=== PATIENT | female | born 1960 | race Caucasian/White ===

== ENCOUNTER 2018-10-17 00:47 | Emergency (ER) | payer BC ==
--- OUTSIDE RECORDS SUMMARY | 2018-10-17 00:50 | XMS REPORT | Clinical Summary ---
:1960 Author Organization [facility] Address [address] [place] [address] Care Team Providers Name Role Phone Stanley Santoro MD Primary Care Provider Allergies No Known Allergies Medications Medication Sig Dispensed Refills Start End Status Date Date nortriptyline Take 1 capsule 60 capsule 2 01/19/20 Active (PAMELOR) 10 MG (10 mg total) 18 019 capsule by mouth 2 (two) times a day. nitrofurantoin, To take after 30 capsule 1 08/31/19 Active macrocrystal-monohyd intercourse 19 020 rate, (MACROBID) 100 MG capsule gabapentin Take 1 capsule 90 capsule 11 08/31/19 Active (NEURONTIN) 300 mg (300 mg total) 19 020 capsule by mouth 3 (three) times a day. amb custom compound Valium 10mg compounded vaginal suppository 90 suppository 0 08/31/19 Active Insert into the vagina 2 times per day for 6 weeks 19 Dispense : 90 Refill: No DIVIGEL 0.5 mg/0.5 APPLY 1 PACKET 28 each 09/07/19 Active gram (0.1 %) gel in TO THIGH DAILY 19 packet estradiol (ESTRACE) Take 1 mg by 0 Discontinued 1 MG tablet mouth daily. 019 gabapentin Take 1 capsule 90 capsule 3 10/05/19 Discontinued (NEURONTIN) 100 mg (100 mg total) 18 018 capsule by mouth 3 (three) times a day. meloxicam (MOBIC) Take 1 tablet 30 tablet 3 10/05/19 Discontinued 7.5 mg tablet (7.5 mg total) 18 019 by mouth daily. nitrofurantoin, Take 1 capsule 30 capsule 0 10/05/19 macrocrystal-monohyd (100 mg total) 18 018 rate, (MACROBID) 100 by mouth as MG capsule needed (intercourse) for up to 30 days. fluconazole Take 1 tablet 3 tablet 0 10/27/19 (DIFLUCAN) 150 MG (150 mg total) 18 018 tablet by mouth daily for 3 doses. nitrofurantoin, Take 1 capsule 30 capsule 1 12/05/19 macrocrystal-monohyd (100 mg total) 18 018 rate, (MACROBID) 100 by mouth daily MG capsule for 30 days. busPIRone (BUSPAR) Take 1 tablet 60 tablet 11 12/05/19 Discontinued 7.5 MG tablet (7.5 mg total) 18 018 by mouth 2 (two) times a day. ciprofloxacin HCl Take 1 tablet 6 tablet 0 12/11/19 (CIPRO) 250 MG (250 mg total) 18 018 tablet by mouth 2 (two) times a day for 3 days. fluconazole Take 1 tablet 1 tablet 0 12/11/19 (DIFLUCAN) 200 MG (200 mg total) 18 018 tablet by mouth once for 1 dose. triamcinolone Inject 1 mL (40 1 mL 0 12/15/19 acetonide (KENALOG) mg total) into 18 018 40 mg/mL injection the shoulder, thigh, or buttocks once for 1 dose. HYDROcodone-acetamin Take 1 tablet 30 tablet 0 12/15/19 ophen (NORCO) 5-325 by mouth every 18 018 mg per tablet 6 (six) hours as needed for moderate pain for up to 30 days. Max Daily Amount: 4 tablets sulfamethoxazole-tri Take 1 tablet 14 tablet 0 12/19/19 methoprim (BACTRIM by mouth 2 18 018 DS) 800-160 mg per (two) times a tablet day for 7 days. fluconazole Take 1 tablet 1 tablet 0 12/19/19 (DIFLUCAN) 200 MG (200 mg total) 18 018 tablet by mouth once for 1 dose. amb custom compound Capsaicin 0.05% in a non-menthol base 30 g 0 12/22/19 Discontinued Apply 1 gram to vulva daily 018 Dispense: 30 grams Refill: none lidocaine Apply topically 35.44 g 0 12/22/19 Discontinued (XYLOCAINE) 5 % as needed for 019 ointment mild pain. polyethylene glycol Take 4,000 mL 4000 mL 0 12/27/19 (GOLYTELY) by mouth once 18 018 236-22.74-6.74 -5.86 for 1 dose. gram solution lactulose Take 30 mL (20 2700 mL 0 12/27/19 (CHRONULAC) 10 g total) by 18 018 gram/15 mL solution mouth 3 (three) times a day for 30 days. methylnaltrexone Take 450 mg by 3 tablet 0 12/27/19 (RELISTOR) 150 mg mouth daily for 18 018 tablet 3 days. zolpidem (AMBIEN) 10 Take 1 tablet 10 tablet 0 12/27/19 mg tablet (10 mg total) 18 018 by mouth nightly as needed for sleep for up to 10 days. diazePAM (VALIUM) 10 Take 1 tablet 1 tablet 0 01/01/20 MG tablet (10 mg total) 18 018 by mouth once for 1 dose. Take 1 tab about 15-20 minutes prior to procedure triamcinolone Inject 1 mL (40 1 mL 0 01/02/20 acetonide (KENALOG) mg total) into 18 018 40 mg/mL injection the shoulder, thigh, or buttocks once for 1 dose. amb custom compound Capsaicin 0.05% in a non-menthol base 30 g 0 01/10/20 Discontinued Apply 1 gram to vulva daily Dispense: 30 grams Refill: none gabapentin Take 1 capsule 90 capsule 11 01/11/20 Discontinued (NEURONTIN) 300 mg (300 mg total) 18 019 capsule by mouth 3 (three) times a day. ciprofloxacin HCl Take 1 tablet 6 tablet 0 01/18/20 (CIPRO) 250 MG (250 mg total) 18 018 tablet by mouth 2 (two) times a day for 3 days. fluconazole Take 1 tablet 1 tablet 0 01/18/20 (DIFLUCAN) 200 MG (200 mg total) 18 018 tablet by mouth once for 1 dose. DIVIGEL 0.5 mg/0.5 APPLY 1 PACKET 11 08/14/19 Discontinued gram (0.1 %) gel in TO THIGH DAILY 19 019 packet Active Problems Not on file Encounters Date Type Specialty Care Team Description 09/11/2018 Telephone Obstetrics and Jaz Bean MD Gynecology 09/06/2018 Orders Only Obstetrics and Liya Alvarez Gynecology RN 08/30/2018 Office Visit Obstetrics and Jaz Bean MD Pudendal neuralgia ( Primary Dx); Gynecology Pelvic pain; Vaginismus; Pelvic floor dysfunction; Frequent UTI; Vulvodynia; Menopause 08/12/2018 Telephone Obstetrics and Jaz Bean MD Gynecology 06/11/2018 Orders Only Obstetrics and Liya Alvarez Pudenlesia neuralgia Gynecology RN (Primary Dx) 06/11/2018 Telephone Obstetrics and Jaz Bean MD Gynecology 01/31/2018 Telephone Obstetrics and Jaz Bean MD Gynecology 01/18/2018 Office Visit Pain Medicine Jaz Bean MD Other chronic pain (Primary Dx); Nikolai Jackson Pudendal neuralgia; MD Surya Vulvodynia 01/17/2018 Telephone Obstetrics and Jaz Bean MD Gynecology 01/17/2018 Orders Only Obstetrics and Jaz Bean MD Gynecology 01/08/2018 Telephone Obstetrics Jaz Farfan MD Gynecology 01/01/2018 Procedure visit Obstetrics and Jaz Bean MD Pudendal neuralgia (Primary Dx); Gynecology Vulvodynia; Atrophic vaginitis; History of recurrent UTIs; Anxiety 12/31/2017 Orders Only Obstetrics and Jaz Bean MD Gynecology 12/31/2017 Telephone Obstetrics and Jaz Bean MD Gynecology 12/26/2017 Emergency Emergency Medicine Lan [place], Constipation, unspecified constipation type (Primary Dx); DO Dehydration; Other chronic pain 12/26/2017 Telephone Obstetrics and Jaz Bean MD Gynecology 12/21/2017 Orders Only Obstetrics and Jaz Bean MD Gynecology 12/19/2017 Telephone Obstetrics and Jaz Bean MD Gynecology 12/17/2017 Telephone Obstetrics and Jaz Bean MD Gynecology 12/14/2017 Orders Only Obstetrics and Jaz Bean MD Gynecology 12/14/2017 Telephone Obstetrics and Jaz Bean MD Gynecology 12/10/2017 Orders Only Obstetrics and Jaz Bean MD Gynecology 12/10/2017 Telephone Obstetrics and Jaz Bean MD Gynecology 12/04/2017 Office Visit Obstetrics and Jaz Bean MD Vulvodynia (Primary Dx); Gynecology Urinary tract infection without hematuria, site unspecified; Atrophic vaginitis; Pudendal neuralgia; Menopause; Anxiety 11/29/2017 Telephone Obstetrics and Jaz Bean MD Gynecology 10/26/2017 Orders Only Obstetrics and Sejal Guillermo Gynecology MD Todd after 10/16/2017 Family History Medical History Relation Name Comments Prostate cancer Brother Lung cancer Father Alzheimer's disease Mother Relation Name Status Comments Brother Father Mother Social History Tobacco Use Types Packs/Day Years Used Date Never Smoker Smokeless Tobacco: Never Used Tobacco Cessation: Counseling Given: No Alcohol Use Drinks/Week oz/Week Comments Yes 2 Glasses of wine 1.2 socially Sex Assigned at Date Recorded Not on file Job Start Date Occupation Industry Not on file Not on file Not on file Travel History Travel Start Travel End No recent travel history available. Last Filed Vital Signs Vital Sign Reading Time Taken Blood Pressure 130/84 08/30/2018 8:55 AM CDT Pulse 84 08/30/2018 8:55 AM CDT Temperature 36.5 C (97.7 F) 12/26/2017 12:54 PM CDT Respiratory Rate 18 12/26/2017 12:54 PM CDT Oxygen Saturation 97% 12/26/2017 12:54 PM CDT Inhaled Oxygen Concentration - - Weight 100 kg (220 lb 9.6 oz) 08/30/2018 8:55 AM CDT Height 165.1 cm (5' 5") 08/30/2018 8:55 AM CDT Body Mass Index 36.71 08/30/2018 8:55 AM CDT Plan of Treatment Date Type Specialty Care Team Description 10/31/2018 Office Visit Physical Therapy Jaz Bean MD [address] [place] [address] [phone] Nyla Preston, PT 11/12/2018 Office Visit Obstetrics and Gynecology Jaz Bean MD [address] [place] [address] [phone] Health Maintenance Due Date Last Done Comments BREAST CANCER SCREENING 2010 COLONOSCOPY SCREENING 2010 SHINGLES VACCINES (#1) 2010 INFLUENZA VACCINE 12/05/2018 Procedures Procedure Name Priority Date/Time Associated Diagnosis Comments THINPREP TIS PAP Routine 08/30/2018 10:40 Pelvic pain Results for this AM CDT procedure are in the results section. URINE CULTURE Routine 02/12/2018 1:46 UTI symptoms Results for this PM CDT procedure are in the results section. URINE CULTURE Routine 01/14/2018 11:54 UTI symptoms Results for this AM CDT procedure are in the results section. XR KUB KIDNEY URETER STAT 12/26/2017 12:12 Results for this BLADDER PM CDT procedure are in the results section. URINALYSIS STAT 12/26/2017 11:50 Results for this AM CDT procedure are in the results section. URINE CULTURE Routine 12/04/2017 6:00 Urinary tract Results for this PM CDT infection without procedure are in hematuria, site the results unspecified section. after 10/16/2017 Results THINPREP TIS PAP (08/30/2018 10:40 AM CDT) Clinical information None given [employer] [place] Date of last menstrual NONE [facility]IVEN [facility] [place] Prev. pap: NONE GIVEN [facility] [place] Prev. bx: NONE [facility]IV[facility] [place] Source Vagina [facility] [place] Statement of adequacy [facility] Comment: DIAGNOSTICS Satisfactory for evaluation. [place] Endocervical/transformation zone component absent. Interpretation/result: Comment: Negative for [facility] intraepithelial [facility]ST[facility] lesion or malignancy. [place] Comment [facility] Comment: DIAGNOSTICS This Pap test has been evaluated with computer [employer] technology. [employer] [facility] Comment: DIAGNOSTICS LLL,CT(ASCP) [place] CT screening location: [address] [address] Comment [facility] Comment: DIAGNOSTICS EXPLANATORY NOTE: [place] The Pap is a screening test for cervical cancer. It is not a diagnostic test and is subject to false negative and false positive results. It is most reliable when a satisfactory sample, regularly obtained, is submitted with relevant clinical findings and history, and when the Pap result is evaluated along with historic and current clinical information. Specimen Swab Resulting Agency Comment Performing Organization Information: Site ID: [id number] Name: [facility] Address: [address] [place] [phone] Director: Lisa Raines Performing Organization Address [facility] [place] [address] Urine culture (02/12/2018 1:46 PM CDT)Only the most recent of3 resultswithin the time period is included. Urine culture SEE NOTE [facility] Comment: [place] CULTURE, URINE, ROUTINE MICRO NUMBER:[id number] TEST STATUS: FINAL SPECIMEN SOURCE: URINE SPECIMEN QUALITY:ADEQUATE RESULT:No Growth Specimen Urine - Urine, clean catch Narrative Performed At FASTING:NO [facility] FASTING: NO Resulting Agency Comment Performing Organization Information: Site ID: [id number] Name: [facility] Address: [address] [place] [phone] Director: Lisa Raines Performing Organization Address [facility] [place] [address] XR Kub Kidney Ureter Bladder (12/26/2017 12:12 PM CDT) Specimen Narrative Performed At EXAMINATION:XR KUB KIDNEY URETER BLADDER [facility] CLINICAL HISTORY:Abd painunspecified COMPARISON:None. IMPRESSION: 1.Stool is present throughout the colon. Surgical clips are seen in the pelvis. Lung bases are free of infiltrates. Surgical clips are seen in the pelvis. Suspicious osseous lesion is not seen. [id number] Procedure Note Hm Interface, Radiology Results Incoming - 12/26/2017 1:23 PM CDT EXAMINATION: XR KUB KIDNEY URETER BLADDER CLINICAL HISTORY: Abd pain unspecified COMPARISON: None. IMPRESSION: 1. Stool is present throughout the colon. Surgical clips are seen in the pelvis. Lung bases are free of infiltrates. Surgical clips are seen in the pelvis. Suspicious osseous lesion is not seen. [id number] Performing Organization Address City/[facility]/Zipcode Phone Number [facility] [address] [place] [address] Urinalysis (12/26/2017 11:50 AM CDT) Glucose, UA Negative Negative [facility] Bilirubin, UA Negative Negative [facility] Ketones, UA 1+ (A) Negative [facility] Specific gravity, =>1.030 1.001 - 1.035 [facility] Blood, UA Negative Negative [facility] pH, UA 5.0 5.0 - 8.5 [facility] Protein, UA Negative Negative [facility] Urobilinogen, UA <2.0 <2.0 [facility] Nitrite, UA Negative Negative [facility] Leukocyte Negative Negative DEPARTMENT OF esterase, UA [facility] Color, UA Yellow [facility] Appearance, UA Slightly Hazy [facility] Specimen Urine Performing Organization Address City/[facility]/Zipcode Phone Number DEPARTMENT OF PATHOLOGY AND [address] [place] [phone] [facility] after 10/16/2017 Advance Directives Patient has advance care planning documents on file. For more information, please contact:Garry Segundo[address] [place] [address]
[2018-10-17 01:22] LABS: Absolute Lymphocytes (CBC) 3.4 K/uL (0.7-4.9); Absolute Monocytes 0.7 K/uL (0.1-1.3); Absolute Neutrophil 7.6 K/uL (1.8-8.0); Basophils % 0.7 % (0-1.3); Eosinophils % 1.3 % (0-4.4); Hematocrit 43.3 % (36.0-45.0); Lymphocytes % 28.3 % (15.3-44.8); Monocytes % 5.7 % (3.3-12.3); RBC Red Blood Cell Count 4.76 M/uL (3.86-4.86)
[2018-10-17] MEDS ORDERED: MEPERIDINE HCL 25 MG/0.5 ML ONE ×3 (01:27→03:08)
[2018-10-17] MEDS ORDERED: FLEET ENEMA ADULT PR ONE (01:28)
[2018-10-17] MEDS ORDERED: NA CHLORIDE 0.9% 1,000 ML ONE (01:28)
[2018-10-17] MEDS ORDERED: GLYCERIN PEDI RECTAL SUPP PR ONE (01:31)
[2018-10-17 01:39] LABS: ALT/SGPT 25 U/L (12-78); AST/SGOT 14 U/L (15-37); Albumin 3.8 g/dL (3.4-5.0); Alkaline Phosphatase 102 U/L (45-117); BUN Blood Urea Nitrogen 17 mg/dL (7-18); Bicarbonate 26 mmol/L (21-32); Bilirubin Direct < 0.1 mg/dL (0-0.2); Bilirubin Total 0.3 mg/dL (0.2-1.0); Glucose Level 123 mg/dL (74-106); Lipase 228 U/L (73-393); Potassium 3.4 mmol/L (3.5-5.1); Protein, Total 7.6 g/dL (6.4-8.2); Sodium Level 141 mmol/L (136-145)
--- NOTE | 2018-10-17 04:02 | ER ---
Nurse's Notes [facility] Name: Paulina Ryan Age: 57 yrs Sex: Female : 1960 Arrival Date: 10/17/2018 Time: 00:50 Bed 13 Private MD: Stanley Santoro Diagnosis: Constipation, unspecified;Possible acalculous cholecystitis Presentation: 10/17 00:57 Presenting complaint: Patient states: "I think I'm severely impacted"; Patient lp1 restless, crying, pain to entire abdomen, lower back; States last BM on Sunday, has been unable to pass gas; States [employer] she was rolling around on floor and she was able to pass some gas. Transition of care: patient was not received from another setting of care. Onset of symptoms. Risk Assessment: Do you want to hurt yourself or someone else? Patient reports no desire to harm self or others. Initial Sepsis Screen: Does the patient meet any 2 criteria? No. Patient's initial sepsis screen is negative. Does the patient have a suspected source of infection? No. Patient's initial sepsis screen is negative. Care prior to arrival: None. 00:57 Method Of Arrival: Wheelchair lp1 00:57 Acuity: CHENTE 3 lp1 Historical: - Allergies: 01:00 No Known Allergies; lp1 - Home Meds: 01:00 gabapentin oral oral [Active]; lp1 - PMHx: 01:00 nerve pain; lp1 - PSHx: 01:00 Appendectomy; ; lp1 - Immunization history:: Adult Immunizations up to date. - Social history:: Smoking status: Patient/guardian denies using tobacco. - Ebola Screening: : No symptoms or risks identified at this time. - Family history:: not pertinent. - Hospitalizations: : No recent hospitalization is reported. Screenin:01 Abuse screen: Denies threats or abuse. Denies injuries from another. Nutritional lp1 screening: No deficits noted. Tuberculosis screening: No symptoms or risk factors identified. Fall Risk None identified. Assessment: 01:00 General: Appears uncomfortable, Behavior is anxious, crying, restless. Pain: Complains lp1 of pain in lumbar area and abdomen Pain currently is 10 out of 10 on a pain scale. Noted to be crying, restless. Neuro: Level of Consciousness is awake, alert, obeys commands, Oriented to person, place, time, situation. Cardiovascular: Patient's skin is warm and dry. Respiratory: Respiratory effort is even, unlabored. GI: Abdomen is distended, Bowel sounds present X 4 quads. Abdomen is tender to palpation X 4 quads. Reports constipation. : No signs and/or symptoms were reported regarding the genitourinary system. EENT: No signs and/or symptoms were reported regarding the EENT system. Derm: Skin is pink, warm \\T\\ dry. Musculoskeletal: No deficits noted. 01:30 Reassessment: Patient continuing to be restless, no pain relief; Provider notified. lp1 02:20 Reassessment: Patient returned from bathroom; States able to have BM but continued lp1 abdominal pain; Provider notified of continued pain. 02:45 Reassessment: Patient returned from CT; Verbal order per Provider for Demerol 25mg IV. lp1 03:45 Reassessment: Patient appears in no apparent distress at this time. Patient and/or jb4 family updated on plan of care and expected duration. Pain level reassessed. Patient is alert, oriented x 3, equal unlabored respirations, skin warm/dry/pink. Provider at the bedside. 04:00 Reassessment: Dr. Shin at bedside to discuss results with patient and family ; plan of lp1 care discussed; Patient prefers to be discharged and go to another facility for further evaluation; Patient states some improvement of abdominal pain at this time; rated at 7/10. Vital Signs: 00:59 BP 171 / 98; Pulse 68; Resp 18; Temp 97.5(O); Pulse Ox 100% on R/A; Weight 86.18 kg; lp1 Height 5 ft. 5 in. (165.10 cm); Pain 10/10; 02:20 BP 146 / 79; Pulse 63; Resp 18; Pulse Ox 100% on R/A; Pain 8/10; lp1 04:00 BP 131 / 88; Pulse 77; Resp 16; Pulse Ox 100% on R/A; jb4 04:15 Pain 7/10; lp1 00:59 Body Mass Index 31.62 (86.18 kg, 165.10 cm) lp1 ED Course: 00:50 Patient arrived in ED. am2 00:51 Stanley Santoro MD is Private Physician. am2 00:57 Endy Shin MD is Attending Physician. rn 00:59 Triage completed. lp1 00:59 Arm band placed on left wrist. lp1 01:01 Patient has correct armband on for positive identification. Placed in gown. Bed in low lp1 position. Pulse ox on. NIBP on. 01:06 Abiodun Chavez, RN is Primary Nurse. jb4 01:08 Initial lab(s) drawn, by ms, sent to lab. Inserted saline lock: 20 gauge in right lt1 antecubital area, using aseptic technique. 01:46 Minoo Pinedo, RN is Primary Nurse. lp1 02:[address] via stretcher. lp1 02:54 CT completed. Patient tolerated procedure well. Patient moved back from CT. eh 02:55 CT Abd/Pelvis - IV Contrast Only In Process Unspecified. EDMS 04:01 Roscoe Reveles MD is Referral Physician. rn 04:25 No provider procedures requiring assistance completed. IV discontinued, No lp1 redness/swelling at site. Pressure dressing applied. Administered Medications: 01:20 Drug: NS 0.9% 1000 ml Route: IV; Rate: 1000 ml; Site: right antecubital; lp1 03:14 Follow up: IV Status: Completed infusion; IV Intake: 1000ml lp1 01:20 Drug: Demerol 25 mg Route: IVP; Site: right antecubital; lp1 01:30 Follow up: Response: Pain is unchanged, physician notified lp1 01:20 Drug: Glycerin (Adult) Suppository 1 supp Route: IL; lp1 02:30 Follow up: Response: No adverse reaction lp1 01:32 Drug: Demerol 25 mg Route: IVP; Site: right antecubital; lp1 02:15 Follow up: Response: Pain is unchanged, physician notified lp1 01:42 Drug: Fleet Enema 133 ml Route: IL; lp1 02:30 Follow up: Response: No adverse reaction; Other; Patient states moderate BM lp1 02:57 Drug: Demerol 25 mg Route: IVP; Site: right antecubital; lp1 03:11 Follow up: Response: Pain is decreased lp1 Intake: 03:14 IV: 1000ml; Total: 1000ml. lp1 Outcome: 04:02 Discharge ordered by . rn 04:10 Discharged to home ambulatory, with significant other. lp1 04:10 Condition: good 04:10 Discharge instructions given to patient, Instructed on discharge instructions, follow up and referral plans. Demonstrated understanding of instructions, follow-up care. 04:15 Patient left the ED. lp1 Signatures: Dispatcher [employer] EDSridhar Conner Roman, MD MD rn Pena, Laura RN RN lp1 Abiodun Chavez RN RN jb4 Dayna Mueller am2 Nelida La 1 Corrections: (The following items were deleted from the chart) 04:03 03:45 BP 131 / 88; Pulse 77bpm; Resp 16bpm; Pulse Ox 100% RA; jb4 jb4 04:27 04:00 Reassessment: Dr. Shin at bedside to discuss results with patient and family ; lp1 plan of care discussed; Patient prefers to be discharged and go to another facility for further evaluation lp1 04:28 04:27 Patient left the ED. lp1 lp1
--- NOTE | 2018-10-17 04:03 | EDPHYS ---
Physician Documentation [facility] Name: Paulina Ryan Age: 57 yrs Sex: Female : 1960 Arrival Date: 10/17/2018 Time: 00:50 Bed 13 Private MD: Stanley Santoro ED Physician Endy Shin HPI: 10/17 01:04 This 57 yrs old Female presents to ER via Wheelchair with complaints of rn Abdominal Pain, Back Pain, Constipation. 01:05 The patient presents with abdominal pain abdominal distention. Onset: The rn symptoms/episode began/occurred just prior to arrival. The symptoms do not radiate. Associated signs and symptoms: Pertinent positives: constipation, Pertinent negatives: nausea and vomiting, blood in stools, fever. The symptoms are described as intermittent, sharp. Modifying factors: The symptoms are alleviated by nothing, the symptoms are aggravated by touching the area. Severity of pain: At its worst the pain was moderate in the emergency department the pain is unchanged. The patient has experienced a previous episode. The patient has not recently seen a physician. Reports abd pain, feels bloated, went to bed fine, has irregular bowel movements, reports woke up with abd pain, sharp, stabbing, able to pas gas. Has been impacted before and manually assisted herself in past. Reports last BM 2 days ago which isn't that abnormal for her. No vomiting.. Historical: - Allergies: 01:00 No Known Allergies; lp1 - Home Meds: 01:00 gabapentin oral oral [Active]; lp1 - PMHx: 01:00 nerve pain; lp1 - PSHx: 01:00 Appendectomy; ; lp1 - Immunization history:: Adult Immunizations up to date. - Social history:: Smoking status: Patient/guardian denies using tobacco. - Ebola Screening: : No symptoms or risks identified at this time. - Family history:: not pertinent. - Hospitalizations: : No recent hospitalization is reported. ROS: 01:05 Constitutional: Negative for fever, chills, and weight loss, Eyes: Negative for injury, rn pain, redness, and discharge, Neck: Negative for injury, pain, and swelling, Cardiovascular: Negative for chest pain, palpitations, and edema, Respiratory: Negative for shortness of breath, cough, wheezing, and pleuritic chest pain, Abdomen/GI: + abd pain and constipation Back: Negative for injury : Negative for injury, bleeding, discharge, and swelling, MS/Extremity: Negative for injury and deformity, Skin: Negative for injury, rash, and discoloration, Neuro: Negative for headache, weakness, numbness, tingling, and seizure. Exam: 01:05 Constitutional: This is a well developed, well nourished patient who is awake, alert, rn appears uncomfortable, crying Head/Face: Normocephalic, atraumatic. Eyes: Pupils equal round and reactive to light, extra-ocular motions intact. Lids and lashes normal. Conjunctiva and sclera are non-icteric and not injected. Cornea within normal limits. Periorbital areas with no swelling, redness, or edema. ENT: MMM Abdomen/GI: soft, mild mid abd tenderness, no rebound, no peritoneal signs, no masses Skin: Warm, dry MS/ Extremity: Pulses equal, no cyanosis. Neurovascular intact. Full, normal range of motion. Equal circumference. Neuro: Awake and alert, GCS 15. Vital Signs: 00:59 BP 171 / 98; Pulse 68; Resp 18; Temp 97.5(O); Pulse Ox 100% on R/A; Weight 86.18 kg; lp1 Height 5 ft. 5 in. (165.10 cm); Pain 10/10; 02:20 BP 146 / 79; Pulse 63; Resp 18; Pulse Ox 100% on R/A; Pain 8/10; lp1 04:00 BP 131 / 88; Pulse 77; Resp 16; Pulse Ox 100% on R/A; jb4 04:15 Pain 7/10; lp1 00:59 Body Mass Index 31.62 (86.18 kg, 165.10 cm) lp1 Procedures: 03:57 Performed Bedside ultrasound performed by Dr. Shin to further evaluate gallbladder rn given ultrasound not available until 7AM or maybe later. Gallbladder appears distended, no stones, gallbladder wall borderline at 3.2 mm, no obvious pericholecystic fluid noted. . MDM: 00:57 Patient medically screened. rn 03:57 Differential diagnosis: cholecystitis, Cholelithiasis, diverticulitis, gastritis, rn gastroesophageal reflux disease, non-specific abd pain, constipation. Data reviewed: vital signs, nurses notes, lab test result(s), radiologic studies, CT scan, and as a result, I will admit patient. Counseling: I had a detailed discussion with the patient and/or guardian regarding: the historical points, exam findings, and any diagnostic results supporting the discharge/admit diagnosis, lab results, radiology results, the need for further work-up and treatment in the hospital. Response to treatment: the patient's symptoms have mildly improved after treatment, and as a result, I will admit patient. ED course: Recommended we hold her here for ultrasound when they arrive at 0700, and then admission if needed for early cholecystitis, declines, states he was decided to take her to another hospital, states plans on taking her straight to [facility] in [place]. Doesn't give reason for doing so, spoke with him about risks of driving her there and also mentioned she is still in pain, he states he has made up his mind. I printed out the results for him so that maybe they don't have to repeat the w/u and get her the ultrasound she needs. No signs of impaction or even significant stool burden, possibly ileus due to abdominal inflammation elsewhere. . 04:02 ED course: Requests to be discharged. . 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 10/17 01:03 Order name: Basic Metabolic Panel rn 10/17 01:03 Order name: CBC with Diff; Complete Time: 01:32 rn 10/17 01:03 Order name: Hepatic Function; Complete Time: 02:00 rn 10/17 01:03 Order name: Lipase; Complete Time: 02:00 rn 10/17 01:04 Order name: Creatinine (Radiology Only); Complete Time: 02:00 EDNJ 10/17 01:03 Order name: CT Abd/Pelvis - IV Contrast Only rn 10/17 01:04 Order name: Basic Metabolic Panel; Complete Time: 02:00 EDNJ 10/17 01:03 Order name: IV Saline Lock; Complete Time: 01:08 rn 10/17 01:03 Order name: Labs collected and sent; Complete Time: 01:08 rn Administered Medications: 01:20 Drug: NS 0.9% 1000 ml Route: IV; Rate: 1000 ml; Site: right antecubital; lp1 03:14 Follow up: IV Status: Completed infusion; IV Intake: 1000ml lp1 01:20 Drug: Demerol 25 mg Route: IVP; Site: right antecubital; lp1 01:30 Follow up: Response: Pain is unchanged, physician notified lp1 01:20 Drug: Glycerin (Adult) Suppository 1 supp Route: KS; lp1 02:30 Follow up: Response: No adverse reaction lp1 01:32 Drug: Demerol 25 mg Route: IVP; Site: right antecubital; lp1 02:15 Follow up: Response: Pain is unchanged, physician notified lp1 01:42 Drug: Fleet Enema 133 ml Route: KS; lp1 02:30 Follow up: Response: No adverse reaction; Other; Patient states moderate BM lp1 02:57 Drug: Demerol 25 mg Route: IVP; Site: right antecubital; lp1 03:11 Follow up: Response: Pain is decreased lp1 Disposition: 10/17/18 04:02 Discharged to Home. Impression: Constipation, unspecified, Possible acalculous cholecystitis. - Condition is Stable. - Discharge Instructions: Abdominal Pain, Adult, Constipation, Adult. - Medication Reconciliation Form, Thank You Letter, Antibiotic Education, Prescription Opioid Use form. - Follow up: Roscoe Reveles MD; When: Upon discharge from the Emergency Department; Reason: Recheck today's complaints, Re-evaluation by your physician. - Problem is new. - Symptoms have improved. Signatures: Dispatcher [employer] EDMS Endy Shin MD MD rn Pena, Laura, RN RN lp1 Corrections: (The following items were deleted from the chart) 04:27 04:02 10/17/2018 04:02 Discharged to Home. Impression: Constipation, unspecified; lp1 Possible acalculous cholecystitis. Condition is Stable. Forms are Medication Reconciliation Form, Thank You Letter, Antibiotic Education, Prescription Opioid Use. Follow up: Roscoe Reveles; When: Upon discharge from the Emergency Department; Reason: Recheck today's complaints, Re-evaluation by your physician. Problem is new. Symptoms have improved. rn
[2018-10-17 04:37] VITALS: O2SAT 100
[2018-10-17 04:39] VITALS: TEMP 97.5
[2018-10-17 04:40] VITALS: BP 131/88
--- NOTE | 2018-10-17 10:27 | RAD REPORT ---
EXAM DESCRIPTION: CT - Abdomen Pelvis W Contrast - 10/17/2018 6:53 am CLINICAL HISTORY: 57-year-old female with left-sided abdominal pain, history of appendectomy and end ometriosis surgery as well as two prior sections TECHNIQUE: Axial CT imaging of the abdomen and pelvis was performed following the administration of intravenous contrast.. Sagittal and coronal reconstructed images were then performed. The CT stud y is performed according to ALARA (as low as reasonably achievable) or ALARA/IMAGE GENTLY, with autom atic adjustment of mA and/or kV according to patient size. Performed on: 10/17/2018 at 2:44 AM. COMPARISON: Prior CT abdomen and pelvis performed on 03/11/2012 FINDINGS: Lung bases: The lung bases are grossly clear. Liver: The liver is top normal in size and is normal in configuration. No focal hepatic abnormalities are identified. Liver attenuation is within normal limits. Spleen: The spleen is normal is size, configuration and attenuation. Gallbladder and bile duct: The gallbladder is moderately distended. There is questionable perichole cystic inflammation. There is no biliary ductal dilatation. Pancreas: The pancreas is grossly normal in size and configuration. Adrenal Glands: The adrenal glands are normal in size and configuration. Kidneys: The kidneys are normal in size and configuration. There is no evidence of hydronephrosis. Th ere is no evidence of nephrolithiasis. No definite solid or cystic renal mass lesions are identified. Stomach: The stomach is grossly normal. There is no definite hiatal hernia. Bowel: The bowel gas pattern is non specific and non obstructive. There is questionable bowel wall th ickening involving the rectosigmoid colon. Appendix: The appendix is surgically absent. Free air: There is no evidence of free air. Free fluid: There is no evidence of free fluid. Vasculature: The aorta is normal in caliber and contour. The inferior vena cava is grossly unremarkab le. There are mild atherosclerotic calcifications along the aorta and iliac arteries. Lymphadenopathy: No pathologic lymphadenopathy is identified. Bladder: The bladder is well distended and smooth in contour. Reproductive: The uterus is surgically absent. Bones: No acute osseous abnormalities are identified. Soft tissues: No focal soft tissue abnormalities are identified. IMPRESSION: 1. Nonspecific and nonobstructive bowel gas pattern. There is questionable bowel wall th ickening involving the rectosigmoid colon. 2. Moderate distention of the gallbladder with questionable pericholecystic inflammation. 3. Remote appendectomy and hysterectomy. 4. No focal abnormalities are identified to explain the patient's left-sided symptoms. Electronically signed by: Tonia Lake DO 10/17/2018 3:12 AM CDT Due to temporary technical issues with the PACS/Fluency reporting system, reports are being signed by the in house radiologist as a courtesy to ensure prompt reporting. The interpreting radiologist is f ully responsible for the content of the report.
== END 2018-10-17 04:27 | disposition home or self-care (01) ==
LOC: ER 00:47
DX: K59.00 Constipation, unspecified (principal)
CPT/HCPCS: 36415; 74177; 80048; 80076; 83690; 85025; 96361; 96374; 99284; J2175; J7030; Q9967

== ENCOUNTER 2020-06-23 13:29 | Inpatient (IN) | payer BC ==
[2020-06-23] MEDS ORDERED: ACETAMINOPHEN 500 MG TAB ONE (14:34)
[2020-06-23] MEDS ORDERED: NA CHLORIDE 0.9% 1,000 ML ONE (14:34)
[2020-06-23 15:14] LABS: Absolute Lymphocytes (CBC) 1.4 K/uL (0.7-4.9); Basophils % 0.3 % (0-1.3); Hematocrit 36.6 % (36.0-45.0); Lymphocytes % 13.4 % (15.3-44.8); MPV 7.8 fL (7.6-11.3); RBC Red Blood Cell Count 4.15 M/uL (3.86-4.86)
[2020-06-23 15:15] LABS: Protime INR 1.13
[2020-06-23 15:34] LABS: Albumin 2.6 g/dL (3.4-5.0); Bilirubin Direct 0.2 mg/dL (0-0.2); Bilirubin Total 0.6 mg/dL (0.2-1.0); Magnesium 2.3 mg/dL (1.8-2.4); Potassium 3.7 mmol/L (3.5-5.1); Protein, Total 6.5 g/dL (6.4-8.2); Troponin (Emerg Dept Use Only) 0.04 ng/mL (0.0-0.045)
[2020-06-23 15:50] LABS: SARS-COV-2 RT PCR POSITIVE (NEGATIVE)
--- NOTE | 2020-06-23 16:28 | RAD REPORT ---
EXAM DESCRIPTION: RAD - Chest Single View - 06/23/2020 3:16 pm CLINICAL HISTORY: shortness of breath, lethargy, fever COMPARISON: Two view chest April 09, 2020 TECHNIQUE: AP portable chest image was obtained 06/23/2020 3:16 pm . FINDINGS: Lung volumes are low. Large body habitus and under penetrated film technique further accen tuate the chest findings. Bilateral mid and lower lung field airspace opacification is present worse on the left. Trachea is mi dline. Acute failure or volume overload are not suspected. Heart and vasculature are normal. No measurable pleural effusion and no pneumothorax. No acute bony abnormality seen. No acute aortic findings suspected. IMPRESSION: Limited study showing bilateral lung parenchymal opacification. Bilateral nonspecific pneumonia pattern is present. In the current clinical environment, mild to mode rate COVID-19 pneumonia would be a primary consideration.
--- NOTE | 2020-06-23 16:30 | RAD REPORT ---
EXAM DESCRIPTION: CT - Chest For Pe Angio - 06/23/2020 4:03 pm CLINICAL HISTORY: SOB, COVID COMPARISON: CTANGIO CHEST FOR PE dated 11/18/2012; Chest Single View dated 06/23/2020 TECHNIQUE: Dynamically enhanced 3 mm thick images of the chest were obtained during administration o f approximately 150mL Isovue 370 IV contrast. Coronal and oblique MIP reconstruction images were gene rated and reviewed. Exam utilizes a protocol to evaluate the pulmonary arterial tree. All CT scans are performed using dose optimization technique as appropriate and may include automated exposure control or mA/KV adjustment according to patient size. FINDINGS: No pulmonary emboli are identified. The aorta as imaged shows no acute or suspicious finding. No pericardial thickening or effusion. Bilateral airspace consolidation and ground-glass opacification are present primarily in a peripheral distribution. There is some lung base atelectasis present along with trace bilateral pleural effusio ns. No pneumothorax. No pleural based mass. No mediastinal or hilar suspicious masses. No chest wall masses or abnormal axillary lymphadenopathy. IMPRESSION: No pulmonary emboli identified. Bilateral lung parenchymal opacification consistent with a moderate severity COVID-19 pneumonia.
--- NOTE | 2020-06-23 17:01 | ER ---
Nurse's Notes [facility] Name: Paulina Ryan Age: 59 yrs Sex: Female : 1960 Arrival Date: 06/23/2020 Time: 13:34 Bed 19 Private MD: Diagnosis: Coronavirus infection, unspecified;Hypoxia Presentation: 06/23 13:44 Chief complaint: Patient states: Lethargic, very weak, no appetite for weeks. Covid ll1 positive 06/09/20. Fever 102.8 oral in triage. Coronavirus screen: Client denies travel out of the [place] in the last 14 days. congestion, cough unrelated to allergies, difficulty breathing, fatigue, fever, headache, nausea, loss of taste or smell, vomiting. Client presents with at least one sign or symptom that may indicate coronavirus-19. Standard/surgical mask placed on the client. Ebola Screen: Patient denies travel to an Ebola-affected area in the 21 days before illness onset. Initial Sepsis Screen: Does the patient meet any 2 criteria? HR > 90 bpm. No. Patient's initial sepsis screen is negative. Does the patient have a suspected source of infection? Yes: Productive cough/pneumonia. Risk Assessment: Do you want to hurt yourself or someone else? Patient reports no desire to harm self or others. Onset of symptoms was June 08, 2020. 13:44 Method Of Arrival: Wheelchair ll1 13:44 Acuity: CHENTE 2 ll1 Historical: - Allergies: 13:47 No Known Allergies; ll1 - PMHx: 13:47 nerve pain; PRE DIABETES; ll1 - PSHx: 13:47 Appendectomy; ; ll1 - Immunization history:: Flu vaccine is up to date. - Social history:: Smoking status: Patient denies any tobacco usage or history of. Screenin:58 Abuse screen: Denies threats or abuse. Denies injuries from another. Nutritional ph screening: No deficits noted. Tuberculosis screening: No symptoms or risk factors identified. Fall Risk None identified. Assessment: 14:03 General: Appears in no apparent distress. uncomfortable, Behavior is calm, cooperative, ph appropriate for age, Reports chills for fever for > 3 days, feeling ill for > 3 days, fatigue for >3 days. Pain: Denies pain. Neuro: Level of Consciousness is awake, alert, obeys commands, Oriented to person, place, time, situation, Reports weakness. Cardiovascular: Patient's skin is warm and dry. Respiratory: Reports shortness of breath at rest cough that is Airway is patent Respiratory effort is even, unlabored, Respiratory pattern is regular, symmetrical. GI: Reports nausea. Derm: Skin is intact, Skin is pink, warm \T\ dry. Musculoskeletal: Circulation, motion, and sensation intact. Range of motion: intact in all extremities. 15:00 Reassessment: Patient appears in no apparent distress at this time. Patient and/or ph family updated on plan of care and expected duration. Pain level reassessed. Patient is alert, oriented x 3, equal unlabored respirations, skin warm/dry/pink. 16:00 Reassessment: Patient appears in no apparent distress at this time. Patient and/or ph family updated on plan of care and expected duration. Pain level reassessed. Patient is alert, oriented x 3, equal unlabored respirations, skin warm/dry/pink. 17:00 Reassessment: Patient appears in no apparent distress at this time. Patient and/or ph family updated on plan of care and expected duration. Pain level reassessed. Patient is alert, oriented x 3, equal unlabored respirations, skin warm/dry/pink. 18:00 Reassessment: Patient appears in no apparent distress at this time. Patient and/or ph family updated on plan of care and expected duration. Pain level reassessed. Patient is alert, oriented x 3, equal unlabored respirations, skin warm/dry/pink. Pt resting comfortably w/ lights off in room, remains on oxygen. 18:30 Reassessment: Hospitalist at bedside to speak w/ pt. ph 19:00 Reassessment: Patient appears in no apparent distress at this time. Patient and/or ph family updated on plan of care and expected duration. Pain level reassessed. Patient is alert, oriented x 3, equal unlabored respirations, skin warm/dry/pink. Vital Signs: 13:44 BP 99 / 64; Pulse 106; Resp 18; Temp 102.8; Pulse Ox 70% ; Weight 94.35 kg; Height 5 ll1 ft. 4 in. (162.56 cm); Pain 5/10; 13:57 Pulse Ox 91% on 4 lpm NC; ph 14:45 BP 92 / 57; Pulse 81; Resp 15; Pulse Ox 91% on 4 lpm NC; ph 15:46 BP 100 / 54; Pulse 78; Resp 17; Pulse Ox 92% on 4 lpm NC; dh3 16:59 BP 101 / 54; Pulse 64; Resp 18; Pulse Ox 94% on 4 lpm NC; ph 13:44 Body Mass Index 35.70 (94.35 kg, 162.56 cm) ll1 ED Course: 13:34 Patient arrived in ED. rg4 13:46 Triage completed. ll1 13:47 Arm band placed on Patient placed in an exam room, on a stretcher. ll1 13:53 Armando Chairez PA is PHCP. [facility] 13:53 Merle Lucero MD is Attending Physician. jm 13:56 Rosangela Lagunas, ROHIT is Primary Nurse. 13:59 Sejal Soto, ROHIT is Primary Nurse. ph 14:05 Patient has correct armband on for positive identification. Bed in low position. Call ph light in reach. Side rails up X2. monitoring specialist on. Pulse ox on. NIBP on. Door closed. Noise minimized. 14:55 Missed attempt(s): 20 gauge in right forearm. Bleeding controlled, band aid applied, ph catheter tip intact. 15:03 Initial lab(s) drawn, by il, sent to lab. Inserted saline lock: 20 gauge in left 3 antecubital area, using aseptic technique. Blood collected. 15:16 EKG done, by ED staff, reviewed by Armando FERGUSON. [facility] 15:17 XRAY Chest (1 view) In Process Unspecified. EDMS 16:04 CT Chest For PE Angio In Process Unspecified. EDMS 16:59 Chilango Nguyễn DO is Hospitalizing Provider. [facility] 20:09 Primary Nurse role handed off by Sejal Soto, RN mw2 20:46 Rajan Camarena, ROHIT is Primary Nurse. em Administered Medications: 14:59 Drug: Tylenol 1000 mg Route: PO; ph 18:09 Follow up: Response: No adverse reaction; Temperature is decreased ph 15:00 Drug: NS 0.9% 1000 ml Route: IV; Rate: 125 ml/hr; Site: right forearm; ph 18:09 Follow up: Response: No adverse reaction; IV Status: Infusion continued upon admission; ph IV Intake: 375ml 18:08 Drug: Decadron - Dexamethasone 10 mg Route: IVP; Site: right forearm; ph 18:09 Follow up: Response: No adverse reaction ph Intake: 18:09 IV: 375ml; Total: 375ml. ph Outcome: 16:59 Decision to Hospitalize by Provider. vaibhav 21:52 Patient left the ED. mw2 Signatures: Dispatcher [employer] EDMS Armando Chairez PA PA [facility] Rajan Camarena, RN RN Rosangela Ortiz RN RN Sejal Soto RN RN Soraya Holland 4 Mckenzie Mancia [facility] Judah Mccain 2 Celina Sommers RN RN ll1
--- NOTE | 2020-06-23 17:02 | EDPHYS ---
Physician Documentation [facility] Name: Paulina Ryan Age: 59 yrs Sex: Female : 1960 Arrival Date: 06/23/2020 Time: 13:34 Bed 19 Private MD: ED Physician Merle Lucero HPI: 06/23 14:24 This 59 yrs old Female presents to ER via Wheelchair with complaints of jmm Lethargic. 14:24 The patient has shortness of breath at rest. Onset: The symptoms/episode began/occurred jmm gradually, 2/. Duration: The symptoms are intermittent. The patient's shortness of breath is aggravated by nothing, is alleviated by nothing. This is a 59 year old female with a history of HLP, that presents to ED with complaints of shortness of breath beginning when diagnosed with covid on 06/09. Patient states she has been admitted before due to hypoxia. . Historical: - Allergies: 13:47 No Known Allergies; ll1 - PMHx: 13:47 nerve pain; PRE DIABETES; ll1 - PSHx: 13:47 Appendectomy; ; ll1 - Immunization history:: Flu vaccine is up to date. - Social history:: Smoking status: Patient denies any tobacco usage or history of. ROS: 14:24 Constitutional: Positive for fever. jmm 14:24 Respiratory: Positive for cough, shortness of breath. 14:24 All other systems are negative. Exam: 14:24 Constitutional: This is a well developed, well nourished patient who is awake, alert, jmm and in no acute distress. Head/Face: atraumatic. Eyes: EOMI, no conjunctival erythema appreciated ENT: Moist Mucus Membranes Neck: Trachea midline, Supple Chest/axilla: Normal chest wall appearance and motion. Cardiovascular: Regular rate and rhythm. No edema appreciated Respiratory: Normal respirations, no respiratory distress appreciated Abdomen/GI: Non distended, soft Back: Normal ROM Skin: General appearance color normal MS/ Extremity: Moves all extremities, no obvious deformities appreciated, no edema noted to the lower extremities Neuro: Awake and alert, normal gait Psych: Behavior is normal, Mood is normal, Patient is cooperative and pleasant Vital Signs: 13:44 BP 99 / 64; Pulse 106; Resp 18; Temp 102.8; Pulse Ox 70% ; Weight 94.35 kg; Height 5 ll1 ft. 4 in. (162.56 cm); Pain 5/10; 13:57 Pulse Ox 91% on 4 lpm NC; ph 14:45 BP 92 / 57; Pulse 81; Resp 15; Pulse Ox 91% on 4 lpm NC; ph 15:46 BP 100 / 54; Pulse 78; Resp 17; Pulse Ox 92% on 4 lpm NC; dh3 16:59 BP 101 / 54; Pulse 64; Resp 18; Pulse Ox 94% on 4 lpm NC; ph 13:44 Body Mass Index 35.70 (94.35 kg, 162.56 cm) ll1 MDM: 14:04 Patient medically screened. [facility] 16:56 Data reviewed: vital signs, nurses notes. Counseling: I had a detailed discussion with vaibhav the patient and/or guardian regarding: the historical points, exam findings, and any diagnostic results supporting the discharge/admit diagnosis, lab results, the need for further work-up and treatment in the hospital. ED course: I discussed the patient with Dr. Johnson whom accepted the patient for admission. . 06/23 14:10 Order name: Basic Metabolic Panel; Complete Time: 15:36 [facility] 06/23 14:10 Order name: CBC with Diff; Complete Time: 15:19 [facility] 06/23 14:10 Order name: LFT's; Complete Time: 15:36 [facility] 06/23 14:10 Order name: Magnesium; Complete Time: 15:36 [facility] 06/23 14:10 Order name: NT PRO-BNP; Complete Time: 15:36 [facility] 06/23 14:10 Order name: PT-INR; Complete Time: 15:19 [facility] 06/23 14:10 Order name: Troponin (emerg Dept Use Only); Complete Time: 15:36 [facility] 06/23 14:10 Order name: XRAY Chest (1 view); Complete Time: 16:40 [facility] 06/23 14:10 Order name: EKG; Complete Time: 14:11 [facility] 06/23 14:10 Order name: Cardiac monitoring; Complete Time: 15:21 [facility] 06/23 14:10 Order name: EKG - Nurse/Tech; Complete Time: 15: [facility] 06/23 14:10 Order name: IV Saline Lock; Complete Time: 15:10 [facility] 06/23 14:10 Order name: Labs collected and sent; Complete Time: 15:10 [facility] 06/23 14:10 Order name: O2 Per Protocol; Complete Time: 15:10 [facility] 06/23 14:10 Order name: O2 Sat Monitoring; Complete Time: 15:10 [facility] 06/23 15:37 Order name: CT Chest For PE Angio; Complete Time: 16:40 [facility] 06/23 15:51 Order name: COVID-19/FLU A+B; Complete Time: 15:52 EDUT 06/23 17:29 Order name: CRP; Complete Time: 18:23 la1 06/23 17:29 Order name: Ferritin; Complete Time: 18:23 la1 06/23 18:49 Order name: Basic Metabolic Panel EDMS 06/23 18:49 Order name: Basic Metabolic Panel EDMS 06/23 18:49 Order name: CONS Physician Consult EDMS 06/23 18:49 Order name: Regular EDMS 06/23 18:49 Order name: Urinalysis EDMS 06/23 18:49 Order name: C-Reactive Protein EDMS 06/23 18:49 Order name: C-Reactive Protein EDMS 06/23 18:49 Order name: C-Reactive Protein EDMS 06/23 18:49 Order name: C-Reactive Protein EDMS 06/23 18:49 Order name: CBC with Automated Diff EDMS 06/23 18:49 Order name: CBC with Automated Diff EDMS 06/23 18:49 Order name: Ferritin EDMS 06/23 18:49 Order name: Ferritin EDMS 06/23 18:49 Order name: Ferritin EDMS 06/23 18:49 Order name: Ferritin EDMS 06/23 18:49 Order name: Magnesium EDMS 06/23 18:49 Order name: Magnesium EDMS Administered Medications: 14:59 Drug: Tylenol 1000 mg Route: PO; ph 18:09 Follow up: Response: No adverse reaction; Temperature is decreased ph 15:00 Drug: NS 0.9% 1000 ml Route: IV; Rate: 125 ml/hr; Site: right forearm; ph 18:09 Follow up: Response: No adverse reaction; IV Status: Infusion continued upon admission; ph IV Intake: 375ml 18:08 Drug: Decadron - Dexamethasone 10 mg Route: IVP; Site: right forearm; ph 18:09 Follow up: Response: No adverse reaction ph Disposition: 06/23/20 16:59 Hospitalization ordered by Chilango Nguyễn for Observation. Preliminary diagnosis are Coronavirus infection, unspecified, Hypoxia. - Bed requested for Telemetry/MedSurg (observation). - Status is Observation. mw2 - Condition is Stable. - Problem is new. - Symptoms are unchanged. Addendum: 07/16/2020 02:11 Co-signature as Attending Physician, Merle Lucero MD. m a2 Signatures: Dispatcher [employer] EDMS Armando Chairez PA PA jmm Hall, Patricia RN RN Merle Lucero MD MD ma2 Judah Mccain 2 Celina Sommers RN RN ll1 Corrections: (The following items were deleted from the chart) 06/23 15:03 14:18 CORONAVIRUS+MR.LAB.BRZ ordered. EDUT EDMS 15:04 14:18 Influenza Screen (A \T\ B)+BA.LAB.BRZ ordered. EDUT EDMS 20:44 16:59 Hospitalization Ordered by Chilango Nguyễn DO for Observation. Preliminary mw2 diagnosis is Coronavirus infection, unspecified; Hypoxia. Bed requested for Telemetry/MedSurg (observation). Status is Observation. Condition is Stable. Problem is new. Symptoms are unchanged. [facility] 21:52 20:44 06/23/2020 16:59 Hospitalization Ordered by Chilango Nguyễn DO for Observation. mw2 Preliminary diagnosis is Coronavirus infection, unspecified; Hypoxia. Bed requested for Telemetry/MedSurg (observation). Status is Observation. Condition is Stable. Problem is new. Symptoms are unchanged. mw2
[2020-06-23] MEDS ORDERED: dexAMETHasone 10 MG/ML VIAL ONE (17:43)
[2020-06-23 18:08] LABS: C-Reactive Protein 38.3 mg/L (<3.00); Ferritin 392.8 ng/mL (8-388)
[2020-06-23] MEDS ORDERED: ONDANSETRON 4 MG/2 ML VIAL IV PRN ×2 (18:46→22:47)
[2020-06-23] MEDS ORDERED: BENZONATATE 100 MG CAP PO PRN (18:46)
[2020-06-23] MEDS ORDERED: ACETAMINOPHEN 500 MG TAB PO PRN ×2 (18:46→22:46)
[2020-06-23] MEDS ORDERED: MELATONIN 5 MG TABLET PO PRN (18:46)
--- NOTE | 2020-06-23 19:00 | P.HP ---
Certification for Inpatient Patient admitted to: Observation With expected LOS: <2 Midnights Patient will require the following post-hospital care: None Practitioner: I am a practitioner with admitting privileges, knowledge of patient current condition, hospital course, and medical plan of care. Services: Services provided to patient in accordance with Admission requirements found in Title 42 Section 412.3 of the Code of Federal Regulations Patient History Date of Service: 06/23/20 Reason for admission: COVID pneumonia History of Present Illness: 59 year old female with no significant past medical history presents to the emergency department for shortness of breath. Patient previously tested positive for Harding virus 06/09/2020. Patient has had multiple rounds of outpatient treatment with oral steroids, antibiotics, breathing treatments but continues to have shortness of breath, patient was satting in the 70s to 88% on room air but is tolerating nasal cannula at 3-4 L well. CRP level 38.3, ferritin 392.8 otherwise labs unremarkable. Will admit under observation possible discharge with home oxygen tomorrow this can be arranged and she does well. Allergies No Known Allergies Allergy (Verified 03/12/12 01:19) Home Medications: Cephalexin [Keflex] 500 mg PO QID #28 capsule 03/12/12 Thyroid,Pork [Morgan Thyroid] 60 mg PO DAILY 03/12/12 - Past Medical/Surgical History Diabetic: No -: none -: Appendectomy -: Hysterectomy Psychosocial/ Personal History: Patient employed full-time, lives with her family - Family History Father -: Heart disease Mother -: Heart disease Brother -: Heart disease - Social History Smoking Status: Never smoker Alcohol use: Yes CD- Drugs: No Caffeine use: Yes Place of Residence: Home Review of Systems 10-point ROS is otherwise unremarkable General: Fever, Chills, Weakness, Malaise Respiratory: Cough, Shortness of Breath Physical Examination - Physical Exam General: Alert, In no apparent distress HEENT: Atraumatic, PERRLA, Mucous membr. moist/pink, EOMI, Sclerae nonicteric Neck: Supple, 2+ carotid pulse no bruit, No LAD, Without JVD or thyroid abnormality Respiratory: Normal air movement, Diminished (ALEX) Cardiovascular: Regular rate/rhythm, Normal S1 S2 Capillary refill: <2 Seconds Gastrointestinal: Normal bowel sounds, No tenderness Musculoskeletal: No tenderness Integumentary: No rashes Neurological: Normal speech, Normal strength at 5/5 x4 extr, Normal tone - Studies Laboratory Data (last 24 hrs) 06/23/20 15:03: PT 13.0 H, INR 1.13 06/23/20 15:03: WBC 10.60, Hgb 12.4, Hct 36.6, Plt Count 290 06/23/20 15:03: Sodium 137, Potassium 3.7, BUN 18, Creatinine 0.88, Glucose 106, Magnesium 2.3, Total Bilirubin 0.6, AST 23, ALT 46, Alkaline Phosphatase 86 Assessment and Plan - Plan Assessment COVID Pneumonia with Hypoxia Plan COVID Pneumonia with Hypoxia: Supplemental 02 as needed, IV steroids, supplements. Daily room air sats, sats for home 02. Trend crp/ferritin. Pulm consult in place, poss D/C tomorrow if she does well. Discharge Plan: Home Plan to discharge in: 24 Hours - Advance Directives Does patient have a Living Will: Yes Does patient have a Durable POA for Healthcare: Yes - Code Status/Comfort Care Code Status Assessed: Yes (FC) Critical Care: No Time Spent Managing Pts Care (In Minutes): 55
[2020-06-23] MEDS ORDERED: ASCORBIC ACID 500 MG TABLET PO SCH (21:00)
[2020-06-23] MEDS ORDERED: METHYLPREDNISOLONE 40 MG INJ IV SCH (21:00)
[2020-06-23] MEDS ORDERED: METHYLPRED NA SUC 1,000 MG in NA CHLORIDE 0.9% 100 ML IV ONE (22:47)
[2020-06-23 23:00] VITALS: BMI 37.3
[2020-06-23] MEDS ORDERED: GLUCAGON 1 MG/VIAL IM PRN (23:16)
[2020-06-23] MEDS ORDERED: D50W 25 GM/50 ML SYRINGE IV PRN (23:16)
[2020-06-23] MEDS: MELATONIN 5 MG TABLET PO PRN (23:28)
[2020-06-23] MEDS: ASCORBIC ACID 500 MG TABLET PO SCH (23:28)
[2020-06-23] MEDS: INSULIN -REGULAR HUMAN 50 UNIT/0.5 ML ML SQ SCH (23:28)
[2020-06-23] MEDS: BENZONATATE 100 MG CAP PO PRN (23:28)
[2020-06-24 01:01] LABS: Urine Appearance CLEAR; Urine Bilirubin NEGATIVE (NEG); Urine Blood NEGATIVE (NEG); Urine Color YELLOW; Urine Glucose NEGATIVE (NEG); Urine Protein TRACE (NEG); Urine Specific Gravity >=1.030 (1.005-1.030); Urine Urobilinogen 0.2 mg/dL (0.2-1.0)
[2020-06-24 02:22] LABS: Urine Bacteria <20 /HPF (<20); Urine RBC NONE SEEN /HPF (NONE SEEN); Urine Urothelial Cells <5 /HPF (NONE SEEN)
[2020-06-24 04:12] LABS: Absolute Lymphocytes (CBC) 0.9 K/uL (0.7-4.9); Basophils % 0.3 % (0-1.3); Hematocrit 38.6 % (36.0-45.0); Lymphocytes % 14.8 % (15.3-44.8); MPV 8.2 fL (7.6-11.3); RBC Red Blood Cell Count 4.32 M/uL (3.86-4.86)
[2020-06-24 04:47] LABS: C-Reactive Protein 30.7 mg/L (<3.00); Ferritin 406.6 ng/mL (8-388); Magnesium 2.8 mg/dL (1.8-2.4)
[2020-06-24 05:33] LABS: Blood Morphology Comment NOT SEEN (NOT SEEN); Platelet Estimate ADEQ
[2020-06-24] MEDS: INSULIN -REGULAR HUMAN 50 UNIT/0.5 ML ML SQ SCH ×4 (07:30→20:42)
[2020-06-24] MEDS: VITAMIN D 1000 UNIT TAB PO SCH (08:23)
[2020-06-24] MEDS: ZINC SULFATE 220 MG CAP PO SCH (08:23)
[2020-06-24] MEDS: ASPIRIN EC 81 MG TAB PO SCH (08:23)
[2020-06-24] MEDS: ASCORBIC ACID 500 MG TABLET PO SCH ×4 (08:23→20:13)
[2020-06-24] MEDS: METHYLPREDNISOLONE 125 MG INJ IV SCH ×2 (08:23→20:13)
[2020-06-24] MEDS: THIAMINE HCL 100 MG TABLET PO SCH (08:23)
[2020-06-24] MEDS: ENOXAPARIN 40 MG/0.4 ML SQ SCH (08:24)
[2020-06-24] MEDS ORDERED: ZINC SULFATE 220 MG CAP PO SCH (09:00)
[2020-06-24] MEDS ORDERED: ASPIRIN EC 81 MG TAB PO SCH (09:00)
[2020-06-24] MEDS ORDERED: ENOXAPARIN 40 MG/0.4 ML SQ SCH (09:00)
[2020-06-24] MEDS ORDERED: THIAMINE HCL 100 MG TABLET PO SCH (09:00)
[2020-06-24] MEDS ORDERED: VITAMIN D 1000 UNIT TAB PO SCH (09:00)
[2020-06-24] MEDS ORDERED: INFLUENZA VACCINE (for 3y+) 0.5 ML DOSE IMVAC ONE (11:00)
--- NOTE | 2020-06-24 14:53 | P.DS ---
Admission Date: 06/24/20 Discharge Date: 06/24/20 Primary Care Provider: Dr. Jones Disposition: ROUTINE DISCHARGE Discharge Condition: GOOD Reason for Admission: COVID pneumonia Consultations: Pulmonary-Dr. Shelton Procedures: COVID: Positive Influenza: Negative CT scan: FINDINGS: No pulmonary emboli are identified. The aorta as imaged shows no acute or suspicious finding. No pericardial thickening or effusion. Bilateral airspace consolidation and ground-glass opacification are present primarily in a peripheral distribution. There is some lung base atelectasis present along with trace bilateral pleural effusions. No pneumothorax. No pleural based mass. No mediastinal or hilar suspicious masses. No chest wall masses or abnormal axillary lymphadenopathy. IMPRESSION: No pulmonary emboli identified. Bilateral lung parenchymal opacification consistent with a moderate severity C OVID-19 pneumonia. Medical Problem List: Dyspnea secondary to bilateral COVID 19 pneumonia with hypoxia DM type 2 with hyperglycemia Obesity, BMI 37 Brief History of Present Illness: 59 year old female with no significant past medical history presents to the emergency department for shortness of breath. Patient previously tested positive for Harding virus 06/09/2020. Patient has had multiple rounds of outpatient treatment with oral steroids, antibiotics, breathing treatments but continues to have shortness of breath, patient was satting in the 70s to 88% on room air but is tolerating nasal cannula at 3-4 L well. CRP level 38.3, ferritin 392.8 otherwise labs unremarkable. Patient admitted for further evaluation and treatment. Hospital Course: Patient presented with shortness of breath secondary to bilateral COVID 19 pneumonia with hypoxia. Patient was found to be positive early June. Patient presented with hypoxia and worsening shortness of breath. Patient admitted for further evaluation and treatment. initial ferritin 390 and C reactive protein around 38. Symptoms appeared mild to moderate. CT scan did not reveal any pulmonary embolism. CT confirmed COVID 19 pneumonia. Patient received IV steroids and supplementation. Patient has improved. Patient still requires oxygen at discharge. At discharge patient without significant shortness of breath. At discharge home oxygen will be arranged. Patient currently on 3 L per nasal cannula. At discharge patient will continue prednisone 20 mg 1 pill twice daily for 7 days then 1 pill once daily for 7 days. The patient will continue with supplementation including vitamin-C 500 mg 3 times a day, vitamin- D 2000 units daily, thiamine 200 mg daily, melatonin 5 mg daily, and zinc 220 mg daily. The patient will also be provided aspirin 81 mg daily, Tessalon Perles 100 mg 3 times a day as needed for cough and Pro air 2 puffs 3 times a day as needed for shortness of breath. Recommend follow up with pulmonology in 1 week to follow up her care. Pulmonology will adjust steroid and oxygen. At discharge patient will continue with CDC guidelines on COVID 19 education including isolation. Patient will need to isolate for at least 10 days. Patient to continue with CDC guidelines on the social distancing, face mask use and hand washing. Recommend follow up with PCP in 1 week to follow up her care. Patient had hyperglycemia. Patient has diabetes mellitus type 2 but has not been taking any medication. Patient previously on metformin. At discharge will recommend to start metformin 1000 mg 1 pill twice daily for better diabetic control. Hemoglobin A1c obtained. This can be followed up as an outpatient. Recommend to monitor blood sugars at least twice daily. Recommend to maintain blood sugar less than 140 fasting and less than 200 after meals. Education on DM will be provided. Recommend to follow up with PCP to further monitor and control her diabetes. Recommend hemoglobin A1c repeat in 3 months to monitor her progress. Patient with obesity, BMI 37. Lifestyle modification education provided including diabetic education. Recommend to discontinue Adipex. Vital Signs/Physical Exam: Temp Pulse Resp BP Pulse Ox 97.9 F 70 22 H 110/61 95 06/24/20 12:00 06/24/20 12:00 06/24/20 12:00 06/24/20 12:00 06/24/20 12:00 General: Alert, In no apparent distress, Oriented x3, Cooperative HEENT: Atraumatic Neck: Supple Respiratory: Other (Good air movement bilateral. No significant distress noted. Patient on 3 L per nasal cannula.) Cardiovascular: Regular rate/rhythm Gastrointestinal: Normal bowel sounds, No tenderness, No masses, No rebound, No guarding Neurological: Normal speech, Normal strength at 5/5 x4 extr, Normal tone, Normal affect Laboratory Data at Discharge: WBC 6.20 K/uL (4.3-10.9) D 06/24/20 03:22 Hgb 12.9 g/dL (12.0-15.0) 06/24/20 03:22 Hct 38.6 % (36.0-45.0) 06/24/20 03:22 Plt Count 295 K/uL (152-406) 06/24/20 03:22 PT 13.0 SECONDS (9.5-12.5) H 06/23/20 15:03 INR 1.13 06/23/20 15:03 Sodium 141 mmol/L (136-145) 06/24/20 03:22 Potassium 4.0 mmol/L (3.5-5.1) 06/24/20 03:22 BUN 16 mg/dL (7-18) 06/24/20 03:22 Creatinine 0.73 mg/dL (0.55-1.3) 06/24/20 03:22 Glucose 184 mg/dL (74-106) H 06/24/20 03:22 Magnesium 2.8 mg/dL (1.8-2.4) H D 06/24/20 03:22 Total Bilirubin 0.6 mg/dL (0.2-1.0) 06/23/20 15:03 AST 23 U/L (15-37) 06/23/20 15:03 ALT 46 U/L (12-78) 06/23/20 15:03 Alkaline Phosphatase 86 U/L (45-117) 06/23/20 15:03 Home Medications: estradioL [Divigel] 0.25 mg TD BEDTIME 06/23/20 Albuterol Sulfate [Albuterol Sulfate Hfa] 2 puff IH TID PRN #1 06/24/20 Ascorbic Acid [Vitamin C*] 500 mg PO TID #90 tablet 06/24/20 Aspirin [Aspirin EC 81 MG] 81 mg PO DAILY #90 tablet. 06/24/20 Benzonatate [Tessalon Perle*] 100 mg PO TIDP PRN #15 cap 06/24/20 Cholecalciferol (Vitamin D3) [Vitamin D 1000 Iu Tab*] 2,000 unit PO DAILY #60 tab 06/24/20 Melatonin 5 mg PO BEDTIME #30 tablet 06/24/20 Metformin HCl [Glucophage] 1,000 mg PO BID #120 06/24/20 Thiamine HCl [Vitamin B-1*] 200 mg PO DAILY #60 tablet 06/24/20 Zinc Sulfate [Zinc Sulfate*] 220 mg PO DAILY #30 cap 06/24/20 predniSONE [Prednisone*] 20 mg PO SEECOM #21 tab 06/24/20 New Medications: Albuterol Sulfate [Albuterol Sulfate Hfa] 2 puff IH TID PRN #1 PRN Reason: Shortness Of Breath Aspirin [Aspirin EC 81 MG] 81 mg PO DAILY #90 tablet. Metformin HCl [Glucophage] 1,000 mg PO BID #120 Melatonin 5 mg PO BEDTIME #30 tablet predniSONE [Prednisone*] 20 mg PO SEECOM #21 tab Benzonatate [Tessalon Perle*] 100 mg PO TIDP PRN #15 cap PRN Reason: Cough Thiamine HCl [Vitamin B-1*] 200 mg PO DAILY #60 tablet Ascorbic Acid [Vitamin C*] 500 mg PO TID #90 tablet Cholecalciferol (Vitamin D3) [Vitamin D 1000 Iu Tab*] 2,000 unit PO DAILY #60 tab Zinc Sulfate [Zinc Sulfate*] 220 mg PO DAILY #30 cap Physician Discharge Instructions: Follow up with PCP in 1 week to follow up this hospitalization. Patient presented with shortness of breath secondary to bilateral COVID 19 pneumonia with hypoxia. Patient was found to be positive early June. Patient presented with hypoxia and worsening shortness of breath. Patient admitted for further evaluation and treatment. initial ferritin 390 and C reactive protein around 38. Symptoms appeared mild to moderate. CT scan did not reveal any pulmonary embolism. CT confirmed COVID 19 pneumonia. Patient received IV steroids and supplementation. Patient has improved. Patient still requires oxygen at discharge. At discharge patient without significant shortness of breath. At discharge home oxygen will be arranged. Patient currently on 3 L per nasal cannula. At discharge patient will continue prednisone 20 mg 1 pill twice daily for 7 days then 1 pill once daily for 7 days. The patient will continue with supplementation including vitamin-C 500 mg 3 times a day, vitamin- D 2000 units daily, thiamine 200 mg daily, melatonin 5 mg daily, and zinc 220 mg daily. The patient will also be provided aspirin 81 mg daily, Tessalon Perles 100 mg 3 times a day as needed for cough and Pro air 2 puffs 3 times a day as needed for shortness of breath. Recommend follow up with pulmonology in 1 week to follow up her care. Pulmonology will adjust steroid and oxygen. At discharge patient will continue with CDC guidelines on COVID 19 education including isolation. Patient will need to isolate for at least 10 days. Patient to continue with CDC guidelines on the social distancing, face mask use and hand washing. Recommend follow up with PCP in 1 week to follow up her care. Patient had hyperglycemia. Patient has diabetes mellitus type 2 but has not been taking any medication. Patient previously on metformin. At discharge will recommend to start metformin 1000 mg 1 pill twice daily for better diabetic control. Hemoglobin A1c obtained. This can be followed up as an outpatient. R ecommend to monitor blood sugars at least twice daily. Recommend to maintain blood sugar less than 140 fasting and less than 200 after meals. Education on DM will be provided. Recommend to follow up with PCP to further monitor and control her diabetes. Recommend hemoglobin A1c repeat in 3 months to monitor her progress. Patient with obesity, BMI 37. Lifestyle modification education provided in cluding diabetic education. Recommend to discontinue Adipex. Diet: ADA Activity: Ad thelma Followup: NONE,NONE [Primary Care Provider] - Time spent managing pt's care (in minutes): 55
[2020-06-24] MEDS: BENZONATATE 100 MG CAP PO PRN (16:52)
[2020-06-24] MEDS: METFORMIN HCL 500 MG TAB PO SCH (16:52)
[2020-06-24] MEDS: MELATONIN 5 MG TABLET PO PRN (20:13)
[2020-06-25] MEDS: BENZONATATE 100 MG CAP PO PRN (00:27)
[2020-06-25 04:44] LABS: Basophils % 0.1 % (0-1.3); Hematocrit 38.1 % (36.0-45.0); Lymphocytes % 7.1 % (15.3-44.8); MPV 8.9 fL (7.6-11.3); RBC Red Blood Cell Count 4.27 M/uL (3.86-4.86)
[2020-06-25 04:58] LABS: BUN Blood Urea Nitrogen 19 mg/dL (7-18); Bicarbonate 31 mmol/L (21-32); Ferritin 353.8 ng/mL (8-388); Glucose Level 169 mg/dL (74-106); Magnesium 2.4 mg/dL (1.8-2.4); Potassium 4.1 mmol/L (3.5-5.1); Sodium Level 142 mmol/L (136-145)
[2020-06-25 05:04] VITALS: BP 111/60; TEMP 96.7
[2020-06-25] MEDS: METFORMIN HCL 500 MG TAB PO SCH ×2 (08:00→08:43)
[2020-06-25] MEDS: ASPIRIN EC 81 MG TAB PO SCH (08:42)
[2020-06-25] MEDS: ZINC SULFATE 220 MG CAP PO SCH (08:42)
[2020-06-25] MEDS: METHYLPREDNISOLONE 125 MG INJ IV SCH (08:43)
[2020-06-25] MEDS: ASCORBIC ACID 500 MG TABLET PO SCH (08:43)
[2020-06-25] MEDS: THIAMINE HCL 100 MG TABLET PO SCH (08:43)
[2020-06-25] MEDS: VITAMIN D 1000 UNIT TAB PO SCH (08:43)
[2020-06-25] MEDS: ENOXAPARIN 40 MG/0.4 ML SQ SCH (08:44)
[2020-06-25] MEDS: INSULIN -REGULAR HUMAN 50 UNIT/0.5 ML ML SQ SCH (08:47)
--- NOTE | 2020-06-25 09:00 | P.DS ---
Admission Date: 06/24/20 Discharge Date: 06/25/20 Primary Care Provider: Dr. Jones Disposition: ROUTINE DISCHARGE Discharge Condition: GOOD Reason for Admission: COVID pneumonia Consultations: Pulmonary-Dr. Shelton Procedures: COVID: Positive Influenza: Negative CT scan: FINDINGS: No pulmonary emboli are identified. The aorta as imaged shows no acute or suspicious finding. No pericardial thickening or effusion. Bilateral airspace consolidation and ground-glass opacification are present primarily in a peripheral distribution. There is some lung base atelectasis present along with trace bilateral pleural effusions. No pneumothorax. No pleural based mass. No mediastinal or hilar suspicious masses. No chest wall masses or abnormal axillary lymphadenopathy. IMPRESSION: No pulmonary emboli identified. Bilateral lung parenchymal opacification consistent with a moderate severity C OVID-19 pneumonia. Medical Problem List: Dyspnea secondary to bilateral COVID 19 pneumonia with hypoxia DM type 2 with hyperglycemia Obesity, BMI 37 Brief History of Present Illness: 59 year old female with no significant past medical history presents to the emergency department for shortness of breath. Patient previously tested positive for [place] virus 06/09/2020. Patient has had multiple rounds of outpatient treatment with oral steroids, antibiotics, breathing treatments but continues to have shortness of breath, patient was satting in the 70s to 88% on room air but is tolerating nasal cannula at 3-4 L well. CRP level 38.3, ferritin 392.8 otherwise labs unremarkable. Patient admitted for further evaluation and treatment. Hospital Course: Patient presented with shortness of breath secondary to bilateral COVID 19 pneumonia with hypoxia. Patient was found to be positive early June. Patient presented with hypoxia and worsening shortness of breath. Patient admitted for further evaluation and treatment. initial ferritin 390 and C reactive protein around 38. Symptoms appeared mild to moderate. CT scan did not reveal any pulmonary embolism. CT confirmed COVID 19 pneumonia. Patient received IV steroids and supplementation. Patient has improved. Patient still requires oxygen at discharge. At discharge patient without significant shortness of breath. Patient currently on 3 L per nasal cannula. Discharge was delayed due to lack of oxygen set up. Oxygen now arranged. At discharge patient will continue prednisone 20 mg 1 pill twice daily for 7 days then 1 pill once daily for 7 days. The patient will continue with supplementation including vitamin-C 500 mg 3 times a day, vitamin-D 2000 units daily, thiamine 200 mg daily, melatonin 10 mg daily, and zinc 220 mg daily. The patient will also be provided aspirin 81 mg daily, Tessalon Perles 100 mg 3 times a day as needed for cough and Pro air 2 puffs 3 times a day as needed for shortness of breath. Recommend follow up with pulmonology in 1 week to follow up her care. Pulmonology will adjust steroid and oxygen. At discharge patient will continue with CDC guidelines on COVID 19 education including isolation. Patient will need to isolate for at least 10 days. Patient to continue with CDC guidelines on the social distancing, face mask use and hand washing. Recommend follow up with PCP in 1 week to follow up her care. Patient had hyperglycemia. Patient has diabetes mellitus type 2 but has not been taking any medication. Patient previously on metformin. At discharge will recommend to start metformin 1000 mg 1 pill twice daily for better diabetic control. Hemoglobin A1c obtained. This can be followed up as an outpatient. Recommend to monitor blood sugars at least twice daily. Recommend to maintain blood sugar less than 140 fasting and less than 200 after meals. Education on DM will be provided. Recommend to follow up with PCP to further monitor and control her diabetes. Recommend hemoglobin A1c repeat in 3 months to monitor her progress. Patient with obesity, BMI 37. Lifestyle modification education provided including diabetic education. Recommend to discontinue Adipex. Vital Signs/Physical Exam: Temp Pulse Resp BP Pulse Ox 96.7 F L 53 20 111/60 95 06/25/20 04:00 06/25/20 04:00 06/25/20 04:00 06/25/20 04:00 06/25/20 04:00 General: Alert, In no apparent distress, Oriented x3, Cooperative HEENT: Normocephalic Neck: Supple Respiratory: Other (No significant distress noted. Currently on 3 L per nasal cannula) Cardiovascular: Regular rate/rhythm Gastrointestinal: No guarding Neurological: Normal speech, Normal strength at 5/5 x4 extr, Normal tone, Normal affect Laboratory Data at Discharge: WBC 14.10 K/uL (4.3-10.9) H D 06/25/20 03:54 Hgb 12.3 g/dL (12.0-15.0) 06/25/20 03:54 Hct 38.1 % (36.0-45.0) 06/25/20 03:54 Plt Count 338 K/uL (152-406) 06/25/20 03:54 PT 13.0 SECONDS (9.5-12.5) H 06/23/20 15:03 INR 1.13 06/23/20 15:03 Sodium 142 mmol/L (136-145) 06/25/20 03:54 Potassium 4.1 mmol/L (3.5-5.1) 06/25/20 03:54 BUN 19 mg/dL (7-18) H 06/25/20 03:54 Creatinine 0.60 mg/dL (0.55-1.3) 06/25/20 03:54 Glucose 169 mg/dL (74-106) H 06/25/20 03:54 Magnesium 2.4 mg/dL (1.8-2.4) 06/25/20 03:54 Total Bilirubin 0.6 mg/dL (0.2-1.0) 06/23/20 15:03 AST 23 U/L (15-37) 06/23/20 15:03 ALT 46 U/L (12-78) 06/23/20 15:03 Alkaline Phosphatase 86 U/L (45-117) 06/23/20 15:03 Home Medications: estradioL [Divigel] 0.25 mg TD BEDTIME 06/23/20 Albuterol Sulfate [Albuterol Sulfate Hfa] 2 puff IH TID PRN #1 06/24/20 Ascorbic Acid [Vitamin C*] 500 mg PO TID #90 tablet 06/24/20 Aspirin [Aspirin EC 81 MG] 81 mg PO DAILY #90 tablet. 06/24/20 Benzonatate [Tessalon Perle*] 100 mg PO TIDP PRN #15 cap 06/24/20 Cholecalciferol (Vitamin D3) [Vitamin D 1000 Iu Tab*] 2,000 unit PO DAILY #60 tab 06/24/20 Metformin HCl [Glucophage] 1,000 mg PO BID #120 06/24/20 Thiamine HCl [Vitamin B-1*] 200 mg PO DAILY #60 tablet 06/24/20 Zinc Sulfate [Zinc Sulfate*] 220 mg PO DAILY #30 cap 06/24/20 predniSONE [Prednisone*] 20 mg PO SEECOM #21 tab 06/24/20 Melatonin 10 mg PO BEDTIME #30 capsule 06/25/20 New Medications: Albuterol Sulfate [Albuterol Sulfate Hfa] 2 puff IH TID PRN #1 PRN Reason: Shortness Of Breath Aspirin [Aspirin EC 81 MG] 81 mg PO DAILY #90 tablet. Metformin HCl [Glucophage] 1,000 mg PO BID #120 Melatonin 10 mg PO BEDTIME #30 capsule predniSONE [Prednisone*] 20 mg PO SEECOM #21 tab Benzonatate [Tessalon Perle*] 100 mg PO TIDP PRN #15 cap PRN Reason: Cough Thiamine HCl [Vitamin B-1*] 200 mg PO DAILY #60 tablet Ascorbic Acid [Vitamin C*] 500 mg PO TID #90 tablet Cholecalciferol (Vitamin D3) [Vitamin D 1000 Iu Tab*] 2,000 unit PO DAILY #60 tab Zinc Sulfate [Zinc Sulfate*] 220 mg PO DAILY #30 cap Physician Discharge Instructions: Follow up with PCP in 1 week to follow up this hospitalization. Patient presented with shortness of breath secondary to bilateral COVID 19 pneumonia with hypoxia. Patient was found to be positive early June. Patient presented with hypoxia and worsening shortness of breath. Patient admitted for further evaluation and treatment. initial ferritin 390 and C reactive protein around 38. Symptoms appeared mild to moderate. CT scan did not reveal any pulmonary embolism. CT confirmed COVID 19 pneumonia. Patient received IV steroids and supplementation. Patient has improved. Patient still requires oxygen at discharge. At discharge patient without significant shortness of breath. Patient currently on 3 L per nasal cannula. Discharge was delayed due to lack of oxygen set up. Oxygen now arranged. At discharge patient will continue prednisone 20 mg 1 pill twice daily for 7 days then 1 pill once daily for 7 days. The patient will continue with supplementation including vitamin-C 500 mg 3 times a day, vitamin-D 2000 units daily, thiamine 200 mg daily, melatonin 10 mg daily, and zinc 220 mg daily. The patient will also be provided aspirin 81 mg daily, Tessalon Perles 100 mg 3 times a day as needed for cough and Pro air 2 puffs 3 times a day as needed for shortness of breath. Recommend follow up with pulmonology in 1 week to follow up her care. Pulmonology will adjust steroid and oxygen. At discharge patient will continue with CDC guidelines on COVID 19 education including isolation. Patient will need to isolate for at least 10 days. Patient to continue with CDC guidelines on the social distancing, face mask use and hand washing. Recommend follow up with PCP in 1 week to follow up her care. Patient had hyperglycemia. Patient has diabetes mellitus type 2 but has not been taking any medication. Patient previously on metformin. At discharge will recommend to start metformin 1000 mg 1 pill twice daily for better diabetic control. Hemoglobin A1c obtained. This can be followed up as an outpatient. Recommend to monitor blood sugars at least twice daily. Recommend to maintain blood sugar less than 140 fasting and less than 200 after meals. Education on DM will be provided. Recommend to follow up with PCP to further monitor and control her diabetes. Recommend hemoglobin A1c repeat in 3 months to monitor her progress. Patient with obesity, BMI 37. Lifestyle modification education provided including diabetic education. Recommend to discontinue Adipex. Diet: ADA Activity: Ad thelma Followup: NONE,NONE [Primary Care Provider] - Time spent managing pt's care (in minutes): 55
[2020-06-25 11:09] VITALS: O2SAT 99
== END 2020-06-25 10:11 | disposition home or self-care (01) | DRG 177 ==
LOC: ER 13:29 → ERHOLD 19:54 → 4TH 21:02 → OBSVTOIN 06-24 09:01
PROVIDERS: ADMIT Family Medicine; ATTEND Family Medicine
DX: U07.1 COVID-19 (principal); J12.82 Pneumonia due to coronavirus disease 2019; E11.65 Type 2 diabetes mellitus with hyperglycemia; E66.9 Obesity, unspecified; Z68.37 Body mass index [BMI] 37.0-37.9, adult; R09.02 Hypoxemia; Z90.49 Acquired absence of other specified parts of digestive tract; Z79.899 Other long term (current) drug therapy; Z90.710 Acquired absence of both cervix and uterus; Z79.84 Long term (current) use of oral hypoglycemic drugs; Z79.82 Long term (current) use of aspirin; Z79.52 Long term (current) use of systemic steroids
CPT/HCPCS: 0240U; 36415; 71045; 71275; 80048; 80076; 81001; 82728; 82947; 83036; 83735; 83880; 84484; 85025; 85610; 86140; 96361; 96374; 99284; G0378; J1100; J1650; J2930; J7030; Q9967

== ENCOUNTER → 2020-08-02 | Day surgery (SDC) | payer BC ==
--- NOTE | 2020-07-28 09:29 | RAD REPORT ---
EXAM DESCRIPTION: Gerber Cristobal (2 Views)07/28/2020 9:21 am CLINICAL HISTORY: Preop for catheter insertion COMPARISON: June 2020 FINDINGS: The lungs appear clear of acute infiltrate. The heart is normal size IMPRESSION: No acute abnormalities displayed
[2020-07-28 10:53] LABS: Absolute Lymphocytes (CBC) 2.3 K/uL (0.7-4.9); Basophils % 0.9 % (0-1.3); Hematocrit 39.9 % (36.0-45.0); Lymphocytes % 27.4 % (15.3-44.8); MPV 8.7 fL (7.6-11.3); RBC Red Blood Cell Count 4.36 M/uL (3.86-4.86)
[2020-07-28 10:56] LABS: Protime INR 0.94
--- NOTE | 2020-07-29 07:21 | EKG ---
Test Date: 2020-07-28 Test Time: 08:00:40 Porter Head: ALISA MEASUREMENT RESULTS: Intervals: Rate: 60 SC: 166 QRSD: 76 QT: 400 QTc: 400 [place]: P: 36 SC: 166 QRS: 7 T: 41 INTERPRETIVE STATEMENTS: Normal sinus rhythm Normal ECG Compared to ECG 06/23/2020 15:16:51 T-wave abnormality no longer present Possible ischemia no longer present Electronically Signed On 07-29-20 07:18:21 CDT by Bonifacio Espinal
== END ==
LOC: CCL 09:11
DX: I20.0 Unstable angina (principal); Z53.8 Procedure and treatment not carried out for other reasons; Q22.5 Ebstein's anomaly
CPT/HCPCS: 36415; 71046; 80048; 85025; 85610; 85730; 93005

== ENCOUNTER 2020-10-07 22:35 | Emergency (ER) | payer BC ==
--- OUTSIDE RECORDS SUMMARY | 2020-10-07 22:39 | XMS REPORT | Continuity of Care Document ---
:1960 Author Organization [facility] t Address [address] [place] [address] Care Team Providers Name Role Phone Tyler Blake MD, Gilliane Primary Care Physician [phone] Agustín MONK, R. Attending Clinician KATIE Attending Clinician Unavailable Doctor Unassigned, Name Attending Clinician Unavailable Buffy MONK, L Attending Clinician Rob KATZ Attending Clinician Unavailable Agustín MONK, B. Attending Clinician Antonio BEE Attending Clinician Unavailable Payers Payer Name Policy Type Policy Effective Date Expiration Date [facility] Number [id number] CHOICE [id number] 2017 [place] PPO/FEDERAL 00:00:00 [facility] EMPL [id number] 2017-Madan tPPO Problems Condition Condition Condition Status Onset Resolution Last Treating Co mments Source Name Details Category Date Date Treatment Clinician Date CAD in CAD in Disease Active [place] 4-20 Methodi artery artery 00:00: st 00 Family Family Disease Active [place] history of history of 4-20 Me [facility] cardiovasc cardiovasc 00:00: st ular ular 00 disease disease SOB SOB Disease Active [place] (shortness (shortness 2-24 Me thodi of breath) of breath) 00:00: st 00 Allergies, Adverse Reactions, Alerts Allergy Allergy Status Severity Reaction(s) Onset Inactive Treating Comm ents Source Name Type Date Date Clinician No Known DA Active U 2016-05 [facility] [place] Family History Family Member Diagnosis Comments Start Date Stop Date Source Natural brother Prostate cancer [place] [facility] Natural father Lung cancer [facility] ethodist Natural mother Alzheimer's disease [place] [facility] Family member Colon cancer [facility] ethodi Family member Colon polyps [facility] ethodi Social History Social Habit Start Date Stop Date Quantity Comments Source Exposure to Not sure [place] Metho dist SARS-CoV-2 (event) Tobacco use and 2020-08-30 2020-08-30 Never used [facility] ethodist exposure 00:00:00 00:00:00 Alcohol intake 2020-08-30 2020-08-30 Current drinker Sahil on [facility] 00:00:00 00:00:00 of alcohol (finding) Alcohol Comment 2017-12-26 2017-12-26 socially [facility] ethodist 00:00:00 00:00:00 Sex Ass[birth year] [facility] emmettodist 00:00:00 00:00:00 Smoking Status Start Date Stop Date Source Former smoker 2020-08-30 00:00:00 2020-08-30 00:00:00 [place] [facility] Medications Ordered Filled Start Stop Current Ordering Indication Dosage Frequency Signature Comments Components Source Medication Medication Date Date Medication? Clinician (SIG) Name Name clotrimazol 2021- Yes Q.5D Apply Jayce barakat e-betametha 09-06 05-03 topically [place] sone 00:00: 23:59 2 (two) st (LOTRISONE) 00 :00 times a 1-0.05 % day. Thin cream film estradioL 2021- Yes 1{spray QD Place 1 [place] (Evamist) 09-06 05-03 } spray on Metho di 1.53 00:00: 23:[address] mg/spray 00 :00 daily. (1.7%) transdermal spray estradioL 2020- No 1{spray QD Place 1 [place] (Evamist) 503 05-03 } spray on Metho di 1.53 00:00: 00:[address] mg/spray 00 :00 daily. (1.7%) transdermal spray DivigeL Yes 1{appli QD PLACE 1 [place] 0.25 5-02 cation} APPLICATIO Method i mg/0.25 00:00: N ON THE st gram (0.1 00 SKIN %) gel in DAILY. packet amb custom Yes Testostero [place] compound 4-29 ne 2mg/ml Method i 00:00: in st 00 Lipoderm base Apply 1ml to back of calf or inner forearm once/dayWa sh hands thoroughly after applicatio n estradioL 2021- Yes 1{spray QD Place 1 [place] (Evamist) 09-02 } spray on Metho di 1.53 00:00: 23:[address] mg/spray 00 :00 daily. (1.7%) transdermal spray clotrimazol 2021- Yes Q.5D Apply [place] e-betametha 09-02 topically Me [place] sone 00:00: 23:59 2 (two) st (LOTRISONE) 00 :00 times a 1-0.05 % day. Thin cream film amb [employer] Yes Testostero [place] compound 4-26 ne 2mg/ml Method i 00:00: in st 00 Lipoderm base Apply 1ml to back of calf per day cholecalcif Yes 21405G QD Take [place] naina, 4-20 50,000 Methodi vitamin D3, 13:21: Units by st 1,250 mcg 30 mouth (50,000 daily. unit) capsule levocetiriz 2020- No 5mg QD Take 1 Paxton ston ine (Xyzal) 07-1914 tablet (5 Me th[place] 5 MG tablet 00:00: 23:59 mg total) st 00 :00 by mouth every evening for 30 days. azelastine 2020- No 1{spray Q.5D 1 spray Castañeda (ASTELIN) 07-16 } into each Meth jakub 137 mcg 00:00: 23:[address] (0.1 %) 00 :00 (two) nasal spray times a day for 30 days. Use in each nostril as directed levocetiriz No 5mg QD Take 1 Paxton farfan ine (Xyzal) 07-16-15 tablet (5 Me th[place] 5 MG tablet 00:00: 00:00 mg total) st 00 :00 by mouth every evening for 30 days. fluconazole No 200mg Q3D Take 1 Marciano goncalves (Diflucan) 07-0812 tablet Method i 200 MG 00:00: 00:00 ([address] tablet 00 :00 total) by mouth every 3 (three) days for 3 doses. fluconazole 2019-05 No 200mg Take 1 Marciano goncalves (Diflucan) 06-13 tablet Method i 200 MG 00:00: 23:59 ([address] tablet 00 :00 total) by mouth once for 1 dose. estradioL No 1{appli QD Place [facility] 08-06 cation} applicatio Methodi 0.25 00:00: 00:[address] mg/0.25 00 :00 skin gram (0.1 daily. %) gel in packet betamethaso Apply a Marciano goncalves ne, 08-06 small pea Methodi augmented, 00:00: 00:[address] (Diprolene) 00 :00 amount 2 0.05 % times ointment daily for the next 4-6 weeks nitrofurant No 100mg Take 1 Marciano goncalves oin, 08-06 capsule Methodi macrocrysta 00:00: 23:59 ([address] l-monohydra 00 :00 total) by te, mouth as (Macrobid) needed 100 MG (intercour capsule se) for up to 90 days. ergocalcife [place] 37266U Q7D Take Paxton melendezskyler rol 06-13 50,000 Methodi (VITAMIN 00:00: 00:[address] D2) 50,000 00 :00 mouth once unit a week. capsule Vital Signs Vital Name Observation Time Observation Value Comments Source Diastolic blood 2020-09-13 11:07:00 83 mm[Hg] [place] on [facility] pressure Heart rate 2020-09-13 11:07:00 65 /min Garry Segundo Systolic blood 2020-09-13 11:07:00 139 mm[Hg] Jayceto n [facility] pressure Respiratory rate 2020-09-13 10:48:00 20 /min [place]ce [place] [facility] Oxygen saturation in 2020-09-13 10:48:00 98 /min Grary Segundo Arterial blood by Pulse oximetry Body height 2020-08-30 14:00:00 165.1 cm Garry Segundo Body weight 2020-08-24 13:16:00 97.523 kg Garry Segundo BMI 2020-08-24 13:16:00 35.78 kg/m2 Garry Segundo Body temperature 2020-07-16 11:23:00 37.06 Ale Jayce Segundo Procedures Procedure Date / Time Performed Performing Clinician [facility] e CT CARDIAC OVERREAD 2020-09-13 11:18:52 Shyam Randolph CV CTA CORONARY ARTERIES 2020-09-13 11:14:54 Shyam Randolph W CONTRAST POC CREATININE 2020-09-13 10:34:00 Shyam Randolph ESTIMATED GFR 2020-09-13 10:34:00 Shyam Randolph TTE COMPLETE, W CONTRAST, 2020-09-13 10:14:12 Shyam Randolph W DOPPLER ([id number]) BONE DENSITY 2020-09-10 14:58:08 Jaz Bean odist TESTOSTERONE FREE 2020-08-30 14:51:00 Jaz Bean Me thodist TESTOSTERONE 2020-08-30 14:51:00 Jaz Bean THINPREP TIS PAP AND HPV 2020-08-30 14:49:00 Jaz Bean [facility] MRNA E6/E7 REFLEX HPV 16,18/45 ECG 12-LEAD 2020-08-24 13:25:08 Shyam Randolph XR CHEST 2 VW 2020-06-30 09:52:06 Mansoor Randolph Me thodist Plan of Care Planned Activity Planned Date Details Comments Source Future Scheduled 2023-08-31 Screening for [place] Me [facility]odist Test 00:00:00 malignant neoplasm of cervix (procedure) [code = 790569319] Future Scheduled 2023-08-22 COLONOSCOPY SCREENING [place] [facility] Test 00:00:00 [code = COLONOSCOPY SCREENING] Future Scheduled 2022-08-30 BREAST CANCER [place] Me thodist Test 00:00:00 SCREENING [code = BREAST CANCER SCREENING] Future Scheduled 2020-12-05 INFLUENZA VACCINE [place] [facility] Test 00:00:00 [code = INFLUENZA VACCINE] Future Scheduled 2010 SHINGLES VACCINES [place] [facility] Test 00:00:00 (#1) [code = SHINGLES VACCINES (#1)] Future Scheduled 1978 Hepatitis C screening [place] [facility] Test 00:00:00 (procedure) [code = 286016817] Future Scheduled 1972 COVID-19 VACCINE (1) Paxton ston [facility] Test 00:00:00 [code = COVID-19 VACCINE (1)] Encounters Start End Encounter Admission Attending Care Care Encounter Source Date/Time Date/Time Type Type Clinicians Facility Department ID 2020-09-13 2020-09-13 [facility] [id number] [place] 00:00:00 00:00:00 SHYAM 949 Method i 2020-09-13 2020-09-13 [facility] [id number] [place] 00:00:00 00:00:00 SHYAM [address] 2020-09-13 2020-09-13 Outpatient [facility] [id number] [place] 00:00:00 00:00:00 SHYAM [address] 2020-09-10 2020-09-10 Outpatient [facility]AZ [facility] [id number] [place] 00:00:00 00:00:[address] 2020-08-30 2020-08-30 Outpatient JAZ [facility] [id number] [place] 00:00:00 00:00:[address] 2020-08-242020-08-24 Outpatient [facility] [id number] [place] 00:00:00 00:00:00 SHYAM 054 Method i 2020-08-02 2020-08-02 Orders Doctor LEONARD [id number] 00:00:00 00:00:00 Only Unassigned, ESTELITA [id number] Leroy [facility] 4.2.7.2.686 [id number] 2020-07-30 2020-07-30 [facility] [id number] 00:00:00 00:00:00 Claude Martell [id number] Surgical 4.2.7.2.686 Specialti [id number] es [address] [place] 2020-07-30 2020-07-30 Orders Doctor LEONARD [id number] 00:00:00 00:00:00 Only Unassigned, ESTELITA 350.1.13.10 Leroy [facility] 4.2.7.2.686 [id number] 2020-07-28 2020-07-28 [facility] [id number] 12:33:50 23:59:00 Encounter Claude Larsen [id number] [place] 4.2.7.2.686 [place] [id number] 2020-07-28 2020-07-28 [facility] [id number] 12:57:02 13:24:01 Visit Claude Feliciano Jayshree 350.1.13.10 Surgical 4.2.7.2.686 Specialti [id number] es 198 [place] 2020-07-16 2020-07-16 Outpatient [facility] [id number] [place] 00:00:00 00:00:00 MANSOOR [address] 2020-06-30 2020-06-30 Outpatient [facility] [id number] [place] 00:00:00 00:00:00 MANSOOR 777 Metho di 2020-06-30 2020-06-30 Outpatient [facility] [id number] [place] 00:00:00 00:00:00 MANSOOR [address] 2019-08-07 2019-08-07 Outpatient JAZ [facility] [id number] [place] 00:00:00 00:00:[address] 2019-04-16 2019-04-16 Emergency E MHBL MHBL [id number] [facility]BL 12:52:00 12:52:00 2018-10-17 2018-10-17 Outpatient E MHBL NHUNG [id number] [facility]BL 11:57:00 11:57:00 Results Test Description Test Time Test Results Result Source Comments Comments CT Cardiac Overread 2020-09-04 Interface, [place] [address]i [address] 11:54:43 Incoming - 09/13/2020 11:57 AM CDT EXAMINATION : CT CARDIAC OVERREADCLINICAL HISTORY: Radiology overread of imaging performed in the cardiology department. Only extracardiac structures are assessed. Z82.49 Family history of ischemic heart disease and other diseases of the circulatory system, I25.10 Atherosclerotic heart disease of [place] coronary artery without angina pectoris, cad TECHNIQUE: Please refer to cardiology note for details on the acquisition technique.COMPARISON : None.FINDINGS:Few bubbles of gas within the superior vena cava, right atrium, right ventricle and main pulmonary artery, likely sequela of injection technique.Extracardi ac findings:Lungs and airways: No acute airspace disease or suspicious pulmonary nodules in the partially visualized lungs. Pleura: No pleural effusion or pneumothorax.Mediast inum and lymph nodes: No lymphadenopathy. Upper abdomen: No suspicious abnormalities.Muscul oskeletal: No suspicious osseous lesions.IMPRESSION:1 .No evidence of acute extracardiac/extrava scular pathology in the partially visualized chest.Please refer to separately dictated cardiology report for cardiac and vascular findings. Transthoracic 2020-09-04 Interface, Radiology [place] Echocardiogram 0 Results In - Methodis t Complete, (w 11:38:00 09/13/2020 11:39 AM Contrast, Strain CDTFormatting of and 3D if needed) this note might be different from the original. Echocardiography Report [address] [address], [place] [address] Pat.Name: JOSSELIN GRIDER Pat.ID: [id number] .Date: 09/13/2020 Refer.MD: SHYAM RANDOLPH MD Exam Time: 9:10:00 AM Study Type:Routine Echo Height: 64in Weight: 215lb BSA: 2.02 m2 Age: 8 1960,59Y Sex: FEMALE BP: 130/66 HR: 62 bpm Sonogrphr: Nelida Witt RDCS, RVSPat. Stat.:Outpatient Study Status:Final Echo Event ID:[id number] Order ID: [id number] Reason for Study:CAD Procedures: 2D Echo, Colorflow Doppler, Intravenous Definity ContrastRace: C SUM CHIQUIS: -LV size is normal. LV EF is normal. Apical regional wall motionabnormalities present.RV systolic function is normal.No hemodynamically significant valvular abnormalities. Estimated PA systolic pressure is 27 mmHg, assuming a mean RAP of 5mmHg. --FINDINGS:--------- -------LV: LV size is normal. LV EF is normal. Estimated EF is 60-64%. Regional wall motion abnormalities present.RV: RV size is normal. RV systolic function is normal.LA: LA size is normal.RA: RA size is normal.AO: Aortic root diameter is normal.LISBETH: No pericardial effusion.AV: No structural AV abnormalities noted.MV: No structural MV abnormalities noted.PV: No structural PV abnormalities noted.TV: No structural TV abnormalities noted. A trace of tricuspid regurgitation Hernandez: LV filling pressure is normal.Other: Estimated PA systolic pressure is 27 mmHg, assuming a mean RAP of 5 mmHg. -MEASUREMENTS:------ 2DParasternal Long [place] Ao An 2.1 cm LVPWd 0.62 cm Ao Rtd 2.7 cm Index 1.3 cm/m2 LA Ds 3.6 cm IVSd 0.93 cm RWT 0.28 LVIDd 4.4 cm Index 2.2 cm/m2 LV Mass 105 g (87-129) LVIDs 2.7 cm LVM Index 52 g/m2 LV%fs 38 % LVOT 2.2 cm LA Sng Plane LA Area 16 cm2 (8.8-23.4) LA Vol 44 ml Index 22 ml/m2 LA LngAx 4.9 cm Ascending aorta Asce Dim 3.3 cm LVOT LVOT Area 3.8 cm2 DOPPLERLVOT Stroke Vol & Cardiac Out LVOT TVI 20 cm HR 58 bpm LVOT LVOT SV 76 ml LVOT CO 4.4 l/min SVi 38 ml/m2 LVOT CI 2.2 l/m/m2TV Pressure Gradient TV PkVel 234 cm/s TV PG 22 mmHg WALL MOTION: ---RESTING WALL MOTION:Apical Septal, Apical gould are hypokinetic. Normal wall motion inall other gould.Wall Index = 1.1Signed 09/13/2020 11:38 Shantell Byrd MD Testosterone 2020-09-04 19:56:00 Test Item Value Reference Range Interpretation Comme nts Testosterone, <1 2-45 L Verified by re peat analysis. For additional information, please total, refer to lc/ms/ms (test http://education.L8 SmartLight/faq/TotalTestosteroneLCMSMS code = 2986-8) (This link is being provided for informational/educational purposes only.) This test was developed and its analytical performance katina racteristics have been determined by [employer]. It has not been cleared or approved by theFDA. This assay has been validated pursuant to the CLIA regulations and is used for clinic al purposes. RAC (test code Per = RAC) for min g Org ani zat ion Inf orm ati on: Sit e ID: ANTONIA Allen e: Que st Deena gno sti cs- [facility]man hol s [place] [facility] [facility] Add res s: [address] [place], [place] [address] [phone] 6 Di rec tor : Lucian Coppola Lab Abn Interpretation orm (test code = al 558[address]-2) Garry MethodistTestosterone [id number] 19:56:00 Test Item Value Reference Range Interpretation Comments Testosterone Please see comment 0.2-5.0 Result no t calculated , free (test because one or code = morerequired va lues 2991-8) exceed analytic al limits. This te st was developed and i ts analytical perf ormance characteristics have been determined by [employer]. It has not been cl eared or approved by theA. This assay has been validated pursu ant to the CLIA regula tions and is used for clinical purpos es. RAC (test Performing code = RAC) Organization Information: Site ID: [facility] Name: [facility] Address: [address] [place] [address] Director: Phoenix RashidistTHINPREP TIS PAP AND HPV mRNA E6/E7 REFLEX HPV 16,18/45 2020-09-01 17:15:00 Test Item Value Reference Interpretation Comments Range Clinical information None gi ailyn (test code = 48718-1) Date of last NONE GIVEN menstrual period (test code = 8665-2) Prev. pap: (test code NONE G IVEN = 72511-1) Prev. bx: (test code NONE GI AILYN = 66837-7) Source (test code = None giv en ) Statement of adequacy Satisf actory for (test code = ) evalua tion.Endocervi marvin/transformat ion zone componentpresen t. Interpretation/result Negati ve for : (test code = intraepitheli al 19526-7) lesion or malignancy. Comment (test code = This Pa p test has ) been evaluated with computerassiste d technology. [employer] [place]EDAW, CT(ASC P)CT (test code = 93343-7) screen ing location: [address] ing, [id number] Comment (test code = MALIA KINSEY NOTE: 9646669) The Pap is a screening test for cervical cancer . It is not a diagno stic test and is sub ject to false negati ve and false posit susana results. It is most reliable when a satisfactory sa mple, regularly obtai selvin, is submitted wi relevant clinic al findings and history, and wh en the Pap result is evaluated along with historic and cu rrent clinical information. HPV mRNA e6/e7 (test Not Detected Not Detected Methodo logy: code = 61641-6) Transcriptio n-Mediat ed Amplificatio n This assay dete cts E6/E7 viral messenger RNA ( mRNA) from 14high-ris k HPV types (16,18,31,33,35 ,39,4 5,51,52,56,58,5 9,66, 68). The oma tical performance characteristics of thisassay have been determined by [employer].The modifications h ave not been cleare d or approvedby the FDA. This assay has been validated pursu antto the CLIA regula tions and is used forclinical purposes. For additional information, pl ease refer tohttp://educat ion.Fab .[employer]/ faq/OEW605f9(Th is link if provide d for information/edu catio nal purposes on ly.) RAC (test code = RAC) Performing Organization Information: Site ID: [id number] Name: [facility] Address: [address] [place] [address] Director: Dr. Arash Lopez [place] [facility] 12 [id number] 23:48:03 Test Item Value Reference Range Interpretation Comments Ventricular rate (test 62 code = 253) Atrial rate (test code = 62 255) TN interval (test code = 156 266) QRSD interval (test code 88 = 260) QT interval (test code = 436 264) QTC interval (test code 442 = 265) P axis 1 (test code = 31 267) QRS axis 1 (test code = 25 268) T wave axis (test code = 33 270) EKG impression (test Normal sinus code = 273) rhythm-Normal ECG-No previous ECGs available-Electronica lly Signed By Anibal Harris MD ([id number]) on 08/24/2020 11:48:02 PM Garry SegundoXR Chest 2 [id number] 10:15:33Hm Interface, Radiology Results Incoming - 06/30/2020 10:18 AM CST EXAMINATION: XR CHEST 2 VWCLINICAL HISTORY: R06.00 Dyspnea unspecified,DyspneaCOMPARISON: None.IMPRESSION:Heart and mediastinum: Cardiomediastinal silhouette is normal incontour.Lungs and pleura: There is no focal consolidation, pleural effusion or pneumothorax. Faint basilar densities may reflect mild atelectasis though pneumonitis is difficult to exclude.Bones: Thoracic spondylosis. No acute osseous abnormalities.[facility]-[id number] and approved by residential life director/fellow: Austen Chaves M.D.I, Alejandro Link MD, personally reviewed the images and resident's/fellow's findings and agree with the final report.Garry NavaCR MAMM BILATERAL ION CAD [id number] 14:54:06 - SCR MAMM BILATERAL ION CAD DIGITALBILATERAL DIGITAL SCREENING MAMMOGRAM 3D/2D WITH CAD: 10/30/2018CLINICAL: Asymptomatic. Digital breast tomosynthesis was performed in addition to routine CC and MLO views. Current mammographic images were evaluated by either a [employer] [place] M-Vu or a [employer] ImageChecker CAD (computer aided detection system). Comparison is made to exams dated 10/08/2017 mammogram, 08/10/2015 mammogram, and 09/06/2016 mammogram - [facility]. There are scattered fibroglandular tissues in both breasts. No suspicious mass, architectural distortion, malignant type calcifi cation, or lymph node abnormality detected. Breast architecture is stable compared to prior exams.IMPRESSION: NEGATIVEThere is no mammographic evidence of malignancy. Resume annual screening mammography in one year. Anna Dickerson M.D. cc/penrad:11/06/2018 14:54:06 Entry: cp - 11/08/2018 09:41:01Attending Technologist: Sandra Rainey MM, [facility] MammographyImaging Technologist: Patricia Christine MM, [facility] Mammographyletter sent: BIRADS 1-2 Normal Mammogram BI-RADS: 1 Negative
--- NOTE | 2020-10-08 00:10 | ER ---
Nurse's Notes [facility] Name: Paulina Ryan Age: 59 yrs Sex: Female : 1960 Arrival Date: 10/07/2020 Time: 22:37 Bed 15 Private MD: Diagnosis: Zoster [herpes zoster] Presentation: 10/07 22:42 Chief complaint: Patient states: Pt reports possible insect bite above R eye, mild ad5 redness and edema noted. Pt also states pain and itching to area with reported edema to R neck. No obvious edema noted by triage nurse to neck. Resp even/unlabored, airway patent. Coronavirus screen: At this time, the client does not indicate any symptoms associated with coronavirus-19. Ebola Screen: No symptoms or risks identified at this time. Initial Sepsis Screen: Does the patient meet any 2 criteria? No. Patient's initial sepsis screen is negative. Does the patient have a suspected source of infection? No. Patient's initial sepsis screen is negative. Risk Assessment: Do you want to hurt yourself or someone else? Patient reports no desire to harm self or others. Onset of symptoms was October 05, 2020. 22:42 Method Of Arrival: Ambulatory ad5 22:42 Acuity: CHENTE 5 ad5 Triage Assessment: 22:45 Bite description: bite sustained to forehead above R eye by an unknown animal, animal ad5 information: vaccination(s) is not applicable. General: Appears in no apparent distress. Behavior is calm, cooperative, appropriate for age. Pain: Complains of pain in forehead above R eye. Neuro: No deficits noted. Cardiovascular: No deficits noted. Respiratory: No deficits noted. Historical: - Allergies: 22:44 No Known Allergies; ad5 - Immunization history:: Adult Immunizations unknown. - Social history:: Smoking status: unknown. Screenin:34 Abuse screen: Denies threats or abuse. Nutritional screening: No deficits noted. ap3 Tuberculosis screening: No symptoms or risk factors identified. Fall Risk None identified. Assessment: 23:32 General: Appears in no apparent distress. comfortable, Behavior is calm, cooperative, ap3 appropriate for age. Pain: Complains of pain in middle aspect of right eyebrow Pain does not radiate. Pain began 2-3 days ago. Aggravated by touch. Neuro: Level of Consciousness is awake, alert, obeys commands, Oriented to person, place, time, situation. Cardiovascular: Capillary refill < 3 seconds. Respiratory: Airway is patent Respiratory effort is even, unlabored, Respiratory pattern is regular, symmetrical. GI: No signs and/or symptoms were reported involving the gastrointestinal system. : No signs and/or symptoms were reported regarding the genitourinary system. EENT: No signs and/or symptoms were reported regarding the EENT system. Derm: Skin is healthy with good turgor, insect bite above right eye brow Skin is dry, Skin is pink, warm \T\ dry. Skin temperature is warm. Vital Signs: 22:42 BP 154 / 83; Pulse 71; Resp 18 S; Temp 98.0; Pulse Ox 98% on R/A; Weight 97.52 kg; ad5 Height 5 ft. 4 in. (162.56 cm); 22:42 Body Mass Index 36.90 (97.52 kg, 162.56 cm) ad5 ED Course: 22:37 Patient arrived in ED. es 22:43 Triage completed. ad5 22:46 Arm band placed on. ad5 23:26 Dayna Carrillo, RN is Primary Nurse. ap3 23:35 Patient has correct armband on for positive identification. Bed in low position. Call ap3 light in reach. Side rails up X 1. Pulse ox on. NIBP on. Door closed. Noise minimized. Warm blanket given. 23:36 Corky Gill PA is PHCP. cp 23:37 Juliocesar Crump MD is Attending Physician. cp 06 00:20 No provider procedures requiring assistance completed. Patient did not have IV access ap3 during this emergency room visit. Administered Medications: 00:20 Drug: Tylenol #3 (300 mg-30 mg) 2 tabs {Note: RASS1.} Route: PO; ap3 00:20 Follow up: Response: No adverse reaction ap3 00:20 Drug: Acyclovir 800 mg Route: PO; ap3 00:20 Follow up: Response: No adverse reaction ap3 Outcome: 00:10 Discharge ordered by . cp 00:20 Discharged to home ambulatory. ap3 00:20 Condition: good 00:20 Discharge instructions given to patient, Instructed on discharge instructions, follow up and referral plans. medication usage, wound care, Demonstrated understanding of instructions, follow-up care, medications, wound care, Prescriptions given X 3. 00:21 Patient left the ED. ap3 Signatures: Andreea Loyd Corey, PA PA cp Prokisch, Amanda, RN RN ap3 [facility]ardo ad5
--- NOTE | 2020-10-08 00:10 | EDPHYS ---
Physician Documentation [facility] Name: Paulina Ryan Age: 59 yrs Sex: Female : 1960 Arrival Date: 10/07/2020 Time: 22:37 Bed 15 Private MD: ED Physician Juliocesar Crump HPI: 10/08 00:00 This 59 yrs old Female presents to ER via Ambulatory with complaints of cp Insect Bite. 00:00 The patient's rash thought to be caused by possible insect bite. The rash is located on cp the right lower forehead. The rash can be described as erythematous, vesicular, swelling. Onset: The symptoms/episode began/occurred 3 day(s) ago. Associated signs and symptoms: Pertinent positives: Pain Pertinent negatives: fever, itching, swelling of lips, swelling of throat, swelling of tongue. Patient reports recently returning from [facility] to [place] in which she spent time outdoors hiking. Dos not recall incident of being bitten by any insect. Denies any other areas of rash. Historical: - Allergies: 10/07 22:44 No Known Allergies; ad5 - Immunization history:: Adult Immunizations unknown. - Social history:: Smoking status: unknown. ROS: 10/08 00:05 Constitutional: Negative for body aches, chills, fever. cp 00:05 Eyes: Negative for discharge, pain, vision loss, visual disturbance. cp 00:05 ENT: Negative for ear pain, sore throat, difficulty swallowing, difficulty handling secretions. 00:05 Cardiovascular: Negative for chest pain, palpitations. 00:05 Respiratory: Negative for cough, shortness of breath, wheezing. 00:05 Abdomen/GI: Negative for abdominal pain, nausea, vomiting, and diarrhea. 00:05 Skin: Positive for rash, of the right lower forehead. 00:05 Neuro: Negative for headache, weakness. 00:05 All other systems are negative. Exam: 00:08 Constitutional: The patient appears in no acute distress, alert, awake, non-toxic, well cp developed, well nourished. 00:08 Head/Face: Normocephalic, atraumatic. cp 00:08 Eyes: Periorbital structures: appear normal, Pupils: equal, round, and reactive to light and accomodation, Extraocular movements: intact throughout, Conjunctiva: normal, no exudate, no injection, Sclera: no appreciated abnormality, Lids and lashes: appear normal, bilaterally. 00:08 ENT: External ear(s): are unremarkable, Ear canal(s): are normal, clear, TM's: are normal, Nose: is normal, Mouth: Lips: moist, Oral mucosa: moist, Posterior pharynx: Airway: no evidence of obstruction, patent. 00:08 Chest/axilla: Inspection: normal. 00:08 Cardiovascular: Rate: normal. 00:08 Respiratory: the patient does not display signs of respiratory distress, Respirations: normal, no use of accessory muscles. 00:08 Skin: rash can be described as quarter size area of mild erythema, swelling, 2-3 vesicular lesions noted. right side scalp examined negative for rash, no rash extending across midline of forehead and no rash noted in ear canal and/or TM and/or on nose, on the lower right forehead. Vital Signs: 10/07 22:42 BP 154 / 83; Pulse 71; Resp 18 S; Temp 98.0; Pulse Ox 98% on R/A; Weight 97.52 kg; ad5 Height 5 ft. 4 in. (162.56 cm); 22:42 Body Mass Index 36.90 (97.52 kg, 162.56 cm) ad5 MDM: 23:53 Patient medically screened. cp 10/08 00:00 Differential diagnosis: impetigo, allergic reaction, insect bite, herpes zoster. cp 00:10 Data reviewed: vital signs, nurses notes, I have discussed the patient's cp presentation/case with the attending Emergency Department Physician; and as a result, I will discharge patient. 00:10 Counseling: I had a detailed discussion with the patient and/or guardian regarding: the cp historical points, exam findings, and any diagnostic results supporting the discharge/admit diagnosis, the need for outpatient follow up, an under presser, to return to the emergency department if symptoms worsen or persist or if there are any questions or concerns that arise at home. 00:10 ED course: VSS. Discussed concern that rash concerning for herpes zoster. Recommend cp initiating treatment with antivirals and f/u with pcp. Administered Medications: 00:20 Drug: Tylenol #3 (300 mg-30 mg) 2 tabs {Note: RASS1.} Route: PO; ap3 00:20 Follow up: Response: No adverse reaction ap3 00:20 Drug: Acyclovir 800 mg Route: PO; ap3 00:20 Follow up: Response: No adverse reaction ap3 Disposition: 00:20 Chart complete. cp 00:22 Co-signature as Attending Physician, Juliocesar Crump MD. pkl Disposition: 10/08/20 00:10 Discharged to Home. Impression: Zoster [herpes zoster]. - Condition is Stable. - Discharge Instructions: Shingles. - Prescriptions for mupirocin 2 % Topical ointment - apply 1 application by TOPICAL route 3 times per day for 7 days; 1 tube. Valtrex 1 g Oral Tablet - take 1 tablet by ORAL route every 8 hours for 7 days; 21 tablet. Tramadol 50 mg Oral Tablet - take 1 tablet by ORAL route every 8 hours as needed; 12 tablet. - Medication Reconciliation Form, Thank You Letter, Antibiotic Education, Prescription Opioid Use form. - Follow up: Private Physician; When: 1 - 2 days; Reason: Recheck today's complaints. - Problem is new. - Symptoms have improved. Signatures: Juliocesar Crump MD MD pkl Corky Gill PA PA cp Dayna Carrillo RN RN ap3 [facility] Corrections: (The following items were deleted from the chart) 00:21 00:10 10/08/2020 00:10 Discharged to Home. Impression: Zoster [herpes zoster]. ap3 Condition is Stable. Prescriptions for mupirocin 2 % Topical ointment - apply 1 application by TOPICAL route 3 times per day for 7 days; 1 tube, Valtrex 1 g Oral Tablet - take 1 tablet by ORAL route every 8 hours for 7 days; 21 tablet, Tramadol 50 mg Oral Tablet - take 1 tablet by ORAL route every 8 hours as needed; 12 tablet. and Forms are Medication Reconciliation Form, Thank You Letter, Antibiotic Education, Prescription Opioid Use. Follow up: Private Physician; When: 1 - 2 days; Reason: Recheck today's complaints. Problem is new. Symptoms have improved. cp
[2020-10-08 00:28] VITALS: BP 154/83; TEMP 98; O2SAT 98
[2020-10-08] MEDS ORDERED: ACYCLOVIR 400 MG TABLET ONE (00:31)
[2020-10-08] MEDS ORDERED: CODEINE 30MG/APAP 300MG TAB ONE (00:32)
== END 2020-10-08 00:21 | disposition home or self-care (01) ==
LOC: ER 22:35
DX: B02.9 Zoster without complications (principal)
CPT/HCPCS: 99283

== ENCOUNTER 2022-07-28 13:30 | Emergency (ER) | payer BC ==
--- OUTSIDE RECORDS SUMMARY | 2022-07-28 13:45 | XMS REPORT | Continuity of Care Document ---
:1960 Author Organization [facility] t Address [address] [place] [address] Care Team Providers Name Role Phone SONY PICKERING Primary Care Physician Unavailable REAGAN TUCKER Attending Clinician Unavailable Jaz Bean MD Attending Clinician Doctor Unassigned, Jamul Attending Clinician Unavailable DARNELL ALEXANDRA Attending Clinician Unavailable Ivette Fajardo MA Attending Clinician Unavailable Valentina Sam MA Attending Clinician Unavailable CHRISTAL MARQUEZ Attending Clinician Unavailable Tangela Fan MD Attending Clinician Margarita Moreau MA Attending Clinician Unavailable Chester MONK, Julianne Salcedo Attending Clinician Laura Chaves MD Attending Clinician Antonino Aponte DO Attending Clinician Cheryl MONK, [place] Attending Clinician Gayathri CALDERÓN, Ibrahima Noel Attending Clinician Demond MONK, Katie Israel Attending Clinician [phone] Shasha Hoyt MA Attending Clinician Unavailable Patsy MONK, Alexi Krause Attending Clinician [phone] Green RUBY ON RAILS CONSULTANT, Mauricio Attending Clinician GREEN, MAURICIO Attending Clinician Unavailable Yael RUBY ON RAILS CONSULTANT, Jany Attending Clinician YAEL, JANY Attending Clinician Unavailable Romeo RN, Ivette Attending Clinician Unavailable Omlouisa RUBY ON RAILS CONSULTANT, Mariana Attending Clinician Lab, [facility] Attending Clinician Unavailable TODD, MARIANA Attending Clinician Unavailable Beena MONK, Herbert Herman Attending Clinician Edgar Henderson MD Attending Clinician EDGAR HENDERSON Attending Clinician Unavailable Gosia Rivas MA Attending Clinician Unavailable Mansoor Randolph MD Attending Clinician Liya Alvarez RN Attending Clinician Unavailable Cheryl Doss Attending Clinician Unavailable Therapy, [facility] Covid Infusion Attending Clinician Unavailable Alan Osuna MD Attending Clinician ALAN OSUNA Attending Clinician Unavailable ENID LUNA Admitting Clinician Unavailable Patrice Chou Admitting Clinician Unavailable Payers Payer Name Policy Type Policy Number Effective Date Expiration Date S isabela [employer] [place] - [id number] 2020 00:00:00 OUT OF STATE OUT OF STATE [id number] BCBS - PPO - BCBS Problems Condition Condition Condition Status Onset Resolution Last Treating Co mments Source Name Details Category Date Date Treatment Clinician Date 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 2-08 ity of 00:00: [place] 00 [facility] CAD in CAD in Disease Active [facility] [place] [facility] artery artery 00:00: Hospita 00 l Family Family Disease Active [facility] history of history of 4-[address] cardiovasc cardiovasc 00:00: Ho spita ular ular 00 l disease disease SOB SOB Disease Active [facility] (shortness (shortness 2-24 st of breath) of breath) 00:00: Ho spita 00 l Lumbar Lumbar Disease Active Univers radiculopa radiculopa 4-09 it y of thy thy 00:00: [address] Branch No known No known Disease [facility] active active College problems problems of Medicin e Allergies, Adverse Reactions, Alerts Allergy Allergy Status Severity Reaction(s) Onset Inactive Treating Comm ents Source Name Type Date Date Clinician Levonorchristelle Propensi Active Other (See Sneeze Me thodi estrel-E ty to Comments) 09-16 st thinyl adverse 00:00: Hospita [place] reaction 00 l s to drug No Known DA Active U 2016-05 [facility]09 [facility] 00[facility] Hosp[facility] 00 l [facility] No Known DA Active U 2016-05 [facility] Allergie 05-09 [facility] 00:[facility]: Hospita 00 l [facility] NO KNOWN Drug Active [facility] ALLERGIE Class ity of S [facility] Family History Family Member Diagnosis Comments Start Date Stop Date Source Family member Colon cancer [facility] Family member Colon polyps [facility] Natural brother Heart attack [facility] Natural brother Prostate cancer [facility] Natural father Heart attack [facility] Natural father Lung cancer [facility] Natural mother Alzheimer's disease [facility] Natural mother Heart attack [facility] Social History Social Habit Start Date Stop Date Quantity Comments Source History of Cigarette Smoker [facility] Trice win of tobacco use Medicine History SDOH Nondenominational Alcohol Frequency Hospita l History SDOH [facility]ondenominational Alcohol Std Hospital Drinks History SDOH Nondenominational Alcohol Binge Hospital History SDOH Food 2022-07-26 2022-07-[address] Worry 00:00:00 00:00:00 Hospital History SDOH Food 2022-07-26 2022-07-[address] Scarcity 00:00:00 00:00:00 Hospital History SDOH 2022-07-26 2022-07-26 2 Nondenominational Transport Med 00:00:00 00:00:00 Hospital History SDOH 2022-07-26 2022-07-26 2 Nondenominational Transport Non-Med 00:00:00 00:00:00 Hospita l Exposure to 2022-06-20 2022-06-30 Not sure [facility]-CoV-2 00:00:00 13:03:00 [facility] (event) [place] Tobacco use and 2022-05-30 2022-05-30 Smokeless tobacco [facility] exposure 00:00:00 00:00:00 non-user Medicine Alcohol intake 2022-03-21 2022-03-21 Ex-drinker Nondenominational 00:00:00 00:00:00 (finding) Hospital Alcohol Comment 2017-12-26 2017-12-26 socially Nondenominational 00:00:00 00:00:00 [facility] Sex Ass[birth year] At [birth year] [facility] llege of 00:00:00 00:00:00 Medicine Smoking Status Start Date Stop Date Source Ex-smoker 2022-05-30 00:00:00 2022-05-30 00:00:00 [facility] Never smoked tobacco [facility] Medications Ordered Filled Start Stop Current Ordering Indication Dosage Frequency Signature Comments Components Source Medication Medication Date Date Medication? Clinician (SIG) Name Name estradioL 2022- No 1{spray QD Place 1 M ethodi (EVAMIST) 07-27 } spray on st 1.53 10:10: 00:00 the skin Hospita mg/spray 49 :00 nightly. l (1.7%) transdermal spray montelukast 2022- No 10mg QD Take 10 mg [facility]i (SINGULAIR) 07-[address] 10 mg 10:10: 00:00 nightly as Hospi ta tablet 49 :00 needed l (allergies ). linaCLOtide 2022- No 72ug QD Take 1 Met hodi (Linzess) 07-[address] 72 mcg 10:10: 00:00 (72 mcg Hospita capsule 49 :00 total) by l mouth daily before breakfast. Lactobacill 2022- No Take by Md thjakub 07-[address] acidophilus 10:10: 00:00 [facility] (PROBIOTIC 49 :00 l ORAL) ciprofloxac 2022- No 500mg Q.5D Take 1 Me thodi in (CIPRO) 07-[address] 500 MG 10:10: 00:00 (500 mg Hospita tablet 49 :00 total) by l mouth 2 (two) times a day. cefpodoxime 2022- No 100mg Q.5D Take 1 Me thodi (VANTIN) 07-[address] 100 MG 10:10: 00:00 (100 mg Hospita tablet 49 :00 total) by l mouth 2 (two) times a day. fluconazole Yes 200mg Take 1 Met hodi (Diflucan) 07-[address] 200 MG 00:00: (200 mg Hospita tablet 00 total) by l mouth take as directed (as directed) for up to 3 doses. Every 3 days estradioL 2023- Yes 1g Q.5W Insert 1 g M ethodi (Estrace) 07-[address] 0.01 % (0.1 00:00: 04:59 vagina 2 H ospita mg/gram) 00 :00 (two) l vaginal times a cream week. tacrolimus Yes Apply to [facility] (PROTOPIC) 2- aa BID College 0.1 % 00:00: (groin) of ointment 00 Medicin e sod 2022- No 1{kit} Q.5D Take 1 kit Meth jakub picosulf-ma 05-31 by mouth 2 s t g ox-citric 00:00: 00:00 (two) Hosp adama ac 00 :00 times a l (Clenpiq) day. 10 mg-3.5 Please gram -12 follow the gram/160 mL prep solution instructio ns provided by the office only. Probiotic Yes Take by [employer] Product 1-24 mouth. College (PROBIOTIC 10:14: of DAILY OR) 30 Medicin e Probiotic 0 Yes Take by [employer] (PVT)lo r Product 1-24 mouth. [facility] (PROBIOTIC 10:14: of DAILY OR) 30 Medicin e Pentosan Yes Take by [facility] Polysulfate 1-24 mouth. Colleg e Sodium 100 10:10: of MG CAPS 07 Medicin e ESTRADIOL Yes Take by [employer] OR 1-24 mouth. College 10:10: of 07 Medicin e Cholecalcif 3-0 Yes Take by [place] millie jun 1-24 mouth. [facility] (VITAMIN D 10:10: of OR) 07 Medicin e Vitamins C 3-0 Yes Take by [facility] E (VITAMIN 1-24 mouth. [facility] C & E 10:10: of COMPLEX OR) 07 Medicin e THYROID OR 3-0 Yes Take by [facility] 1-24 mouth. [facility] 10:10: of 07 Medicin e Pentosan 2022-0 Yes Take by [facility] Polysulfate 1-24 mouth. Colleg e Sodium 100 10:10: of MG CAPS 07 Medicin e ESTRADIOL 2022-0 Yes Take by [facility] OR 1-24 mouth. [facility] 10:10: of 07 Medicin e Cholecalcif 2022-0 Yes Take by [place] millie jun 1-24 mouth. [facility] (VITAMIN D 10:10: of OR) 07 Medicin e Vitamins C 2022-0 Yes Take by [facility] E (VITAMIN 1-24 mouth. [place] C & E 10:10: of COMPLEX OR) 07 Medicin e THYROID OR 3-0 Yes Take by [facility] 1-24 mouth. [facility] 10:10: of 07 Medicin e Methen-Hyos 2022-0 Yes [id number] 81.6mg Take 81.6 Héctor c-Meth 1-24 mg by [facility] 00:00: mouth 3 of Phos 00 times Medicin (UROGESIC-B daily as e LUE) 81.6 needed. MG TABS estradiol 2023-[id number] 1 g [facility] (ESTRACE 1-24 vaginally Colleg e VAGINAL) 00:00: 3 times of 0.1 MG/GM 00 weekly. Medicin vaginal e cream Methen-Hyos 3-0 Yes [id number] 81.6mg Take 81.6 [facility] c-Meth 1-24 mg by [facility] 00:00: mouth 3 of Phos 00 times Medicin (UROGESIC-B daily as e LUE) 81.6 needed. MG TABS estradiol 2023-[id number] 1 g [facility] (ESTRACE 1-24 vaginally Colleg e VAGINAL) 00:00: 3 times of 0.1 MG/GM 00 weekly. Medicin vaginal e cream prasterone, 2021-05 Yes 6.5mg QD Insert 6.5 Methodi dhea, 2-[address] (Intrarosa) 00:00: the vagina Hospita 6.5 mg 00 nightly. l insert fluconazole 2021-05- No 200mg Q7D Take 1 Me thodi (Diflucan) 2 01-[address] 200 MG 00:00: 05:59 (200 mg Hospita tablet 00 :00 total) by l mouth once a week for 6 doses. ondansetron 2021-05- No 4mg Q8H Take 1 Met hodi ODT 1-15 11-19 tablet (4 st (ZOFRAN-ODT 00:00: 05:59 mg total) Hospita ) 4 MG 00 :00 by mouth l disintegrat every 8 ing tablet (eight) hours as needed for nausea or vomiting for up to 3 days. ergocalcife Yes [id number] Q7D Take Meth jakub rol 01-11 50,000 [address] (VITAMIN 13:34: Units by Hospi ta D2) 50,000 00 mouth once l unit a week. capsule Sundays HYDROcodone 2021- No [id number] 1{tbl} Q6H Take 1 [facility]i -acetaminop 6-11-[address] hen (NORCO) 00:00: 04:59 mouth Hosp adama 5-325 mg 00 :00 every 6 l per tablet (six) hours as needed for severe pain for up to 7 days .acute pain. Max Daily Amount: 4 tablets cholecalcif 2021- No [id number] Q7D Take Met hodi jun, 618 18 50,000 st vitamin D3, 14:51: 00:00 Units by H ospita 1,250 mcg 55 :00 mouth once l (50,000 a week. unit) Sunday capsule nystatin 2021- No [id number] Q.5D Apply Me thodi (MYCOSTATIN -16 02- topically st ) 100,000 00:00: 00:00 2 (two) Hosp adama unit/gram 00 :00 times a l cream day. rosuvastati 2021- No 20mg QD Take 1 Met hodi n (CRESTOR) 5 18 tablet (20 s t 20 mg 00:00: 00:00 mg total) Hospit a tablet 00 :00 by mouth l daily. bromphenira 2021-0 Yes [id number] 10mL Take 10 mL Univers mine-pseudo 4-07 by mouth 4 it y of ep[place]rine-D 00:00[place] ([place] ([place] 00 times Medical DM) 2-30-10 daily as Bran ch mg/5 mL needed for syrup Cold symptoms or Cough. bromphenira 2021-0 Yes [id number] 10mL Take 10 mL Univers mine-pseudo 4-07 by mouth 4 it y of ephedrine-D 00:00: ([place] (BROMFED 00 times Medical DM) 2-30-10 daily as Bran ch mg/5 mL needed for syrup Cold symptoms or Cough. bromphenira 2021-0 Yes [id number] 10mL Take 10 mL Univers mine-pseudo 4-07 by mouth 4 it y of ephedrine-D 00:00: ([place] (BROMFED 00 times Medical DM) 2-30-10 daily as Bran ch mg/5 mL needed for syrup Cold symptoms or Cough. bromphenira 2021-0 Yes [id number] 10mL Take 10 mL Univers mine-pseudo 4-07 by mouth 4 it y of ephedrine-D 00:00: ([place] (BROMFED 00 times Medical DM) 2-30-10 daily as Bran ch mg/5 mL needed for syrup Cold symptoms or Cough. bromphenira 2021-0 Yes [id number] 10mL Take 10 mL Univers mine-pseudo 4-07 by mouth 4 it y of ephedrine-D 00:00: ([place] (BROMFED 00 times Medical DM) 2-30-10 daily as Bran ch mg/5 mL needed for syrup Cold symptoms or Cough. bromphenira 2021-0 Yes [id number] 10mL Take 10 mL Univers mine-pseudo 4-07 by mouth 4 it y of ephedrine-D 00:00: ([place] (BROMFED 00 times Medical DM) 2-30-10 daily as Bran ch mg/5 mL needed for syrup Cold symptoms or Cough. cholecalcif 2021-0 Yes [id number] QD Take Meth jakub jun, - 50,000 st vitamin D3, 12:51: Units by Ho spita 1,250 mcg 32 mouth l (50,000 daily. unit) capsule cholecalcif Yes [id number] QD Take Meth jakub jun, - 50,000 st vitamin D3, 12:51: Units by Ho spita 1,250 mcg 32 mouth l (50,000 daily. unit) capsule fluconazole 2021- No 200mg QD Take 1 Me thodi (DIFLUCAN) 05-[address] 200 MG 00:00: 05:59 (200 mg Hospita tablet 00 :00 total) by l mouth daily for 5 days. fluconazole 2021- No 200mg QD Take 1 Me thodi (DIFLUCAN) 05-[address] 200 MG 00:00: 05:59 (200 mg Hospita tablet 00 :00 total) by l mouth daily for 5 days. methylPREDN 2020-05 Yes [id number] Take by [facility] ISolone 4 -27 mouth ity of mg tablets 00:00: [place]STRU [place] CTIONS. Medical follow Branch package directions methylPREDN 2020-05 Yes [id number] Take by [facility] Spotzotone 4 -27 mouth ity of mg tablets 00:00: [place]-INSTRU [place] CTIONS. Medical follow Branch package directions methylPREDN 2020-05 Yes [id number] Take by [facility] Spotzotone 4 -27 mouth ity of mg tablets 00:00: [place]-INSTRU [place] 00 CTIONS. Medical follow Branch package directions methylPREDN 2020-05 Yes [id number] Take by Univers ISolone 4 -27 mouth ity of mg tablets 00:00: [place]-INSTRU [place] 00 CTIONS. Medical follow Branch package directions methylPREDN 2020-05 Yes [id number] Take by [facility] ISolone 4 1-27 mouth ity of mg tablets 00:00: [place]-INSTRU [place] 00 CTIONS. Medical follow Branch package directions methylPREDN 2020-05 Yes [id number] Take by [facility] Spotzotone 4 1-27 mouth ity of mg tablets 00:00: [place]-INSTRU [place] 00 CTIONS. Medical follow Branch package directions methylPREDN 2020-05 Yes [id number] Take by [facility] ISolone 4 1-27 mouth ity of mg tablets 00:00: [place]-INSTRU [place] CTIONS. Medical follow Branch package directions methylPREDN 2020-05 Yes [id number] Take by [facility] ISolone 4 1-27 mouth ity of mg tablets 00:00: [place]-INSTRU [place] 00 CTIONS. Medical follow Branch package directions methylPREDN 2020-05 Yes [id number] Take by [facility] 4 1-27 mouth ity of mg tablets 00:00: [place]-INSTRU [place] 00 CTIONS. Medical follow Branch package directions amb custom Yes Valium 5mg M ethodi compound 11-[address] 00:00: y - insert Hospita 00 vaginally l prn pain/spasm /ache amb custom Yes Valium 5mg M ethodi compound 11-[address] 00:00: y - insert Hospita 00 vaginally l prn pain/spasm /ache amb custom 2021- No Valium 5mg [facility]i compound [id number] 00:00: 00:00 y - insert Hospit a 00 :00 vaginally l prn pain/spasm /ache clotrimazol 2021- No Q.5D Apply Meth jakub e-betametha 09-06- topically st sone 00:00: 04:59 2 (two) Hospita (LOTRISONE) 00 :00 times a l 1-0.05 % day. Thin cream film estradioL 2021- No 1{spray QD Place 1 M ethodi (Evamist) 09-06 } spray on st 1.53 00:00: 04:59 the skin Hospita mg/spray 00 :00 daily. l (1.7%) transdermal spray clotrimazol 2021- No Q.5D Apply Meth jakub e-betametha 09-06- topically st sone 00:00: 04:59 2 (two) Hospita (LOTRISONE) 00 :00 times a l 1-0.05 % day. Thin cream film estradioL 2021- No 1{spray QD Place 1 M ethodi (Evamist) 09-06-04 } spray on st 1.53 00:00: 04:59 the skin Hospita mg/spray 00 :00 daily. l (1.7%) transdermal spray clotrimazol No Q.5D Apply Meth jakub e-betametha 09-[address] sone 00:00: 04:59 2 (two) Hospita (LOTRISONE) 00 :00 times a l 1-0.05 % day. Thin cream film estradioL No 1{spray QD Place 1 M ethodi (Evamist) 09-06 } spray on st 1.53 00:00: 04:59 the skin Hospita mg/spray 00 :00 daily. l (1.7%) transdermal spray estradioL No 1{spray QD Place 1 M ethodi (Evamist) 09-06 } spray on st 1.53 00:00: 00:00 the skin Hospita mg/spray 00 :00 daily. l (1.7%) transdermal spray estradioL 2020- No 1{spray QD Place 1 M ethodi (Evamist) 09-06 } spray on st 1.53 00:00: 00:00 the skin Hospita mg/spray 00 :00 daily. l (1.7%) transdermal spray DivigeL 2020- No 1{appli QD PLACE 1 Met hodi 0.25 5-27 cation} APPLICATIO st mg/0.25 00:00: 00:00 N ON THE Hospi ta gram (0.1 00 :00 SKIN l %) gel in DAILY. packet DivigeL 2020- No 1{appli QD PLACE 1 Met hodi 0.25 5- 07-27 cation} APPLICATIO st mg/0.25 00:00: 00:00 N ON THE Hospi ta gram (0.1 00 :00 SKIN l %) gel in DAILY. packet estradioL 2020- No 1{spray QD Place 1 M ethodi (Evamist) 09-02 } spray on st 1.53 00:00: 00:00 the skin Hospita mg/spray 00 :00 daily. l (1.7%) transdermal spray clotrimazol 2020- No Q.5D Apply Meth jakub e-betametha 09-[address] sone 00:00: 00:00 2 (two) Hospita (LOTRISONE) 00 :00 times a l 1-0.05 % day. Thin cream film amb [email or web address] 2020- No Test[place] Methodi compound 09-02 ne 2mg/ml st 00:00: 00:00 in Hospita 00 :00 Lipoderm l base Apply 1ml to back of calf or inner forearm once/dayWa sh hands thoroughly after applicatio n estradioL 2020- No 1{spray QD Place 1 M ethodi (Evamist) 09-02 } spray on st 1.53 00:00: 00:00 the skin Hospita mg/spray 00 :00 daily. l (1.7%) transdermal spray clotrimazol 2020- No Q.5D Apply Meth jakub e-betametha 09-[address] sone 00:00: 00:00 2 (two) Hospita (LOTRISONE) 00 :00 times a l 1-0.05 % day. Thin cream film amb [email or web address] 2020- No [place] Methodi compound 09-02 ne 2mg/ml st 00:00: 00:00 in Hospita 00 :00 Lipoderm l base Apply 1ml to back of calf or inner forearm once/dayWa sh hands thoroughly after applicatio n amb [email or web address] 2020- No [place] Methodi compound 08-30 ne 2mg/ml st 00:00: 00:00 in Hospita 00 :00 Lipoderm l base Apply 1ml to back of calf per day amb [email or web address] 2020- No [place] Methodi compound 08-30 ne 2mg/ml st 00:00: 00:00 in Hospita 00 :00 Lipoderm l base Apply 1ml to back of calf per day CHOLECALCIF Yes Take by Uni vers JUN, 3-24 mouth. ity of VITAMIN D3, 18:13: [address] Branch CHOLECALCIF Yes Take by Uni vers JUN, 3-24 mouth. ity of VITAMIN D3, 18:13: [place] ORAL 25 Medical Branch CHOLECALCIF 2021-0 Yes Take by Uni vers JUN, 3-24 mouth. ity of VITAMIN D3, 18:13: [place] ORAL 25 Medical Branch CHOLECALCIF 2021-0 Yes Take by Uni vers JUN, 3-24 mouth. ity of VITAMIN D3, 18:13: [place] ORAL 25 Medical Branch CHOLECALCIF 2021-0 Yes Take by Uni vers JUN, 3-24 mouth. ity of VITAMIN D3, 18:13: [place] ORAL 25 Medical Branch CHOLECALCIF 2021-0 Yes Take by Uni vers JUN, 3-24 mouth. ity of VITAMIN D3, 18:13: [place] ORAL 25 Medical Branch CHOLECALCIF 2021-0 Yes Take by Uni vers JUN, 3-24 mouth. ity of VITAMIN D3, 18:13: [place] ORAL 25 Medical Branch CHOLECALCIF 2021-0 Yes Take by Uni vers JUN, 3-24 mouth. ity of VITAMIN D3, 18:13: [place] ORAL 25 Medical Branch CHOLECALCIF 2021-0 Yes Take by Uni vers JUN, 3-24 mouth. ity of VITAMIN D3, 18:13: [place] ORAL 25 Medical Branch CHOLECALCIF 2021-0 Yes Take by Uni vers JUN, 3-24 mouth. ity of VITAMIN D3, 18:13: [place] ORAL 25 Medical Branch CHOLECALCIF 2021-0 Yes Take by Uni vers JUN, 3-24 mouth. ity of VITAMIN D3, 13:13: [place] ORAL 25 Medical Branch CHOLECALCIF 2021-0 Yes Take by Uni vers JUN, 3-24 mouth. ity of VITAMIN D3, 13:13: [place] ORAL 25 Medical Branch CHOLECALCIF 2021-0 Yes Take by Uni vers JUN, 3-24 mouth. ity of VITAMIN D3, 13:13: [place] ORAL 25 Medical Branch CHOLECALCIF 2021-0 Yes Take by Uni vers JUN, 3-24 mouth. ity of VITAMIN D3, 13:13: [place] ORAL 25 Medical Branch CHOLECALCIF 2021-0 Yes Take by Uni vers JUN, 3-24 mouth. ity of VITAMIN D3, 13:13: [place] ORAL 25 Medical Branch CHOLECALCIF 2021-0 Yes Take by Uni vers JUN, 3-24 mouth. ity of VITAMIN D3, 13:13: [place] ORAL 25 Medical Branch CHOLECALCIF 2020-0 Yes Take by Uni vers JUN, 3-24 mouth. ity of VITAMIN D3, 13:13: [address] CHOLECALCIF 2020-0 Yes Take by Uni vers JUN, 3-24 mouth. ity of VITAMIN D3, 13:13: [address] CHOLECALCIF 2020-0 Yes Take by Uni vers JUN, 3-24 mouth. ity of VITAMIN D3, 13:13: [address] levocetiriz 0 2020- No 5mg QD Take 1 Met hodi ine (Xyzal) 3-15 04-15 tablet (5 st 5 MG tablet 00:00: 04:59 mg total) Hospita 00 :00 by mouth l every evening for 30 days. levocetiriz 2020-0 2020- No 5mg QD Take 1 Met hodi ine (Xyzal) 3-15 04-15 tablet (5 st 5 MG tablet 00:00: 04:59 mg total) Hospita 00 :00 by mouth l every evening for 30 days. azelastine 2020-2020- No 1{spray Q.5D 1 spray Methodi (ASTELIN) 07-16 } into each st 137 mcg 00:00: 04:59 nostril 2 Hosp adama (0.1 %) 00 :00 (two) l nasal spray times a day for 30 days. Use in each nostril as directed azelastine 2020-0 2020- No 1{spray Q.5D 1 spray Methodi (ASTELIN) 07-16 } into each st 137 mcg 00:00: 04:59 nostril 2 Hosp adama (0.1 %) 00 :00 (two) l nasal spray times a day for 30 days. Use in each nostril as directed levocetiriz 1-0 1- No 5mg QD Take 1 Met hodi ine (Xyzal) -12 03-15 tablet (5 st 5 MG tablet 00:00: 00:00 mg total) Hospita 00 :00 by mouth l every evening for 30 days. levocetiriz 2020-0 2021- No 5mg QD Take 1 Met hodi ine (Xyzal) -12 03-15 tablet (5 st 5 MG tablet 00:00: 00:00 mg total) Hospita 00 :00 by mouth l every evening for 30 days. fluconazole No 200mg Q3D Take 1 Me thodi (Diflucan) 07-08- tablet st 200 MG 00:00: 00:00 (200 mg Hospita tablet 00 :00 total) by l mouth every 3 (three) days for 3 doses. fluconazole 2020- No 200mg Q3D Take 1 Me thodi (Diflucan) 07-08- tablet st 200 MG 00:00: 00:00 (200 mg Hospita tablet 00 :00 total) by l mouth every 3 (three) days for 3 doses. bamlanivima No 700mg 700 mg, IV Univers b (EUA) 700 06-12 Infusion, it y of mg in NaCl 16:15: 16:50 ONCE, Sat [place] 0.9% (NS) 00 :00 06/12/20 at Medic al 270 mL 1015, For Branch infusion 1 dose
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 Dilu naty infusion solution should be administer ed immediatel y. If immediate administra tion is not possible, store diluted bamlanivim ab infusion solution for up to 24 hours refrigerat ed at 2?C to 8?C (36?F to 46?F) or up to 7 hours at 20?C to 25?C (68?F to 77?F) including infusion time.<b r> bamlanivima No 700mg 700 mg, IV Univers b (EUA) 700 06-12 Infusion, it y of mg in NaCl 16:15: 16:50 ONCE, Sat [place] 0.9% (NS) 00 :00 06/12/20 at Medic al 270 mL 1015, For Branch infusion 1 dose
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 Dilu naty infusion solution should be administer ed immediatel y. If immediate administra tion is not possible, store diluted bamlanivim ab infusion solution for up to 24 hours refrigerat ed at 2?C to 8?C (36?F to 46?F) or up to 7 hours at 20?C to 25?C (68?F to 77?F) including infusion time.<b r> DIVIGEL Yes PLACE 1 Univers 0.25 2-05 APPLICATIO ity of mg/0.25 00:00: N ON THE [place] gram (0.1 00 SKIN Medical %) GlPk DAILY. Branch DIVIGEL Yes PLACE 1 Univers 0.25 2-05 APPLICATIO ity of mg/0.25 00:00: N ON THE [place] gram (0.1 00 SKIN Medical %) GlPk DAILY. Branch DIVIGEL Yes PLACE 1 Univers 0.25 2-05 APPLICATIO ity of mg/0.25 00:00: N ON THE [place] gram (0.1 00 SKIN Medical %) GlPk DAILY. Branch DIVIGEL Yes PLACE 1 Univers 0.25 2-05 APPLICATIO ity of mg/0.25 00:00: N ON THE [place] gram (0.1 00 SKIN Medical %) GlPk DAILY. Branch DIVIGEL Yes PLACE 1 Univers 0.25 2-05 APPLICATIO ity of mg/0.25 00:00: N ON THE [place] gram (0.1 00 SKIN Medical %) GlPk DAILY. Branch DIVIGEL Yes PLACE 1 Univers 0.25 2-05 APPLICATIO ity of mg/0.25 00:00: N ON THE [place] gram (0.1 00 SKIN Medical %) GlPk DAILY. Branch DIVIGEL Yes PLACE 1 Univers 0.25 2-05 APPLICATIO ity of mg/0.25 00:00: N ON THE [place] gram (0.1 00 SKIN Medical %) GlPk DAILY. Branch DIVIGEL Yes PLACE 1 Univers 0.25 2-05 APPLICATIO ity of mg/0.25 00:00: N ON THE [place] gram (0.1 00 SKIN Medical %) GlPk DAILY. Branch DIVIGEL Yes PLACE 1 Univers 0.25 2-05 APPLICATIO ity of mg/0.25 00:00: N ON THE [place] gram (0.1 00 SKIN Medical %) GlPk DAILY. Branch DIVIGEL Yes PLACE 1 Univers 0.25 2-05 APPLICATIO ity of mg/0.25 00:00: N ON THE [place] gram (0.1 00 SKIN Medical %) GlPk DAILY. Branch DIVIGEL Yes PLACE 1 Univers 0.25 2-05 APPLICATIO ity of mg/0.25 00:00: N ON THE [place] gram (0.1 00 SKIN Medical %) GlPk DAILY. Branch DIVIGEL Yes PLACE 1 Univers 0.25 2-05 APPLICATIO ity of mg/0.25 00:00: N ON THE [place] gram (0.1 00 SKIN Medical %) GlPk DAILY. Branch DIVIGEL Yes PLACE 1 Univers 0.25 2-05 APPLICATIO ity of mg/0.25 00:00: N ON THE [place] gram (0.1 00 SKIN Medical %) GlPk DAILY. Branch DIVIGEL Yes PLACE 1 Univers 0.25 2-05 APPLICATIO ity of mg/0.25 00:00: N ON THE [place] gram (0.1 00 SKIN Medical %) GlPk DAILY. Branch DIVIGEL Yes PLACE 1 Univers 0.25 2-05 APPLICATIO ity of mg/0.25 00:00: N ON THE [place] gram (0.1 00 SKIN Medical %) GlPk DAILY. Branch DIVIGEL Yes PLACE 1 Univers 0.25 2-05 APPLICATIO ity of mg/0.25 00:00: N ON THE [place] gram (0.1 00 SKIN Medical %) GlPk DAILY. Branch DIVIGEL Yes PLACE 1 Univers 0.25 2-05 APPLICATIO ity of mg/0.25 00:00: N ON THE [place] gram (0.1 00 SKIN Medical %) GlPk DAILY. Branch DIVIGEL Yes PLACE 1 Univers 0.25 2-05 APPLICATIO ity of mg/0.25 00:00: N ON THE [place] gram (0.1 00 SKIN Medical %) GlPk DAILY. Branch DIVIGEL Yes PLACE 1 Univers 0.25 2-05 APPLICATIO ity of mg/0.25 00:00: N ON THE [place] gram (0.1 00 SKIN Medical %) GlPk DAILY. Branch estradioL 2020- No 1{appli QD Place 1 M ethodi (DivigeL) 08-06 cation} applicatio st 0.25 00:00: 00:00 n on the Hospita mg/0.25 00 :00 skin l gram (0.1 daily. %) gel in packet estradioL 2020- No 1{appli QD Place 1 M ethodi (DivigeL) 08-06 cation} applicatio st 0.25 00:00: 00:00 n on the Hospita mg/0.25 00 :00 skin l gram (0.1 daily. %) gel in packet betamethaso 2020- No Apply a Me thodi ne, 08-[address] augmented, 00:00: 00:00 sized Hospi ta (Diprolene) 00 :00 amount 2 l 0.05 % times ointment daily for the next 4-6 weeks betamethaso 2020- No Apply a Me thodi ne, 08-[address] augmented, 00:00: 00:00 sized Hospi ta (Diprolene) 00 :00 amount 2 l 0.05 % times ointment daily for the next 4-6 weeks ergocalcife 2020- No [id number] Q7D Take Met hodi rol 06-13 50,000 [address] (VITAMIN 00:00: 00:00 Units by Hosp adama D2) 50,000 00 :00 mouth once l unit a week. capsule ergocalcife 2020- No [id number] Q7D Take Met hodi rol 206-30 50,000 st (VITAMIN 00:00: 00:00 Units by Hosp adama D2) 50,000 00 :00 mouth once l unit a week. capsule Pentosan 2014-05 Yes 100mg Take 100 Bayl or Polysulfate 0-28 mg by Pavo Sodium 00:00: mouth 3 of (ELMIRON) 00 times Medicin 100 MG CAPS daily. e Pentosan 2015- Yes 100mg Take 100 Bayl or Polysulfate 0-28 mg by Pavo Sodium 00:00: mouth 3 of (ELMIRON) 00 times Medicin 100 MG CAPS daily. e hydrOXYzine 2015-0 Yes 25mg Take 1 Tab [facility] (ATARAX) 25 8-11 by mouth Pio ege MG tablet 00:00: at of 00 bedtime. Medicin e hydrOXYzine 2015-0 Yes 25mg Take 1 Tab [facility] (ATARAX) 25 8-11 by mouth Pio ege MG tablet 00:00: at of 00 bedtime. Medicin e Immunizations Ordered Immunization Filled Immunization Date Status Commen ts Source Name Name Influenza [facility]- 2022-02-02 Completed [facility] 00:00:00 of Medicine [facility] 2020-10-22 Completed Method[facility] t [facility]14 Completed Methodis t MRNA VACCINATION 00:00:00 [facility] FLUZONE [facility] 2019-01-29 Completed [facility] 00:[facility]:00 [facility] Influenza, 2016-07-07 Completed [facility] Unspecified 00:00:00 Hospital Vital Signs Vital Name Observation Time Observation Value Comments Source Systolic blood 2022-06-28 14:32:00 141 mm[Hg] [facility] Medicine Diastolic blood 2022-06-28 14:32:00 82 mm[Hg] [facility] Medicine Heart rate 2022-06-28 14:32:00 97 /min [facility] Body height 2022-06-28 14:31:[address] [facility] Body weight 2022-06-28 14:31:[address] [facility] BMI 2022-06-28 14:31:00 37.76 kg/m2 [facility] Systolic blood 2022-05-30 16:14:00 125 mm[Hg] [facility] Medicine Diastolic blood 2022-05-30 16:14:00 75 mm[Hg] [facility] Medicine Heart rate 2022-05-30 16:14:00 79 /min [facility] Medicine Body height 2022-05-30 16:14:00 162.6 cm [facility] Body weight 2022-05-30 16:14:00 99.791 kg [facility] BMI 2022-05-30 16:14:00 37.76 kg/m2 [facility] Systolic blood 2021-08-11 23:41:00 135 mm[Hg] Univer sity of pressure [facility] Diastolic blood 2021-08-11 23:41:00 88 mm[Hg] Unive rsity of pressure [facility] Branch Heart rate 2021-08-11 23:41:00 84 /min Universi ty of [facility] Branch Body temperature 2021-08-11 23:41:00 36.67 Ale Univ ersity of [facility] Branch Respiratory rate 2021-08-11 23:41:00 18 /min Univ ersity of [facility] Body height 2021-08-11 23:41:00 162.6 cm Universi ty of [facility] Body weight 2021-08-11 23:41:00 105.098 kg Universi ty of [facility] BMI 2021-08-11 23:41:00 39.77 kg/m2 Universi ty of [facility] Branch Oxygen saturation in 2021-08-11 23:41:00 97 /min University of Arterial blood by [facility] Pulse oximetry Branch Systolic blood 2021-04-02 15:10:00 128 mm[Hg] Univer sity of pressure [facility] Branch Diastolic blood 2021-04-02 15:10:00 75 mm[Hg] Unive rsity of pressure [facility] Heart rate 2021-04-02 15:10:00 101 /min Universi ty of [facility] Body temperature 2021-04-02 15:10:00 36.67 Ale Univ ersity of [facility] Branch Respiratory rate 2021-04-02 15:10:00 18 /min Univ ersity of [facility] Branch Body height 2021-04-02 15:10:00 162.6 cm Universi ty of [facility] Body weight 2021-04-02 15:10:00 100.699 kg Universi ty of [facility] BMI 2021-04-02 15:10:00 38.11 kg/m2 Universi ty of [facility] Branch Oxygen saturation in 2021-04-02 15:10:00 100 /min University of Arterial blood by [facility] Pulse oximetry Branch Body height 2020-07-28 18:10:00 165.1 cm Universi ty of [facility] Body weight 2020-07-28 18:10:00 95.255 kg Universi ty of [facility] BMI 2020-07-28 18:10:00 34.95 kg/m2 Universi ty of [facility] Body height 2020-07-28 18:10:00 165.1 cm Universi ty of [facility] Body weight 2020-07-28 18:10:00 95.255 kg Universi ty of [facility] BMI 2020-07-28 18:10:00 34.95 kg/m2 Universi ty of [facility] Systolic blood 2020-06-12 16:59:00 97 mm[Hg] Univer sity of pressure [facility] Diastolic blood 2020-06-12 16:59:00 66 mm[Hg] Unive rsity of pressure [facility] Heart rate 2020-06-12 16:59:00 90 /min Universi ty of [facility] Body temperature 2020-06-12 16:59:00 37.56 Ale Univ ersity of [facility] Respiratory rate 2020-06-12 16:59:00 22 /min [facility] Oxygen saturation in 2020-06-12 16:59:00 96 /min University of Arterial blood by [facility] Pulse oximetry Branch Body weight 2020-06-12 15:08:00 97.523 kg Universi ty [facility] Systolic blood 2022-07-27 14:27:00 118 mm[Hg] Method ist [facility] pressure Diastolic blood 2022-07-27 14:27:00 79 mm[Hg] Metho dist [facility] pressure Heart rate 2022-07-27 14:27:00 73 /[facility] 2022-07-27 14:27:00 162.6 [facility] Body weight 2022-07-27 14:27:00 100.245 [facility] BMI 2022-07-27 14:27:00 37.93 kg/m2 [facility] Respiratory rate 2022-03-21 22:50:00 18 /min [facility] Oxygen saturation in 2022-03-21 22:50:00 98 /min [facility] Arterial blood by Pulse oximetry Body temperature 2022-03-21 19:52:18 37 Ale [facility] Systolic blood 2021-05-19 18:50:00 123 mm[Hg] [facility] Di[facility] blood 2021-05-19 18:50:00 76 mm[Hg] [facility] pressure Heart rate 2021-05-19 18:50:00 42 /min [facility] Body temperature 2021-05-19 18:50:00 37.06 Ale [facility] Body height 2021-05-19 18:50:00 165.1 cm [facility] Body weight 2021-05-19 18:50:00 101.152 kg [facility] BMI 2021-05-19 18:50:00 37.11 kg/m2 [facility] Respiratory rate 2020-09-13 15:48:00 20 /min [facility] Oxygen saturation in 2020-09-13 15:48:00 98 /min [facility] Arterial blood by Pulse oximetry Procedures Procedure Date / Time Performing Source Performed Clinician [facility] PATIENT FINANCIAL POLICY 2022-06-30 Doctor Unassigned, [facility] 19:05:30 Jamul [facility] PATIENT QUESTIONNAIRE 2022-06-14 Doctor Unassigned, [facility] 06:01:00 Jamul [facility] POCT URINALYSIS DIPSTICK 2022-05-30 Christal Marquez [facility] 00:00:00 P Medicine ROYCE,POST-VOID RES,US,NON-IMG 2022-05-30 Christal Marquez [facility] 00:00:00 P Medicine POCT URINALYSIS DIPSTICK 2022-05-30 [facility] 00:00:00 Medicine ROYCE,POST-VOID RES,US,NON-IMG 2022-05-30 [facility] 00:00:00 Medicine ESTRADIOL LEVEL 2022-04-14 [facility]az [facility] 22:08:00 ESTRADIOL LEVEL 2022-04-05 [facility] Hospit al 17:17:00 DEHYDROEPIANDOSTERONE SULFATE 2022-04-05 [facility], [facility] 17:17:00 TESTOSTERONE 2022-04-05 [facility], [facility] Hospit al 17:17:00 TESTOSTERONE FREE 2022-04-05 [facility], [facility] ital 17:17:00 PROLACTIN LEVEL 2022-04-05 [facility], [facility] 17:17:00 FOLLICLE STIMULATING HORMONE 2022-04-05 [facility], [facility] 17:17:00 PROGESTERONE, IMMUNOASSAY 2022-04-05 [facility], [facility] 17:17:00 T4, FREE 2022-04-05 [facility], [facility] 17:17:00 THYROID STIMULATING HORMONE 2022-04-05 [facility], [facility] 17:17:00 URINE CULTURE 2022-03-21 [facility] 20:51:00 [place] CBC WITH PLATELET AND 2022-03-21 [facility] DIFFERENTIAL 20:50:00 [place] COMPREHENSIVE METABOLIC PANEL 2022-03-21 [facility] 20:50:00 Rach ESTIMATED GFR 2022-03-21 [facility] al 20:50:00 [place] URINALYSIS 2022-03-21 [facility] 20:01:00 Rach ECG 12-LEAD 2021-12-14 [facility] 17:05:32 Edit TTE CONGENITAL ANOMALY 2021-12-14 [facility] COMPLETE, WO CONTRAST ([id number]) 15:26:08 Edit CBC WITH PLATELET AND 2021-10-24 [facility] DIFFERENTIAL 09:18:00 BASIC METABOLIC PANEL 2021-10-24 [facility] 09:18:00 C-REACTIVE PROTEIN 2021-10-24 [facility] pital 09:18:00 ESTIMATED GFR 2021[facility]10-24 [facility]00 COVID-19 QUALITATIVE RT-PCR 2021-10-23 [facility] 16:12:00 CBC WITH PLATELET AND 2021-10-23 [facility] DIFFERENTIAL 09:36:00 BASIC METABOLIC PANEL 2021-10-23 [facility] 09:36:00 MAGNESIUM LEVEL 2021-10-23 [facility] Hospit al 09:36:00 C-REACTIVE PROTEIN 2021-10-23 [facility] pital 09:36:00 ESTIMATED GFR 2021-10-23 [facility] 09:[facility]00 BLOOD CULTURE, AEROBIC & 2021-10-22 [facility] [place] ANAEROBIC 21:56:00 ZZCOVID-19 ANTI-SPIKE IGG 2021-10-22 [facility] ANTIBODY TITER 21:55:00 ZZCOVID-19 SEROLOGY PATIENT 2021-10-22 [facility] SURVEILLANCE 21:55:00 PARTIAL THROMBOPLASTIN TIME 2021-10-22 [facility] (PTT) 19:49:00 Marlene Virant PROTHROMBIN TIME WITH INR 2021-10-22 [facility] 19:49:00 Marlene Virant URINE CULTURE 2021-10-22 [facility] 18:25:00 Marlene Virant URINALYSIS SCREEN AND 2021-10-22 [facility] MICROSCOPY, WITH REFLEX TO 18:25:00 Marlene Virant CULTURE HCG QUALITATIVE, URINE SCREEN 2021-10-22 [facility] 18:25:[address] ABDOMEN PELVIS WO CONTRAST 2021-10-22 [facility] 18:03:40 Marlene Virant COMPREHENSIVE METABOLIC PANEL 2021-10-22 [facility] 17:36:00 Marlene Virant CBC WITH PLATELET AND 2021-10-22 [facility] DIFFERENTIAL 17:36:00 Marlene Virant LIPASE LEVEL 2021-10-22 [facility] 17:36:00 Marlene Virant ESTIMATED GFR 2021-10-22 Clar[facility] Delarosa [facility] 17:36:00 [facility] V[facility]VG+) 2021-10-17 Ibrahima Trinh [facility] 22:05:00 Sadie CV CARDIAC EVENT MONITOR 2021-10-14 [facility] 00:00:00 Edit LIPID PANEL 2021-09-19 [facility] Hospit al 12:26:00 Edit CBC WITH PLATELET AND 2021-09-19 [facility] DIFFERENTIAL 12:26:00 Edit B NATRIURETIC PEPTIDE 2021-09-19 [facility] 12:26:00 Edit COMPREHENSIVE METABOLIC PANEL 2021-09-19 [facility] 12:26:00 Edit HEMOGLOBIN A1C 2021-09-19 [facility] Hospit al 12:26:00 Edit ECG 12-LEAD 2021-09-16 [facility] Hospit al 15:39:22 Edit ECG ED PRELIMINARY 2021-09-15 [facility] INTERPRETATION 21:28:30 CT HEAD WO CONTRAST 2021-09-15 Markos Camacho [facility] 20:09:57 ECG 12-LEAD 2021-09-15 [facility] Hos pital 19:32:03 ECG ED PRELIMINARY 2021-09-12 [facility] ospital INTERPRETATION 00:42:22 [facility] CBC WITH PLATELET AND 2021-09-11 [facility] DIFFERENTIAL 23:09:00 [facility] COMPREHENSIVE METABOLIC PANEL 2021-09-11 [facility] 23:09:00 [facility] TROPONIN, I-STAT 2021-09-11 [facility] pital 23:09:00 Chukwuemeka B NATRIURETIC PEP, I-STAT 2021-09-11 [facility] 23:09:00 Chukwuemeka ESTIMATED GFR 2021-09-11 [facility] Garcia [facility]osp ital 23:09:00 M. ECG 12-LEAD 2021-09-11 Alexi Garner [facility] 22:53:41 Jimi ASSIGNMENT OF BENEFITS 2021-08-11 Doctor Unassigned, Univer sity of 23:25:56 Jamul [facility] XR HIPS 3 VW LEFT 2021-04-02 [facility] o f 15:36:00 [facility] POCT GRP A STREP (MOLECULAR) 2021-04-02 [facility] niversity of 15:22:00 [facility] ESTRADIOL LEVEL 2021-02-23 Jaz Bean Hospit al 14:17:00 MAMMO BREAST SCREEN 2020-12-24 Jaz Bean spital TOMOSYNTHESIS BILATERAL 17:42:52 CT CARDIAC OVERREAD 2020-09-13 Herbert Randolph Ho spital 16:18:52 CV CTA CORONARY ARTERIES W 2020-09-13 Herbert Randolph [facility] CONTRAST 16:14:54 POC CREATININE 2020-09-13 Herbert Randolph Hospit al 15:34:00 ESTIMATED GFR 2020-09-13 Herbert Randolph Hospit al 15:34:00 TTE COMPLETE, W CONTRAST, W 2020-09-13 [facility] D[facility] ([id number][facility] 15:14:12 BONE DENSITY 2020-09-10 Jaz Bean Hospit al 19:58:08 TESTOSTERONE FREE 2020-08-30 Jaz Bean Hosp ital 19:51:00 TESTOSTERONE 2020-08-30 Jaz Bean Hospit al 19:51:00 THINPREP TIS PAP AND HPV MRNA 2020-08-30 Jaz Bean [facility] E6/E7 REFLEX HPV 16,18/45 19:49:00 ECG 12-LEAD 2020-08-24 Herbert Randolph Hospit al 18:25:08 INSURANCE CORRESPONDENCE 2020-08-02 Doctor Unassigned, Univ ersity of 05:01:00 Jamul [facility] REFERRAL- REQUEST/RESPONSE 2020-07-30 Doctor Unassigned, Un iversity of 05:01:00 Jamul [facility] XR SHOULDER 2+ VW RIGHT 2020-07-28 [place] [facility] of 17:49:27 [facility] ASSIGNMENT OF BENEFITS 2020-07-28 Doctor Unassigned, Univer sity of 17:30:09 Jamul [facility] XR CHEST 2 VW 2020-06-30 Mansoor Randolph [facility] 15:52:06 [id number] CONSENT 2020-06-12 Doctor Unassigned, University o f 06:01:00 Jamul [facility] Plan of Care Planned Activity Planned Date Details Comments Source Future Scheduled 2022-07-28 Pneumococcal Vaccine: Me thodist Test 08:21:19 Pediatrics (0 to 5 Years) Ho spital and At-Risk Patients (6 to 64 Years) (1 - PCV) [code = Pneumococcal Vaccine: Pediatrics (0 to 5 Years) and At-Risk Patients (6 to 64 Years) (1 - PCV)] Future Scheduled 2022-07-28 Hepatitis C screening [facility] Test 08:21:19 (procedure) [code = Hospital [id number]] Future Scheduled 2022-07-28 SHINGLES VACCINES (1 of [facility] 08:21:19 2) [code = SHINGLES Hospital VACCINES (1 of 2)] Future Scheduled 2022-07-28 INFLUENZA VACCINE [code = [facility] 08:21:19 INFLUENZA VACCINE] Hospital Future Scheduled 2022-07-28 BREAST CANCER SCREENING [facility] 08:21:19 [code = BREAST CANCER Hospit al SCREENING] Future Scheduled 2022-07-28 COLONOSCOPY SCREENING [facility] Test 08:21:19 [code = COLONOSCOPY Hospital SCREENING] Future Scheduled 2022-07-28 Screening for malignant [facility] 08:21:19 neoplasm of cervix Hospital (procedure) [code = 090520643] Future Scheduled 2022-06-28 TETANUS SHOT (ADULT) [facility] of Test 09:17:19 [code = TETANUS SHOT Medicin e (ADULT)] Future Scheduled 2022-06-28 BMI Follow Up Plan [code [facility] of Test 09:17:19 = BMI Follow Up Plan] Medici ne Future Scheduled 2022-06-28 Human immunodeficiency [employer] of Test 09:17:19 virus screening Medicine (procedure) [code = 968966916] Future Scheduled 2022-06-28 Hepatitis C screening [facility] of Test 09:17:19 (procedure) [code = Medicine [id number]] Future Scheduled 2022-06-28 Screening for malignant [facility] of Test 09:17:19 neoplasm of cervix Medicine (procedure) [code = 562811378] Future Scheduled 2022-06-28 ZOSTER VACCINE (1 of 2) [facility] of Test 09:17:19 [code = ZOSTER VACCINE (1 Me dicine of 2)] Future Scheduled 2022-06-28 COVID-19 Vaccine (3 - Ba [facility] of Test 09:17:19 Booster for Moderna Medicine series) [code = COVID-19 Vaccine (3 - Booster for Moderna series)] Future Scheduled 2022-06-28 Screening for malignant [facility] of Test 09:17:19 neoplasm of breast Medicine (procedure) [code = 574604346] Future Scheduled 2022-06-28 Screening for malignant [facility] of Test 09:17:19 neoplasm of colon Medicine (procedure) [code = 626271044] Future Scheduled 2022-05-30 Screening for malignant [facility] of Test 10:14:37 neoplasm of colon Medicine (procedure) [code = 115643389] Future Scheduled 2022-05-30 TETANUS SHOT (ADULT) [facility] of Test 10:14:37 [code = TETANUS SHOT Medicin e (ADULT)] Future Scheduled 2022-05-30 Human immunodeficiency B [facility] of Test 10:14:37 virus screening Medicine (procedure) [code = 991210539] Future Scheduled 2022-05-30 Hepatitis C screening [facility] of Test 10:14:37 (procedure) [code = Medicine 293894195] Future Scheduled 2022-05-30 Screening for malignant [facility] of Test 10:14:37 neoplasm of cervix Medicine (procedure) [code = 971395562] Future Scheduled 2022-05-30 ZOSTER VACCINE (1 of 2) [facility] of Test 10:14:37 [code = ZOSTER VACCINE (1 Me dicine of 2)] Future Scheduled 2022-05-30 COVID-19 Vaccine (3 - Ba [facility] of Test 10:14:37 Booster for Moderna Medicine series) [code = COVID-19 Vaccine (3 - Booster for Moderna series)] Future Scheduled 2022-05-30 FLU VACCINE > 6 MONTHS B [facility] [employer] of Test 10:14:37 [code = FLU VACCINE > 6 Medi cine MONTHS] Future Scheduled 2022-05-30 Screening for malignant [facility] of Test 10:14:37 neoplasm of breast Medicine (procedure) [code = 662119752] Future Scheduled 2021-06-07 COVID-19 VACCINE (1) Met hodist Test 14:17:59 [code = COVID-19 VACCINE Hos pital (1)] Future Scheduled 2021-06-07 Hepatitis C screening [facility] Test 14:17:59 (procedure) [code = Hospital [id number]] Future Scheduled 2021-06-07 SHINGLES VACCINES (#1) M ethodist Test 14:17:59 [code = SHINGLES VACCINES Ho spital (#1)] Future Scheduled 2021-06-07 INFLUENZA VACCINE [code = [facility] 14:17:59 INFLUENZA VACCINE] Hospital Future Scheduled 2021-06-07 BREAST CANCER SCREENING [facility] 14:17:59 [code = BREAST CANCER Hospit al SCREENING] Future Scheduled 2021-06-07 COLONOSCOPY SCREENING [facility] Test 14:17:59 [code = COLONOSCOPY Hospital SCREENING] Future Scheduled 2021-06-07 Screening for malignant [facility] 14:17:59 neoplasm of cervix Hospital (procedure) [code = 424519207] Future Scheduled 2021-06-07 COVID-19 VACCINE (1) Met hodist Test 14:17:59 [code = COVID-19 VACCINE Hos pital (1)] Future Scheduled 2021-06-07 Hepatitis C screening [facility] Test 14:17:59 (procedure) [code = Hospital 329965968] Future Scheduled 2021-06-07 SHINGLES VACCINES (#1) M ethodist Test 14:17:59 [code = SHINGLES VACCINES Ho spital (#1)] Future Scheduled 2021-06-07 INFLUENZA VACCINE [code = [facility] 14:17:59 INFLUENZA VACCINE] Hospital Future Scheduled 2021-06-07 BREAST CANCER SCREENING [facility] 14:17:59 [code = BREAST CANCER Hospit al SCREENING] Future Scheduled 2021-06-07 COLONOSCOPY SCREENING [facility]ist Test 14:17:59 [code = COLONOSCOPY Hospital SCREENING] Future Scheduled 2021-06-07 Screening for malignant [facility] 14:17:59 neoplasm of cervix Hospital (procedure) [code = 136689279] Encounters Start End Encounter Admission Attending Care Care Encounter Source Date/Time Date/Time Type Type Clinicians Facility Department ID 2022-07-27 2022-07-27 Office Jaz Bean [id number] Methodi 09:10:00 13:03:[id number] [id number] Hospit a .[id number] l .8 2022-07-27 2022-07-27 Outpatient JAZ [facility] [id number] [place] 00:00:00 00:00:[address] 2022-06-30 2022-06-30 Outpatient Ann Marie TUCKER [facility] [id number] Univers 14:00:00 17:01:26 REAGAN walker of [facility] 2022-06-30 2022-06-30 [facility] [id number] Univers 14:00:00 17:01:26 Visit Reagan ALEX [id number] i ty of [id number] [id number] Md dical NAL 098 [facility] 2022-06-30 2022-06-30 Orders Doctor LEONARD [id number] Univers 00:00:00 00:00:00 Only Unassigned, ESTELITA [id number] ity of Jamul DELTA [facility] 4.2.7.2.[phone] [facility] marvin [address] 2022-06-28 2022-06-28 Office DARNELL ALEXANDRA 1.2.840.114 [id number] [facility] 08:27:15 11:51:11 Visit AMBULATOR 350.1.13.21 College Y 0.2.7.2.[id number] [facility] herminio 300 e 2022-06-14 2022-06-14 Outpatient Ann Marie TUCKER [facility] [id number] Univers 10:00:00 11:05:11 REAGAN ity of [facility] 2022-06-14 2022-06-14 Orders Doctor LEONARD 1.2.840.114 [id number] Univers 00:00:00 00:00:00 Only Unassigned, ESTELITA 350.1.13.10 ity of Jam[facility] 4.2.7.2.686 Xander as [id number] [address] 2022-06-01 2022-06-01 Telephone Scotty, 1.2.840.1 [id number] 2100 643365 Methodi 00:00:00 00:00:[address] 3.430.2.7 Hospit a .3.630463 l .8 2022-05-31 2022-05-31 Orders Cecy 1.2.840.1 [id number] 2100 942486 Methodi 00:00:00 00:00:00 Only Valentina 21562.1.[address] 3.430.2.7 Hospit a .3.734173 l .8 2022-05-31 2022-05-31 Orders Cecy, 1.2.840.1 [id number] 2100 878701 Methodi 00:00:00 00:00:00 Only Valentina 47806.1.[address] 3.430.2.7 Hospit a .3.721095 l .8 2022-05-30 2022-05-30 Office NISA MARQUEZ 1.2.840.114 [id number] 3 [facility] 09:47:18 11:54:53 Visit CHRISTAL AMBULATOR 350.1.13.21 College Y 0.2.7.2.686 of 048.2516779 [facility] 300 e 2022-05-16 2022-05-16 Telephone Jaz Bean 1.2.840.1 [id number] Methodi 00:00:00 00:00:[address] 3.430.2.7 Hospit a .3.117408 l .8 2022-04-12 2022-04-12 Telemedici Jaz Bean 1.2.840.1 [id number] Methodi 14:00:00 14:10:[address] 3.430.2.7 Hospit a .3.473730 l .8 2022-04-12 2022-04-12 Outpatient JAZ BEAN [facility] 822 [id number] [place] 00:00:00 00:00:[address] 2022-04-04 2022-04-04 Telephone Jaz Bean 1.2.840.1 [id number] Methodi 00:00:00 00:00:[address] 3.430.2.7 Hospit a .3.176087 l .8 2022-03-21 2022-03-21 Emergency Meng, 1.2.840.1 [id number] 2100 387860 Methodi 13:47:00 16:52:[address] [place] 3.430.2.7 Hospit a .3.045794 l .8 2022-03-21 2022-03-21 Emergency [facility] 064 [id number] 17 [place] 00:00:00 00:00:[address] 2022-03-21 2022-03-21 Travel 1.2.840.1 1.2.893.378 9708 215930 Methodi 00:00:00 00:00:[address] 3.430.2.7 0.2.7.3.698 spita .3.662555 084.8 l .8 2022-03-17 2022-03-17 Telephone Prieto, 1.2.840.1 [id number] 2099 687473 Methodi 00:00:00 00:00:[address] 3.430.2.7 Hospit a .3.127300 l .8 2021-12-14 2022-02-28 Office [place], 1.2.840.1 [id number] 241903 2551 Methodi 11:30:00 00:47:31 Visit Julianne 48506.1.[address] Edit 3.430.2.7 Hospit a .3.248657 l .8 2022-01-17 2022-01-17 Telephone Scotty, 1.2.840.1 [id number] 2100 456187 Methodi 00:00:00 00:00:[address] 3.430.2.7 Hospit a .3.320419 l .8 2022-01-11 2022-01-11 Office Chaves, 1.2.840.1 [id number] 134725 2792 Methodi 13:45:00 15:15:46 Visit Laura Marinelli 66418.1.[address] 3.430.2.7 Hospit a .3.764709 l .8 2022-01-11 2022-01-11 [facility] [id number] 025 [place] 00:00:00 00:00:00 LAURA [address] 2022-01-11 2022-01-11 Travel 1.2.840.1 1.2.983.915 9292 000994 Methodi 00:00:00 00:00:[address] 3.430.2.7 0.2.7.3.698 Ho spita .3.144826 084.8 l .8 2021-12-14 2021-12-14 Outpatient [facility] [id number] 556 [place] 00:00:00 00:00:[address] 2021-12-14 2021-12-14 Outpatient [facility] [id number] 556 [place] 00:00:00 00:00:[address] 2021-12-14 2021-12-14 Travel 1.2.840.1 1.2.039.715 3107 462255 Methodi 00:00:00 00:00:[address] 3.430.2.7 0.2.7.3.698 Ho spita .3.054005 084.8 l .8 2021-09-162021-11-12 Office [place], 1.2.840.1 [id number] 126363 4139 Methodi 11:00:00 00:13:16 Visit Julianne 32727.1.[address] Edit 3.430.2.7 Hospit a .3.826609 l .8 2021-10-28 2021-10-28 Telephone Jaz Bean 1.2.840.1 [id number] Methodi 00:00:00 00:00:[address] 3.430.2.7 Hospit a .3.183681 l .8 2021-10-22 2021-10-24 [facility] Antonino Aponte 1.2.840.1 [id number] Methodi 12:21:00 15:44:00 Encounter Enid Luna 42179.1.[address] 3.430.2.7 Hospit a .3.112655 l .8 2021-10-22 2021-10-24 Inpatient ENID LUNA [facility] 064 2100 [id number] [place] 00:00:00 00:00:[address] 2021-10-22 2021-10-22 Travel 1.2.840.1 1.2.922.949 9414 980287 Methodi 00:00:00 00:00:[address] 3.430.2.7 0.2.7.3.698 spita .3.188361 084.8 l .8 2021-10-17 2021-10-17 Office Gayathri 1.2.840.1 [id number] 2100 533326 Methodi 15:00:00 16:46:10 Visit Ibrahima Noel 81774.1.1 042 s t 3.430.2.7 Hospit a .3.427777 l .8 2021-10-17 2021-10-17 [facility] 31752 21067 [place] 00:00:00 00:00:[address] 2021-10-17 2021-10-17 Travel 1.2.840.1 1.2.423.678 5246 063070 Methodi 00:00:00 00:00:[address] 3.430.2.7 0.2.7.3.698 Ho spita .3.156525 084.8 l .8 2021-10-14 2021-10-14 Orders Briggs, 1.2.840.1 [id number] 826720 8568 Methodi 00:00:00 00:00:00 Only Julianne 44813.1.[address] Edit 3.430.2.7 Hospit a .3.598258 l .8 2021-10-06 2021-10-06 Travel 1.2.840.1 1.2.943.847 9858 894812 Methodi 00:00:00 00:00:[address] 3.430.2.7 0.2.7.3.698 Ho spita .3.419170 084.8 l .8 2021-09-16 2021-09-16 Outpatient [place] [id number] 922 [place] 00:00:00 00:00:00 JULIANNE [address] 2021-09-15 2021-09-[address] [facility], 1.2.840.1 [id number] 2100 933403 Methodi 15:53:00 21:30:[address] Jhonatan 3.430.2.7 Hospit a .3.248804 l .8 2021-09-15 2021-09-15 Emergency [facility] [place] 064 [id number] 43 [place] 00:00:00 00:00:00 KATIE [address] 2021-09-14 2021-09-14 Telephone Briggs, 1.2.840.1 [id number] 2099 560330 Methodi 00:00:00 00:00:[address] Edit 3.430.2.7 Hospit a .3.134027 l .8 2021-09-14 2021-09-14 Travel 1.2.840.1 1.2.704.793 2087 878463 Methodi 00:00:00 00:00:[address] 3.430.2.7 0.2.7.3.698 Ho spita .3.653602 084.8 l .8 2021-09-12 2021-09-12 Telephone Lai, 1.2.840.1 [id number] 2099 401405 Methodi 00:00:00 00:00:00 Spenceria D [address]187.1.[address] 3.430.2.7 Hospit a .3.480244 l .8 2021-09-12 2021-09-12 Travel 1.2.840.1 1.2.004.282 8849 367244 Methodi 00:00:00 00:00:[address] 3.430.2.7 0.2.7.3.698 Ho spita .3.233784 084.8 l .8 2021-09-11 2021-09-11 Emergency [facility], 1.2.840.1 [id number] 2 [id number] Methodi 17:50:00 19:54:[address] [facility] 3.430.2.7 Ho spita .3.701947 l .8 2021-09-11 2021-09-11 Emergency [facility] 064 12396 65572 [place] 00:00:00 00:00:00 ALEXI [address] 2021-08-19 2021-08-19 Telephone Nadeem [facility] 1.2.227.770 7380 7043 [facility] 00:00:00 00:00:00 [facility] 350.1.13.10 it y [facility] 4.2.7.2.686 Xander as JENNY?BLEA [phone] [address] MEDICAL OFFICE BUILDING 2021-08-11 2021-08-11 Outpatient R NADEEM [facility] [id number] 151 [facility] 18:40:00 19:11:24 [facility] 2021-08-11 2021-08-11 Urgent [facility] 1.2.840.114 123140 82 Univers 18:40:00 19:11:24 Care Mauricio HEALTH 350.1.13.10 it y of [facility] 4.2.7.2.686 Xander as JENNY?BLEA 170.2384961 [facility] [address] MEDICAL OFFICE BUILDING 2021-08-11 2021-08-11 Orders Doctor LEONARD 1.2.840.114 [id number] 10 Univers 00:00:00 00:00:00 Only Unassigned, ESTELITA 350.1.13.10 ity of Jamul [facility] 4.2.7.2.686 Xander as 249.4719451 [address] 2021-05-19 2021-05-20 Office [facility], 1.2.840.1 [id number] 712481 5916 Methodi 12:27:37 09:34:49 Visit Laura Marinelli 32619.1.[address] 3.430.2.7 Hospit a .3.520059 l .8 2021-05-19 2021-05-19 Travel 1.2.840.1 1.2.665.497 8560 480797 Methodi 00:00:00 00:00:[address] 3.430.2.7 0.2.7.3.698 Ho spita .3.566470 084.8 l .8 2021-04-02 2021-04-02 Hospital [facility] 1.2.071.053 5404 4 Univers 09:22:50 23:59:00 Encounter Jany HEALTH 350.1.13.10 ity of [place] 4.2.7.2.686 Xander as JENNY?BLEA 135.1906550 [facility] [address] MEDICAL OFFICE BUILDING 2021-04-02 2021-04-02 Outpatient R [facility] [id number] 2361 Univers 11:00:00 09:39:15 JANY ity o f [facility] 2021-04-02 2021-04-02 Urgent [facility] 1.2.840.114 14278 875 Univers 09:02:51 09:39:15 Care [facility] 350.1.13.10 i ty of [place] 4.2.7.2.686 Xander as JENNY?BLEA 197.5977653 Md starrdilip [facility] [address] MEDICAL OFFICE BUILDING 2021-02-21 2021-02-21 Telephone Jaz Bean 1.2.840.1 [id number] Methodi 00:00:00 00:00:[address] 3.430.2.7 Hospit a .3.301721 l .8 2021-02-14 2021-02-14 Telephone Cecy, 1.2.840.1 [id number] 21 [id number] Methodi 00:00:00 00:00:[address] 3.430.2.7 Hospit a .3.793588 l .8 2020-12-29 2020-12-29 Telephone Jaz Bean 1.2.840.1 344808238 [id number] Methodi 00:00:00 00:00:[address] 3.430.2.7 Hospit a .3.898639 l .8 2020-12-24 2020-12-24 Orders Romeo, 1.2.840.1 [id number] 50499 43569 Methodi 00:00:00 00:00:00 Only Ivette 35005.1.[address] 3.430.2.7 Hospit a .3.249021 l .8 2020-12-14 2020-12-14 Letter [facility] 1.2.295.946 5136 4260 Univers 00:00:00 00:00:00 (Out) [facility] 350.1.13.10 it y of Surgical 4.2.7.2.686 Xander as Specialti 739.4993096 [facility] 2020-12-14 2020-12-14 [facility] 1.2.840.114 86 626007 Univers 00:00:00 00:00:00 [facility] 350.1.13.10 it y of Surgical 4.2.7.2.686 Xander as Specialti 341.8225052 Me dical es [address] [place] 2020-12-13 2020-12-13 Laboratory Lab, Adc Fam Pob I [facility] 1.2. 840.114 [id number] Univers 15:41:14 16:01:14 Only Mariana Brock [facility] 350.1.13.10 ity of [place] 4.2.7.2.686 Xander as Professio 202.9912334 Md dical nal [address] Office Building One 2020-12-13 2020-12-13 Outpatient R TODD [facility] 41067 34695 Univers 15:40:00 15:40:00 MARIANA ity [facility] 2020-11-30 2020-11-30 Telemedici Jaz Bean 1.2.840.1 [id number] Methodi 15:58:24 16:19:[address] 3.430.2.7 Hospit a .3.657312 l .8 2020-11-15 2020-11-15 Telephone Jaz Bean 1.2.840.1 [id number] Methodi 00:00:00 00:00:[address] 3.430.2.7 Hospit a .3.829862 l .8 2020-09-13 2020-09-13 [facility], 1.2.840.1 [id number] 11014 04622 Methodi 11:18:50 23:59:00 Encounter Herbert Herman 22088.1.[address] 3.430.2.7 Hospit a .3.035555 l .8 2020-09-13 2020-09-13 [facility] 1.2.840.1 [id number] 51129 35522 Methodi 09:05:17 11:17:00 Encounter Herbert Herman 84703.1.[address] 3.430.2.7 Hospit a .3.022157 l .8 2020-09-13 2020-09-13 Outpatient RANDOLPH, [facility] [id number] 891 [place] 00:00:00 00:00:[address] HERBERT [address] 2020-09-13 2020-09-13 Travel 1.2.840.1 1.2.364.333 5571 205713 Methodi 00:00:00 00:00:[address] 3.430.2.7 0.2.7.3.698 Ho spita .3.057442 084.8 l .8 2020-09-10 2020-09-10 Outpatient JAZ BEAN [facility] 168 [id number] [place] 00:00:00 00:00:[address] 2020-09-05 2020-09-05 Refill Jaz Bean 1.2.840.1 [id number] 21 [id number] Methodi 00:00:00 00:00:[address] 3.430.2.7 Hospit a .3.680737 l .8 2020-09-02 2020-09-02 Telephone Jaz Bean 1.2.840.1 [id number] Methodi 00:00:00 00:00:[address] 3.430.2.7 Hospit a .3.014318 l .8 2020-09-02 2020-09-02 Orders Jaz Bean 1.2.840.1 [id number] 21 [id number] Methodi 00:00:00 00:00:[address] 3.430.2.7 Hospit a .3.015184 l .8 2020-09-01 2020-09-01 Telephone Jaz Bean 1.2.840.1 [id number] Methodi 00:00:00 00:00:[address] 3.430.2.7 Hospit a .3.079981 l .8 2020-08-31 2020-08-31 Travel 1.2.840.1 1.2.830.197 2964 413981 Methodi 00:00:00 00:00:[address] 3.430.2.7 0.2.7.3.698 Ho spita .3.608270 084.8 l .8 2020-08-30 2020-08-30 Office Jaz Bean 1.2.840.1 [id number] 21 [id number] Methodi 13:33:46 14:58:[address] 3.430.2.7 Hospit a .3.161286 l .8 2020-08-30 2020-08-30 Travel 1.2.840.1 1.2.202.866 4969 682613 Methodi 00:00:00 00:00:[address] 3.430.2.7 0.2.7.3.698 Ho spita .3.879550 084.8 l .8 2020-08-24 2020-08-24 Office Beena 1.2.840.1 [id number] 067097 3838 Methodi 12:57:10 16:34:22 Visit Herbert Herman 66708.1.[address] 3.430.2.7 Hospit a .3.704881 l .8 2020-08-24 2020-08-24 Travel 1.2.840.1 1.2.036.991 3674 205685 Methodi 00:00:00 00:00:[address] 3.430.2.7 0.2.7.3.698 Ho spita .3.552670 084.8 l .8 2020-08-03 2020-08-03 Telephone Beena, 1.2.840.1 [id number] 2100 601332 Methodi 00:00:00 00:00:00 Herbert Herman 38281.1.[address] 3.430.2.7 Hospit a .3.812326 l .8 2020-08-03 2020-08-03 Travel 1.2.840.1 1.2.851.450 7057 993777 Methodi 00:00:00 00:00:[address] 3.430.2.7 0.2.7.3.698 Ho spita .3.894278 084.8 l .8 2020-08-02 2020-08-02 Orders Doctor VALLE 1.2.840.114 [id number] 12 Univers 00:00:00 00:00:00 Only Unassigned, ESTELITA 350.1.13.10 ity of [facility] 4.2.7.2.686 Xander as 871.3093754 [address] 2020-08-02 2020-08-02 Orders Doctor VALLE 1.2.840.114 [id number] 12 00:00:00 00:00:00 Only Unassigned, ESTELITA 350.1.13.10 [facility] 4.2.7.2.[id number] [facility] 2020-07-30 2020-07-30 Telephone [facility] 1.2.840.114 83 183960 Univers 00:00:00 00:00:00 [facility] [employer] 350.1.13.10 it y of Surgical 4.2.7.2.686 Xander as Specialti [phone] [facility] 2020-07-30 2020-07-30 Orders Doctor VALLE 1.2.840.114 [id number] 61 Univers 00:00:00 00:00:00 Only Unassigned, ESTELITA 350.1.13.10 ity of [facility] 4.2.7.2.686 Xander as [id number] [address] 2020-07-30 2020-07-30 Telephone [facility] 1.2.840.114 83 355498 00:00:00 00:00:00 [facility] 350.1.13.10 Surgical 4.2.7.2.686 Specialti [id number] [address] 2020-07-30 2020-07-30 Orders Doctor VALLE 1.2.840.114 [id number] 61 00:00:00 00:00:00 Only Unassigned, ESTELITA 350.1.13.10 [facility] 4.2.7.2.686 [id number] 009 2020-07-28 2020-07-28 [facility] 1.2.840.114 829 67935 [facility] 12:33:50 23:59:00 Encounter Edgar Alex 350.1.13.10 ity of [place] 4.2.7.2.686 [place] [facility] [phone] [facility] [address] [place] [address] 2020-07-28 2020-07-28 [facility] 1.2.840.114 829 37043 12:33:50 23:59:00 Encounter Edgar Alex 350.1.13.10 [place] 4.2.7.2.686 [place] [id number] 807 2020-07-28 2020-07-28 Outpatient R [facility] 10780 73915 [facility] 13:30:00 13:30:00 EDGAR walker [facility] 2020-07-28 2020-07-28 Office [facility] 1.2.800.474 9731 5994 [facility] 12:57:02 13:24:01 Visit Edgar Martell 350.1.13.10 it y of Surgical 4.2.7.2.686 Xander as Specialti [phone] Md dical es [facility] 2020-07-28 2020-07-28 Office [facility] 1.2.395.903 7773 5994 12:57:02 13:24:01 Visit Edgar Martell 350.1.13.10 Surgical 4.2.7.2.686 Specialti [id number] es [address] [place] 2020-07-28 2020-07-28 Telephone [facility] 1.2.840.114 82 315181 [facility] 00:00:00 00:00:00 Edgar Martell 350.1.13.10 it y of Surgical 4.2.7.2.686 Xander as Specialti 662.9434598 Md dical es 198 [facility] 2020-07-28 2020-07-28 Orders Doctor VALLE 1.2.840.114 [id number] 63 Univers 00:00:00 00:00:00 Only Unassigned, ESTELITA 350.1.13.10 ity of [facility] 4.2.7.2.686 Xander as 885.5907560 [place] [address] [address] 2020-07-19 2020-07-19 Travel 1.2.840.1 1.2.599.055 2006 459967 Methodi 00:00:00 00:00:[address] 3.430.2.7 0.2.7.3.698 Ho spita .3.185101 084.8 l .8 2020-07-19 2020-07-19 Orders Rob, 1.2.840.1 [id number] 874972 3224 Methodi 00:00:00 00:00:00 Only Gosia 56308.1.[address] 3.430.2.7 Hospit a .3.900648 l .8 2020-07-16 2020-07-16 Office Beena, 1.2.840.1 [id number] 476745 0754 Methodi 10:45:08 11:55:25 Visit Mansoor Salcido. 15500.1.[address] 3.430.2.7 Hospit a .3.366373 l .8 2020-07-16 2020-07-16 Travel 1.2.840.1 1.2.850.465 3062 295473 Methodi 00:00:00 00:00:[address] 3.430.2.7 0.2.7.3.698 Ho spita .3.161639 084.8 l .8 2020-07-08 2020-07-08 Orders Antonio, 1.2.840.1 [id number] 52853 29857 Methodi 00:00:00 00:00:00 Only Liya 88157.1.[address] 3.430.2.7 Hospit a .3.381634 l .8 2020-07-08 2020-07-08 Telephone Jaz Bean 1.2.840.1 [id number] Methodi 00:00:00 00:00:[address] 3.430.2.7 Hospit a .3.626957 l .8 2020-06-07 2020-07-05 Inpatient DANIA Doss, [facility] PHYT [id number] [facility], [facility]IN [facility] 00:07:00 02:46:[address] [place] [address] 2020-07-02 2020-07-02 Telephone Beena, 1.2.840.1 [id number] 2100 534212 Methodi 00:00:00 00:00:00 Mansoor Kirkland [address]194.1.[address] 3.430.2.7 Hospit a .3.365207 l .8 2020-06-30 2020-06-30 Hospital [place], 1.2.840.1 [id number] 38025 96999 Methodi 09:38:22 23:59:00 Encounter Mansoor Kirkland 45486.1.[address] 3.430.2.7 Hospit a .3.397766 l .8 2020-06-30 2020-06-30 Office [place], 1.2.840.1 [id number] 720429 3239 Methodi 07:59:56 09:17:55 Visit Mansoor Kirkland 55132.1.[address] 3.430.2.7 Hospit a .3.565067 l .8 2020-06-30 2020-06-30 Travel 1.2.840.1 1.2.254.601 3195 667659 Methodi 00:00:00 00:00:[address] 3.430.2.7 0.2.7.3.698 Ho spita .3.927573 084.8 l .8 2020-06-28 2020-06-28 Travel 1.2.840.1 1.2.995.920 6118 011508 Methodi 00:00:00 00:00:[address] 3.430.2.7 0.2.7.3.698 Ho spita .3.532928 084.8 l .8 2020-06-12 2020-06-12 Nurse Therapy, [facility] 1.2.840.114 [id number] Univers 08:28:23 12:31:10 Visit Alan Osuna SPECIALTY 350.1.13.10 ity of CARE 4.2.7.2.686 [facility] CENTER AT [phone] Md dical [place] [id number] [facility] 2020-06-12 2020-06-12 Outpatient Ann Marie OSUNA [facility] 18941 51454 Univers 10:00:00 10:00:00 ALAN ity of [facility] 2020-06-12 2020-06-12 Orders Doctor LEONARD 1.2.840.114 [id number] [facility] 00:00:00 00:00:00 Only Unassigned, ESTELITA 350.1.13.10 ity of [place] [facility] 4.2.7.2.686 Xander [id number] [address] 2020-05-26 2020-05-26 Inpatient DANIA Doss MARTHA PHYT [id number] [facility] 14:27:00 14:27:00 Cheryl 72 [facility] 2020-04-06 2020-04-07 Inpatient DANIA Doss LIENWH PHYT [id number] [facility] 00:03:00 14:21:00 Cheryl 95 [facility] 2020-03-10 2020-03-10 Inpatient DANIA Doss MARTHA PHYT [id number] [facility] 19:27:00 19:27:00 Cheryl 09 [facility] 2020-02-18 2020-03-10 Inpatient LIEN KangWH PHYT [id number] [facility] 11:14:00 00:04:01 Cheryl 00 [facility] 2019-08-07 2019-08-07 Outpatient JAZ [facility] [id number] [place] 00:00:00 00:00:[address] 2019-04-16 2019-04-16 Emergency E [facility] 7501 [facility] 12:52:00 12:52:00 2018-10-17 2018-10-17 Outpatient E [facility] NHUNG 7500 [facility] 11:57:00 11:57:00 Results Test Description Test Time Test Comments Results Result Comments Source POCT URINALYSIS DIPSTICK 2022-05-30 00:00:00 Test Item Value Reference Range Interpretation Comme nts COLOR UA (test code = 5778-6) Yellow YELLOW/STRAW CLARITY UA (test code = 14139-7) Slightly Cloudy CLEAR GLUCOSE UA (test code = 5792-7) Negative NEGATIVE BILIRUBIN UA (test code = 5770-3) Negative NEGATIVE KETONES UA (test code = 68511-6) Negative NEGATIVE SPECIFIC GRAVITY UA (test code = 5811-5) 1.005-1.035 BLOOD UA (test code = 5794-3) Negative NEGATIVE PH UA (test code = 5803-2) 5-9 PROTEIN UA (test code = 5804-0) Trace NEGATIVE UROBILINOGEN UA (test code = 5818-0) 0.02 E.U/DL NORMAL MG/DL LEUKOCYTE ESTERASE UA (test code = 5799-2) Negative NEGATIVE NITRITE UA (test code = 5802-4) Negative NEGATIVE REDUCING SUBSTANCES URINE (test code = 34356-6) [facility],[id number] 00:00:00 Test Item Value Reference Range Interpretation Comments PVR (test code = 6116) 29ml cc/ml [facility] [id number] 06:47:00 Test Item Value Reference Range Interpretation Comments Estradiol (test <15 pg/mL Reference R salazar code = 2243-4) Follicular Ph ase: 19-144 Mid-Cycl e: 64-357 Luteal P hase: 56-214 Postmenopausal: < or = 31 Reference range established on post-pubertal patientpopulati on. No pre-pubertal reference rangeestablishe d using this assa y. For any patient s forwhom low Estradiol level s are anticipated (e. g. males,pre-puber malvin children and hypogonadal/pos t-men opausal females ), the [facility] Center[facility] iol, Ultrasensitive, LCMSMS assay is recommended(ord er code 63445). Pl ease note: patients being treated with th e drug fulvestran t (Faslodex(R)) h ave demonstrated significant interference in immunoassay met hods for estradiol measurement. Th e cross reactivit y could lead to falsely elevate d estradiol test results leading to an inappropriat e clinical assess ment of estrogen status.Fridge ord er code 80554-Agewqytcu , Ultrasensitive LC/MS/MS demonstrates negligible cros s reactivity with fulvestrant. RAC (test code = Performing RAC) Organization Information: Site ID: [facility] Address: [address] [place] [id number] Director: Arash MehtaRegency Hospital Cleveland WestFollicle stimulating [id number] 17:10:00 Test Item Value Reference Range Interpretation Comments Follicle 73.0 mIU/mL Reference Rang e stimulating Follicular Phas e hormone (test 2.5-10.2 Mid-c ycle code = 96111-7) Peak 3.1-17. 7 Luteal Phase 1.5- 9.1 Postmenopausal 23.0-116.3 RAC (test code = Performing RAC) Organization Information: Site ID: [facility] Address: [address] [place] [id number] Director: Arash WrightTexas Health [id number] 17:10:00 Test Item Value Reference Interpretation Comments Range Testoster 11 ng/dL 2-45 For additional information, one, please refer bertha [email or web address] lc/ms/ms Section 101/faq/ TotalTestostero (test neLCMSMS (This link is being code = provided for 2986-8) informational/e ducational purposes only.) (Note) This test was develo ped and its analytical performancechar acteristics have been deter mined by [employer]. It h as notbeen cleared or appr abby by the FDA. This assay has been validatedpursua nt to the CLIA regulations and is used for clinical purpos es. [address]im[address]ley [id number] [place] [address],[address] [place] [address] [phone] Sterling Fairchild MD RAC (test Performing code = Organization RAC) Information: Site ID: [id number] Name: [facility] Address: [address] [place] [address], [address] [place] [address] Director: Travis Fairchild MD [facility] CenterT4, [id number] 17:10:00 Test Item Value Reference Range Interpretation Comments T4, free (test code 1.1 ng/dL 0.8-1.8 = 3024-7) RAC (test code = Performing Organization RAC) Information: Site ID: [facility] Name: [facility] Address: [address] [place] [phone] Director: Arash PinoMercy Health – The Jewish HospitalThyroid stimulating [id number] 17:10:00 Test Item Value Reference Range Interpretation Comments TSH (test 3.38 See_Comment [Automated mes jasson] code = The system Primo1Dic h 3016-3) generated this result transmit naty reference range : 0.40 - 4.50 mIU /L. The reference r salazar was not used to interpret this result as normal/abnormal . RAC (test Performing code = RAC) Organization Information: Site ID: [facility] Name: [facility] Address: [address] [place] [phone] Director: Henning Jodie Magruder HospitalDehydroepiandosterone [id number] 17:10:00 Test Item Value Reference Range Interpretation Comments DHEA sulfate 9 See_Comment DHEA-S values fall (test code = with advancing 2191-5) age.For referen ce, the reference intervals for 3 1-40 yearold patient s are: Male: 93-4 15 mcg/dLFemale: 19-237 mcg/dL [Automated mess age] The system [employer] generated this result transmit naty reference range : 9 - 118 mcg/dL. T he reference range was not used to interpret this result as normal/abnormal . RAC (test code Performing = RAC) Organization Information: Site ID: [facility] Name: [facility] Address: [address] [place] [phone] Director: Arash MehtaRegency Hospital Cleveland WestProlactin [id number] 17:10:00 Test Item Value Reference Range Interpretation Comments Prolactin (test 6.1 ng/mL Reference R salazar code = 2842-3) Females Non-p regnant 3.0-30.0 Pregn ant 10.0-209.0 Postmenopausal 2.0-20.0 RAC (test code = Performing RAC) Organization Information: Site ID: RGA [facility] Address: [address] [place] [phone] Director: Arash Segundo HospitalTestosterone [id number] 17:10:00 Test Item Value Reference Range Interpretation Comments Testosterone 1.7 pg/mL 0.2-5.0 (Note) The , free (test concentration o f free code = testosterone is 2991-8) derived from a mathematical mo del using total testosterone by LCMSMS, sex hor darell binding globuli n and albumin. This t est was developed and i ts analytical perf ormance characteristics have been determined by [employer] . It has not been cl eared or approved by the FDA. This assay has been validated pursuant to the CLIA regulations and is used for clinic al purposes. Fmkrista d [id number] [place] [address],Denisha te [address] [place] [address] [phone] Kristie Fairchild MD RAC (test Performing code = RAC) Organization Information: Site ID: [id number] Name: [facility] Address: [address] [place] [address], [address] [place] [address] Director: Travis Segundo HospitalProgesterone, [id number] 17:10:00 Test Item Value Reference Range Interpretation Comments Progesterone (test <0.5 ng/mL Referenc e code = 2839-9) Ranges Female Follicular Phas e < 1.0 Luteal Phase 2.6-21.5 Post menopausal < 0.5 1st Trimester 4.1-34.0 2nd Trimester 24.0-76.0 3rd Trimester 52.0-302.0 RAC (test code = Performing RAC) Organization Information: Site ID: RGA [facility] Address: [address] [place] [phone] Director: Arash Segundo [facility] 12 [id number] 13:38:01 Test Item Value Reference Range Interpretation Comments Ventricular rate (test 61 code = 253) Atrial rate (test code 61 = 255) GA interval (test code 174 = 266) QRSD interval (test 80 code = 260) QT interval (test code 428 = 264) QTC interval (test code 430 = 265) P axis 1 (test code = 33 267) QRS axis 1 (test code = 39 268) T wave axis (test code 56 = 270) EKG impression (test Normal sinus code = 273) rhythm-Normal ECG-In automated comparison with ECG of 16-SEP-2021 10:39,-No significant change was found- [facility] (COVID-19) RNA [Presence] in Respiratory specimen by SIOBHAN with probe [id number] 15:44:10 Test Item Value Reference Range Interpretation Comments SARS-CoV-2 (COVID-19) RNA Not detected [Presence] in Respiratory specimen by SIOBHAN with probe detection (test code = 23231-1) Whether patient is employed in a No healthcare setting (test code = 28251-3) Whether the patient has symptoms Yes related to condition of interest (test code = 54322-4) Whether the patient was No hospitalized for condition of interest (test code = 33460-3) Whether the patient was admitted No to intensive care unit (ICU) for condition of interest (test code = 71114-5) Whether patient resides in a No congregate care setting (test code = 96247-2) status (test code = No 34759-1) Date and time of symptom onset Unknown (test code = 72381-9) [facility] SYSTEMNuSw[facility] Vaginitis Plus (VG+)2021-10-19 17:09:00 Test Item Value Reference Interpretation Comments Range Atopobium Low - 0 Score vaginae (test code = 93495-5) BVAB 2 (test Low - 0 Score code = 21193-8) Megasphaera Low - 0 Score Calculate total score by species (test adding the 3 i ndividual code = bacterialvagino sis (BV) 68394-9) marker scores t ogether. Total score conor nterpreted as follows:Tota l score 0-1: Indicates the a bsence of BV.Total score 2: Indeterminate f or BV. Additional clin ical data should be evalu ated to establish a srinivasa gnosis.Total score 3-6: Natividad cates the presence of BV. This test was developed a nd its performance characteristics determined by [facility]. It has not been cleared or appr ovedby the Food and Drug Administration. Amena Negative Negative albicans, SIOBHAN (test code = 02606-8) C. glabrata, Negative Negative DNA (test code = 92621-9) Trichomonas Negative Negative vaginalis, TMA result (test code = 02458-7) Chlamydia Negative Negative trachomatis, SIOBHAN (test code = 29924-1) Neisseria Negative Negative gonorrhoeae, SIOBHAN (test code = 52503-1) SAMMI (test code Test(s) = SAMMI) 656310-Wlemovt albicans, SIOBHAN; 916536-Oltbgho glabrata, NAAwas developed and its performance characteristics determinedby [facility]. It has not been cleared or approved by the Foodand Drug Administration.Per formed at: 01 - [address] [id number] Director: Jose Luis Alvarez MD, Phone: [phone] [facility] CenterLipid [id number] 19:19:00 Test Item Value Reference Range Interpretation Comments Cholesterol, total 237 mg/dL <=200 H (test code = 2093-3) HDL cholesterol 52 mg/dL See_Comment [Automated (test code = 2084-) message ] The system which generated this result transmitted reference range : > OR = 50. The reference range was not used to interpret this result as normal/abnormal . Triglycerides (test 195 mg/dL <=150 H code = 2571-8) LDL cholesterol 151 mg/dL (calc) H Reference ra nge: calculated (test <100 Desira ble code = 82798-8) range <100 m g/dL for primary prevention; <70 mg/dL for patients with C HD or diabetic patients with > or = 2 CHD risk factors. LDL-C is now calculated using the Chalo-Deo calculation, which is a validated novel method providin g better accuracy than the Friedewald equation in the estimation of LDL-C. Chalo Laura et al. CELINA. 2013;310(19): 6838-7635 (http://educati on .[employer]Diagn[employer] .com/faq/NUA294 ) Cholesterol/HDL 4.6 See_Comment [Automated ratio (test code = message] The 9830-1) system which generated this result transmitted reference range : <5.0 (calc). Th e reference range was not used to interpret this result as normal/abnormal . Non-HDL cholesterol 185 See_Comment H For carey ents with (test code = diabetes plus 1 20354-8) major ASCVD ris k factor, treatin g to a non-HDL-C goal of <100 mg/dL (LDL-C of <70 mg/dL) is considered a therapeutic option. [Automated message] The system which generated this result transmitted reference range : <130 mg/dL (calc). The reference range was not used to interpret this result as normal/abnormal . SAMMI (test code = FASTING:YES SAMMI) FASTING: YES RAC (test code = Performing RAC) Organization Information: Site ID: RGA Name: [facility] Address: [address] [place] [phone] Director: Arash Lopez Lab Interpretation Abnormal (test code = 60891-7) [facility] CenterHemoglobin [id number] 19:19:00 Test Item Value Reference Interpretation Comments Range Hemoglobin A1C 5.8 See_Comment H For someone w ithout (test code = known diabetes, a 4548-4) hemoglobin A1c value between 5.7% an d 6.4% is consist ent withprediabetes and should be confi rmed with a follow-u p test. For someo ne with known diab etes, a value <7%indicates that their diabetes is well controlled . W5kpanrewv shou ld be individualized based on duration ofdiabetes, age , comorbid condit ions, and otherconsiderat ions. This assay resu lt is consistent with an increased risko f diabetes. Curre ntly, no consensus ex ists regarding use ofhemoglobin A1 c for diagnosis of diabetes for children. [Auto mated message] The sy stem which generated this result transmit naty reference range : <5.7 % of total Hgb. The reference r salazar was not used to interpret this result as normal/abnormal . SAMMI (test code = FASTING:YES SAMMI) FASTING: YES RAC (test code = Performing RAC) Organization Information: Site ID: RGA Name: [facility] Address: [address] [place] [phone] Director: Arash Lopez Lab Interpretation Abnormal (test code = 82758-6) [facility] natriuretic [id number] 19:19:00 Test Item Value Reference Range Interpretation Comments BNP (test 59 pg/mL <=100 BNP levels inc rease code = with age in the 01701-5) generalpopulati on with the highest roberta ues seen inindividuals g reater than 75 years o f age.Reference: J. Am. Pio. Cardiol. 2002; 40:976-982. SAMMI (test FASTING:YES code = SAMMI) FASTING: YES RAC (test Performing code = RAC) Organization Information: Site ID: RGA [facility]: [facility] Address: [address] [place] [phone] Director: Arash Lopez [facility] CenterCT [facility]P A STREP (MOLECULAR)2021-04-02 15:22:00 Test Item Value Reference Range Interpretation Comments POCT GP A STREP (test negative Negative - code = 01576-2) Negative SAMMI (test code = SAMMI) accurate development and interpretation of all internal controls Lab Interpretation Normal (test code = 20089-8) [facility] [id number] 00:14:00 Test Item Value Reference Range Interpretation Comments Estradiol (test 48 pg/mL Reference R salazar code = 2243-4) Follicular Ph ase: 19-144 Mid-Cycl e: 64-357 Luteal P hase: 56-214 Postmenopausal: < or = 31 Reference range established on post-pubertal patientpopulati on. No pre-pubertal reference rangeestablishe d using this assa y. For any patient s forwhom low Estradiol level s are anticipated (e. g. males,pre-puber malvin children and hypogonadal/pos t-men opausal females ), the [facility] InstituteEstrad iol, Ultrasensitive, LCMSMS assay is recommended(ord er code 11420). Pl ease note: patients being treated with th e drug fulvestran t (Faslodex(R)) h ave demonstrated significant interference in immunoassay met hods for estradiol measurement. Th e cross reactivit y could lead to falsely elevate d estradiol test results leading to an inappropriat e clinical assess ment of estrogen status.Fridge ord er code 81902-Jasqusrek , Ultrasensitive LC/MS/MS demonstrates negligible cros s reactivity with fulvestrant. SAMMI (test code = FASTING:NO FASTING: SAMMI) NO RAC (test code = Performing RAC) Organization Information: Site ID: YASMINE Name: [facility] Address: [address] [place] [phone] Director: Arash Lopez [facility] CenterEstradiol [id number] 00:14:00 Test Item Value Reference Range Interpretation Comments Estradiol (test 48 pg/mL Reference R salazar code = 2243-4) Follicular Ph ase: 19-144 Mid-Cycl e: 64-357 Luteal P hase: 56-214 Postmenopausal: < or = 31 Reference range established on post-pubertal patientpopulati on. No pre-pubertal reference rangeestablishe d using this assa y. For any patient s forwhom low Estradiol level s are anticipated (e. g. males,pre-puber malvin children and hypogonadal/pos t-men opausal females ), the [facility] InstituteEstrad iol, Ultrasensitive, LCMSMS assay is recommended(ord er code 81932). Pl ease note: patients being treated with th e drug fulvestran t (Faslodex(R)) h ave demonstrated significant interference in immunoassay met hods for estradiol measurement. Th e cross reactivit y could lead to falsely elevate d estradiol test results leading to an inappropriat e clinical assess ment of estrogen status.Fridge ord er code 43262-Nagnqrwdb , Ultrasensitive LC/MS/MS demonstrates negligible cros s reactivity with fulvestrant. SAMMI (test code = FASTING:NO FASTING: SAMMI) NO RAC (test code = Performing RAC) Organization Information: Site ID: [facility] Name: [facility] Address: [address] [place] [phone] Director: Arash Lopez [facility] CenterOiiizoclEcpogbmqjjox2684-63-25 00:56:00 Test Item Value Reference Interpretation Comments Range Testosterone, <1 2-45 L Verified by re peat total, lc/ms/ms analysis. Fo r (test code = additional 2986-8) information, pl ease refer to http://educatio nsoniya stdiagnostics.c om/fa q/TotalTestoste Jonas CMSMS (This erik k is being provided for informational/e ducat ional purposes only.) This jaleesa t was developed and i ts analytical performance characteristics have been determined by [employer]. It has not been cleared or appr abby by theFDA. This assay has been validated pursu ant to the CLIA regulations and is used for clinic al purposes. RAC (test code = Performing RAC) Organization Information: Site ID: I Name: [facility] [place] Address: [address] [place] [address] Director: Phoenix Henderson M.D. Lab Interpretation Abnormal (test code = 35064-0) [facility] HospitalTestosterone [id number] 00:56:00 Test Item Value Reference Range Interpretation Comments Testosterone Please see comment 0.2-5.0 Result no t calculated , free (test because one or code = morerequired va lues 2991-8) exceed analytic al limits. This te st was developed and i ts analytical perf ormance characteristics have been determined by [employer]. It has not been cl eared or approved by theFDA. This assay has been validated pursu ant to the CLIA regula tions and is used for clinical purpos es. RAC (test Performing code = RAC) Organization Information: Site ID: [facility] Name: [facility] [place] Address: [address] [place] [address] Director: Phoenix Henderson M.D. [facility] VdabivxzHifkxaavuqnk3800-15-39 00:56:00 Test Item Value Reference Interpretation Comments Range Testosterone, <1 2-45 L Verified by re peat total, lc/ms/ms analysis. Fo r (test code = additional 2986-8) information, pl ease refer to http://educatio n.len stdiagnostics.c om/fa q/TotalTestoste Jonas CMSMS (This erik k is being provided for informational/e ducat ional purposes only.) This jaleesa t was developed and i ts analytical performance characteristics have been determined by [employer]. It has not been cleared or appr abby by theFDA. This assay has been validated pursu ant to the CLIA regulations and is used for clinic al purposes. RAC (test code = Performing RAC) Organization Information: Site ID: [facility] Name: Miaopaio kyle [place] Address: [address] [place] [address] Director: Phoenix Henderson M.D. Lab Interpretation Abnormal (test code = 29169-5) [facility] CenterTestosterone [id number] 00:56:00 Test Item Value Reference Range Interpretation Comments Testosterone Please see comment 0.2-5.0 Result no t calculated , free (test because one or code = morerequired va lues 2991-8) exceed analytic al limits. This te st was developed and i ts analytical perf ormance characteristics have been determined by [employer]. It has not been cl eared or approved by [facility]. This assay has been validated pursu ant to the CLIA regula tions and is used for clinical purpos es. RAC (test Performing code = RAC) Organization Information: Site ID: [facility] Name: [facility]idge[facility]da [place] Address: [address] [place] [address] Director: Phoenix Henderson M.D. [facility] CenterTHINPREP TIS PAP AND HPV mRNA E6/E7 REFLEX HPV 16,18/45 2020-09-01 22:15:00 Test Item Value Reference Interpretation Comments Range Clinical information None gi ailyn (test code = 45941-5) Date of last NONE GIVEN menstrual period (test code = 8665-2) Prev. pap: (test code NONE G IVEN = 60272-5) Prev. bx: (test code NONE GI AILYN = 01374-0) Source (test code = None giv en 43332-1) Statement of adequacy Satisf actory for (test code = 54777-2) evalua tion.Endocervi marvin/transformat ion zone componentpresen t. Interpretation/result Negati ve for : (test code = intraepitheli al 80425-8) lesion or malignancy. Comment (test code = This Pa p test has ) been evaluated with computerassiste d technology. Millinery Department Manager LRW, CT(ASC P)CT (test code = 73303-6) screen ing location: [address] [facility] [id number] Comment (test code = EXPLANA TORY NOTE: 1110728) The Pap is a screening test for [...] Detected Not Detected Methodo logy: code = 62329-2) Transcriptio n-Mediat ed Amplificatio n This assay dete cts E6/E7 viral messenger RNA ( mRNA) from 14high-ris k HPV types (16,18,31,33,35 ,39,4 5,51,52,56,58,5 9,66, 68). The analyt ical performance characteristics of thisassay have been determined by [employer].The modifications h ave not been cleare d or approvedby the FDA. This assay has been validated pursu antto the CLIA regula tions and is used forclinical purposes. For additional information, pl ease refer tohttp://educat ion.Blacksumac .Populr/ faq/WJJ740o9(Th is link if provide d for information/edu catio nal purposes on ly.) ESTELITA (test code = RAC) Performing Organization Information: Site ID: IG Name: [facility] Address: [address] [place] [address] Director: Dr. Arash Lopez [facility] CenterTHINPREP TIS PAP AND HPV mRNA E6/E7 REFLEX HPV 16,18/45 2020-09-01 22:15:00 Test Item Value Reference Interpretation Comments Range Clinical information None gi ailyn (test code = 51798-4) Date of last NONE GIVEN menstrual period (test code = 8665-2) Prev. pap: (test code NONE G IVEN = 08303-0) Prev. bx: (test code NONE GI AILYN = 87092-1) Source (test code = None giv en ) Statement of adequacy Satisf actory for (test code = 12794-6) evalua tion.Endocervi marvin/transformat ion zone componentpresen t. Interpretation/result Negati ve for : (test code = intraepitheli al 30322-6) lesion or malignancy. Comment (test code = This Pa p test has ) been evaluated with computerassiste d technology. Millinery Department Manager LRW, CT(ASC P)CT (test code = 13799-0) screen ing location: [place] [id number] [facility] [place] ing, [id number] Comment (test code = EXPLANA AMELIE NOTE: 2438429) The Pap is a screening test for [...] Detected Not Detected Methodo logy: code = 61350-9) Transcriptio n-Mediat ed Amplificatio n This assay dete cts E6/E7 viral messenger RNA ( mRNA) from 14high-ris k HPV types (16,18,31,33,35 ,39,4 5,51,52,56,58,5 9,66, 68). The analyt ical performance characteristics of thisassay have been determined by [employer].The modifications h ave not been cleare d or approvedby the FDA. This assay has been validated pursu antto the CLIA regula tions and is used forclinical purposes. For additional information, pl ease refer tohttp://educat ion.uTaPs .com/ faq/ZBV799w0(Th is link if provide d for information/edu catio nal purposes on ly.) RAC (test code = RAC) Performing Organization Information: Site ID: IG Name: [facility] Address: [address] [facility] [place] [address] Director: Dr. [facility] 12 [id number] 04:48:03 Test Item Value Reference Range Interpretation Comments Ventricular rate (test code = 253) Atrial rate (test code = 255) GA interval (test code = 266) QRSD interval (test code = 260) QT interval (test code = 264) QTC interval (test code = 265) P axis 1 (test code = 267) QRS axis 1 (test code = 268) T wave axis (test code = 270) EKG impression (test Normal sinus code = 273) rhythm-Normal ECG-No previous ECGs available-Electronica lly Signed By Anibal Harris MD ([id number]) on 08/24/2020 11:48:02 PM [facility] 12 [id number] 04:48:03 Test Item Value Reference Range Interpretation Comments Ventricular rate (test code = 253) Atrial rate (test code = 255) GA interval (test code = 266) QRSD interval (test code = 260) QT interval (test code = 264) QTC interval (test code = 265) P axis 1 (test code = 267) QRS axis 1 (test code = 268) T wave axis (test code = 270) EKG impression (test Normal sinus code = 273) rhythm-Normal ECG-No previous ECGs available-Electronica lly Signed By Anibal Harris MD ([id number]) on 08/24/2020 11:48:02 PM [facility] SHOULDER 2+ VW [id number] 19:28:28 1. ?Degenerative changes. RL 1105 HISTORY: ?Right shoulder pain COMPARISON: ?None. FINDINGS: 3 views of the right shoulder demonstrate normal alignment. ?No fracture,foreign body, or focal osseous lesion is identified. Degenerative changes seen in the acromioclavicular joint. Punctatecalcification seen along the insertion of the infraspinatus tendon on theinternal rotation view. [facility], Radiant Results Inft User - 07/28/2020 2:29 PM CDTHISTORY: Right shoulder pain COMPARISON: None.FINDINGS:3 views of the right shoulder demonstrate normal alignment. No fracture,foreign body, or focal osseous lesion is identified.Degenerative changes seen inthe acromioclavicular joint. Punctatecalcification seen along the insertion of the infraspinatus tendon on theinternal rotation view.IMPRESSION1. Degenerative changes.RL 1105 [facility] B[facility] ION CAD [id number] 14:54:06 - SCR MAMM BILATERAL ION CAD DIGITALBILATERAL DIGITAL SCREENING MAMMOGRAM 3D/2D WITH CAD: 10/30/2018CLINICAL: Asymptomatic. Digital breast tomosynthesis was performed in addition to routine CC and MLOviews. Current mammographic images were evaluated by either a [employer] M-Vu or a [employer] ImageChecker CAD (computer aided detection system). Comparison is made to exams dated 10/08/2017 mammogram, 08/10/2015mammogram, and 09/06/2016 mammogram - [facility]. There are scattered fibroglandular tissues in both breasts. No suspicious mass, architectural distortion, malignant type calcification, or lymph node abnormality detected. Breast architecture is stable compared to prior exams.IMPRESSION: NEGATIVEThere is no mammographic evidence of malignancy. Resume annual screening mammography in one year. Anna Dickerson M.D. cc/penrad:11/06/2018 14:54:06 Entry: cp - 11/08/2018 09:41:01Attending Technologist: Sandra Rainey MM, [employer] MammographyImaging Technologist: Patricia Christine MM, [employer] [facility] Mammographyletter sent: BIRADS 1-2 Normal Mammogram BI-RADS: 1 Negative
[2022-07-28 14:52] LABS: Absolute Lymphocytes (CBC) 1.6 K/uL (0.7-4.9); Hematocrit 42.2 % (36.0-45.0); Lymphocytes % 23.7 % (15.3-44.8); MCV 90.1 fL (80-100); MPV 8.3 fL (7.6-11.3); RBC Red Blood Cell Count 4.68 M/uL (3.86-4.86)
[2022-07-28 14:59] LABS: Protime INR 1.02
[2022-07-28 15:10] LABS: BUN Blood Urea Nitrogen 16 mg/dL (7-18); Bicarbonate 26 mEq/L (21-32); Glomerular Filtration Rate 70 ml/min (=/>90); Glucose Level 101 mg/dL (74-106); Potassium 3.6 mEq/L (3.5-5.1); Sodium Level 138 mEq/L (136-145); Troponin High Sensitivity < 3.0 pg/mL (<58.9)
--- NOTE | 2022-07-28 15:18 | RAD REPORT ---
EXAM DESCRIPTION: Gerber Single View07/28/2022 2:59 pm CLINICAL HISTORY: Shortness of breath : 2020 FINDINGS: The lungs appear clear of acute infiltrate. The heart is normal size IMPRESSION: No acute abnormalities displayed
[2022-07-28 15:29] LABS: SARS-COV-2 RT PCR NEGATIVE (NEGATIVE)
[2022-07-28] MEDS ORDERED: ONDANSETRON 4 MG/2 ML VIAL ONE (15:47)
[2022-07-28] MEDS ORDERED: MORPHINE 2 MG/ML SYR ONE (15:47)
--- NOTE | 2022-07-28 16:15 | RAD REPORT ---
EXAM DESCRIPTION: CT - Chest For Pe Angio - 07/28/2022 4:01 pm CLINICAL HISTORY: Chest pain COMPARISON: 2020 TECHNIQUE: Dynamically enhanced axial 3 mm thick images of the chest were obtained during administra tion of 95 mL Isovue 370 IV contrast. Coronal and oblique reconstruction images were generated and re viewed. Exam utilizes a protocol for optimal evaluation of pulmonary arterial tree. Maximum intensity projections 3D imaging was utilized All CT scans are performed using dose optimization technique as appropriate and may include automated exposure control or mA/KV adjustment according to patient size. FINDINGS: A pulmonary embolus is not seen. A thoracic aortic aneurysm is not noted. A pleural effusion is not seen. A pericardial effusion is not seen. A lung consolidation is not present. IMPRESSION: Negative for a pulmonary embolism.
[2022-07-28] MEDS ORDERED: ACETAMINOPHEN 325 MG TABLET ONE (17:07)
[2022-07-28 18:47] VITALS: BP 124/87; TEMP 99.8; O2SAT 97
--- NOTE | 2022-07-28 19:46 | ER ---
Nurse's Notes [facility] Name: Paulina Ryan Age: 61 yrs Sex: Female : 1960 Arrival Date: 07/28/2022 Time: 13:33 Bed 7 Private MD: Osmin Scott Diagnosis: Chest pain, unspecified;Cough Presentation: 07/28 13:47 Chief complaint: Nausea, diarrhea, chills, malaise, cough, and body aches x 3 days, hb sharp pain in left breast x 2 days. Coronavirus screen: Client presents with at least one sign or symptom that may indicate coronavirus-19. Standard/surgical mask placed on the client. Provider contacted for isolation considerations. Ebola Screen: No symptoms or risks identified at this time. Initial Sepsis Screen: Does the patient meet any 2 criteria? No. Patient's initial sepsis screen is negative. Does the patient have a suspected source of infection? No. Patient's initial sepsis screen is negative. Risk Assessment: Do you want to hurt yourself or someone else? Patient reports no desire to harm self or others. Onset of symptoms was July 28, 2022. 13:47 Method Of Arrival: Wheelchair hb 13:47 Acuity: CHENTE 3 hb Triage Assessment: 13:48 General: Appears in no apparent distress. ill, Behavior is calm, cooperative. Pain: hb Pain currently is 8 out of 10 on a pain scale. Neuro: Level of Consciousness is awake, alert, obeys commands, Oriented to person, place, time, situation. Cardiovascular: Patient's skin is warm and dry. Respiratory: Respiratory effort is even, unlabored, Respiratory pattern is regular, symmetrical. Historical: - Allergies: 13:49 No Known Allergies; hb - PMHx: 15:31 nerve pain; Diabetes mellitus; aa5 - PSHx: 15:31 Appendectomy; section; aa5 Screenin:30 [facility] ED Fall Risk Assessment (Adult) History of falling in the last 3 months, aa5 including since admission No falls in past 3 months (0 pts) Confusion or Disorientation No (0 pts) Intoxicated or Sedated No (0 pts) Impaired Gait No (0 pts) Mobility Assist Device Used No (0 pt) Altered Elimination No (0 pt) Score/Fall Risk Level 0 - 2 = Low Risk. Abuse screen: Denies threats or abuse. Nutritional screening: No deficits noted. Tuberculosis screening: No symptoms or risk factors identified. Assessment: 15:30 General: Appears uncomfortable, Behavior is calm, cooperative. Pain: Complains of pain aa5 in whole body Pain does not radiate. Pain currently is 8 out of 10 on a pain scale. Quality of pain is described as aching, Pain began 2-3 days ago. Is continuous. Neuro: Level of Consciousness is awake, alert, obeys commands, Oriented to person, place, time, situation. Cardiovascular: Heart tones S1 S2 present Rhythm is sinus rhythm. Respiratory: Reports shortness of breath cough Airway is patent Respiratory effort is even, unlabored, Respiratory pattern is regular, symmetrical, Breath sounds are clear bilaterally. GI: Abdomen is obese, Bowel sounds present X 4 quads. Abd is soft and non tender X 4 quads. : No signs and/or symptoms were reported regarding the genitourinary system. EENT: No signs and/or symptoms were reported regarding the EENT system. Derm: Skin is pink, warm \T\ dry. Musculoskeletal: Range of motion: intact in all extremities. 15:35 Reassessment: PA notified of pt's request for medication for nausea and pain. . aa5 16:03 Reassessment: Patient is alert, oriented x 3, equal unlabored respirations, skin aa5 warm/dry/pink. Pt back from CT scan . 17:06 Reassessment: Patient is alert, oriented x 3, equal unlabored respirations, skin aa5 warm/dry/pink. Patient states feeling better. Patient states symptoms have improved. Pt appears more comfortable than previous assessment. Awaiting CT results, pt notified of wait time. 17:40 Reassessment: Patient is alert, oriented x 3, equal unlabored respirations, skin aa5 warm/dry/pink. Patient states feeling better. Vital Signs: 13:47 BP 124 / 78; Pulse 103; Resp 20; Temp 98.9; Pulse Ox 100% on R/A; Weight 98.88 kg; hb Height 5 ft. 4 in. ; Pain 8/10; 15:31 BP 118 / 64; Pulse 86; Resp 20 S; Temp 98.9(O); Pulse Ox 99% on R/A; aa5 17:00 BP 124 / 87; Pulse 86; Resp 16 S; Temp 99.8(O); Pulse Ox 97% on R/A; aa5 13:47 Body Mass Index 37.42 (98.88 kg, 162.56 cm) hb 13:47 Pain Scale: Adult hb 17:00 PA notified of increased temperature aa5 ED Course: 13:33 Patient arrived in ED. mr 13:33 Osmin Scott MD is Private Physician. mr 13:40 Armando Chairez, MARTY is [facility] 13:40 Chava Hutson MD is Attending Physician. jmm 13:49 Triage completed. hb 13:49 Arm band placed on. hb 14:42 COVID-19/FLU A+B/RSV Sent. bc6 14:42 PT-INR Sent. bc6 14:42 Lactate w/ 2H reflex if indic. Sent. bc6 14:42 Basic Metabolic Panel Sent. bc6 14:42 CBC with Diff Sent. bc6 14:42 Troponin HS Sent. bc6 14:42 Inserted saline lock: 20 gauge in left antecubital area, using aseptic technique. bc6 15:01 XRAY Chest (1 view) In Process Unspecified. EDMS 15:17 Melania Ruelas, RN is Primary Nurse. aa5 15:30 Patient has correct armband on for positive identification. Bed in low position. Call aa5 light in reach. Side rails up X 1. Adult w/ patient. Client placed on continuous cardiac and pulse oximetry monitoring. NIBP monitoring applied. 16:02 CT Chest For PE Angio In Process Unspecified. EDMS 17:24 Osmin Scott MD is Referral Physician. [facility] 17:40 No provider procedures requiring assistance completed. IV discontinued, intact, aa5 bleeding controlled, No redness/swelling at site. Pressure dressing applied. Patient maintains SpO2 saturation greater than 95% on room air. Administered Medications: 15:47 Drug: morphine IVP or IV 2 mg Route: IVP; Infused Over: 4 mins; Site: left antecubital; aa5 17:05 Follow up: Response: No adverse reaction; Pain is decreased aa5 15:47 Drug: Ondansetron IVP 4 mg Route: IVP; Site: left antecubital; aa5 17:05 Follow up: Response: No adverse reaction; Nausea is decreased aa5 17:05 Drug: Acetaminophen PO 650 mg Route: PO; aa5 17:40 Follow up: Response: No adverse reaction aa5 Medication: 17:40 VIS not applicable for this client. aa5 Outcome: 17:24 Discharge ordered by . vaibhav 17:40 Discharged to home ambulatory, with significant other. aa5 17:40 Condition: stable 17:40 Condition: improved 17:40 Discharge instructions given to patient, significant other, Instructed on discharge instructions, follow up and referral plans. medication usage, Demonstrated understanding of instructions, follow-up care, medications, Prescriptions given X 1. 17:47 Patient left the ED. [email or web address] Signatures: Dispatcher [employer] EDMS Armando Chairez PA PA jmm Rivera, Mary mr Suraj, Melania, RN RN aa5 Joan Seaman, Isabelle Mello RN, RN RN jl7 Shweta Lee [facility]
--- NOTE | 2022-07-28 19:46 | EDPHYS ---
Physician Documentation [facility] Name: Paulina Ryan Age: 61 yrs Sex: Female : 1960 Arrival Date: 07/28/2022 Time: 13:33 Bed 7 Private MD: Osmin Scott ED Physician Chava Hutson HPI: 07/28 13:56 This 61 yrs old Female presents to ER via Wheelchair with complaints of Shortness Of jmm Breath, Flu Symptoms, Breast Problem. 13:56 The patient has shortness of breath at rest. Onset: The symptoms/episode began/occurred jmm gradually, 3 day(s) ago. Duration: The symptoms are continuous. This is a 61 year old female with a history of dm that presents to the ED with complaints of cough, chest pain, body aches. Prescribed oral abx without relief. . Historical: - Allergies: 13:49 No Known Allergies; hb - PMHx: 15:31 nerve pain; Diabetes mellitus; aa5 - PSHx: 15:31 Appendectomy; section; aa5 ROS: 13:56 Constitutional: Positive for body aches, fever. jmm 13:56 Respiratory: Positive for cough. 13:56 All other systems are negative. Exam: 13:56 Constitutional: This is a well developed, well nourished patient who is awake, alert, jmm and in no acute distress. Head/Face: atraumatic. Eyes: EOMI, no conjunctival erythema appreciated ENT: Moist Mucus Membranes Neck: Trachea midline, Supple Chest/axilla: Normal chest wall appearance and motion. Cardiovascular: Regular rate and rhythm. No edema appreciated Respiratory: Normal respirations, no respiratory distress appreciated Abdomen/GI: Non distended Back: Normal ROM Skin: General appearance color normal MS/ Extremity: Moves all extremities, no obvious deformities appreciated, no edema noted to the lower extremities Neuro: Awake and alert Psych: Behavior is normal, Mood is normal, Patient is cooperative and pleasant Vital Signs: 13:47 BP 124 / 78; Pulse 103; Resp 20; Temp 98.9; Pulse Ox 100% on R/A; Weight 98.88 kg; hb Height 5 ft. 4 in. ; Pain 8/10; 15:31 BP 118 / 64; Pulse 86; Resp 20 S; Temp 98.9(O); Pulse Ox 99% on R/A; aa5 17:00 BP 124 / 87; Pulse 86; Resp 16 S; Temp 99.8(O); Pulse Ox 97% on R/A; aa5 13:47 Body Mass Index 37.42 (98.88 kg, 162.56 cm) hb 13:47 Pain Scale: Adult hb 17:00 PA notified of increased temperature aa5 MDM: 13:56 Patient medically screened. [facility] 17:20 Differential diagnosis: viral Infection, bacterial infection, URI, bronchitis, jmm pneumonia. Data reviewed: vital signs, nurses notes, lab test result(s), radiologic studies, CT scan, plain films. I considered the following discharge prescriptions or medication management in the emergency department Medications were administered in the Emergency Department. See MAR. Counseling: I had a detailed discussion with the patient and/or guardian regarding: the historical points, exam findings, and any diagnostic results supporting the discharge/admit diagnosis, radiology results, the need for outpatient follow up, to return to the emergency department if symptoms worsen or persist or if there are any questions or concerns that arise at home. 07/28 13:56 Order name: Basic Metabolic Panel; Complete Time: 15:11 [facility] 07/28 13:56 Order name: CBC with Diff; Complete Time: 14:56 [facility] 07/28 13:56 Order name: Troponin HS; Complete Time: 15:11 [facility] 07/28 13:56 Order name: Lactate w/ 2H reflex if indic.; Complete Time: 15:09 [facility] 07/28 13:56 Order name: Blood Culture Adult (2) [facility] 07/28 13:56 Order name: PT-INR; Complete Time: 15:09 [facility] 07/28 13:57 Order name: COVID-19/FLU A+B/RSV; Complete Time: 15:30 [facility] 07/28 15:11 Order name: D-Dimer; Complete Time: 15:48 [facility] 07/28 13:56 Order name: XRAY Chest (1 view); Complete Time: 16:02 [facility] 07/28 15:48 Order name: CT Chest For PE Angio; Complete Time: 17:12 [facility] 07/28 13:56 Order name: EKG; Complete Time: 13:57 [facility] 07/28 13:56 Order name: Cardiac monitoring; Complete Time: 15:31 [facility] 07/28 13:56 Order name: EKG - Nurse/Tech; Complete Time: 14:53 [facility] 07/28 13:56 Order name: IV Saline Lock; Complete Time: 14:42 [facility] 07/28 13:56 Order name: Labs collected and sent; Complete Time: 14:42 [facility] 07/28 13:56 Order name: O2 Per Protocol; Complete Time: 15:31 [facility] 07/28 13:56 Order name: O2 Sat Monitoring; Complete Time: 15:31 [facility] Administered Medications: 15:47 Drug: morphine IVP or IV 2 mg Route: IVP; Infused Over: 4 mins; Site: left antecubital; aa5 17:05 Follow up: Response: No adverse reaction; Pain is decreased aa5 15:47 Drug: Ondansetron IVP 4 mg Route: IVP; Site: left antecubital; aa5 17:05 Follow up: Response: No adverse reaction; Nausea is decreased aa5 17:05 Drug: Acetaminophen PO 650 mg Route: PO; aa5 17:40 Follow up: Response: No adverse reaction aa5 Disposition: 18:04 Co-signature as Attending Physician, Chava Hutson MD I reviewed the patient's care rt provided by the Advanced Practice Provider and agree with the diagnosis and treatment plan. Disposition Summary: 07/28/22 17:24 Discharge Ordered Location: Home [facility] Condition: Stable [facility] Diagnosis - Chest pain, unspecified jmm - Cough jm Followup: [facility] - With: Osmin Scott MD - When: 2 - 3 days - Reason: Recheck today's complaints, Continuance of care, Re-evaluation by your physician Discharge Instructions: - Discharge Summary Sheet jm - Nonspecific Chest Pain, Adult jm Forms: - Medication Reconciliation Form [facility] - Thank You Letter m - Antibiotic Education jmm - Prescription Opioid Use [facility] Prescriptions: - promethazine-codeine 6.25-10 mg/5 mL Oral syrup - administer 5 milliliter by ORAL route every 6 hours as needed for cough; 120 jmm milliliter; Refills: 0, Product Selection Permitted Signatures: Dispatcher [employer] Armando Cervantes PA PA m Melania Reulas RN RN aa5 Joan Seaman RN RN Chava Hutson MD MD rt
--- NOTE | 2022-07-31 12:34 | EKG ---
Test Date: 2022-07-28 Test Time: 14:48:54 [employer] Supervisor: TARYN MEASUREMENT RESULTS: Intervals: Rate: 113 NH: 154 QRSD: 78 QT: 328 QTc: 449 Shiro: P: 39 NH: 154 QRS: 11 T: 58 INTERPRETIVE STATEMENTS: Sinus tachycardia Cannot rule out Anterior infarct, age undetermined Abnormal ECG Compared to ECG 07/28/2020 08:00:40 Myocardial infarct finding now present Sinus rhythm no longer present Electronically Signed On 07-31-22 12:28:02 CDT by Luis Felipe Mittal
== END 2022-07-28 17:47 | disposition home or self-care (01) ==
LOC: ER 13:30
DX: R07.89 Other chest pain (principal); R05.9 Cough, unspecified; Z20.822 Contact with and (suspected) exposure to COVID-19; E11.9 Type 2 diabetes mellitus without complications
CPT/HCPCS: 87040 ×2; 85025; 80048; 36415; 85610; 85379; 83605; 84484; 0241U; 71275; 71045; 96375; 96374; 99285; Q9967; J2270; J2405; 93005

== ENCOUNTER 2024-02-19 06:31 | Emergency (ER) | payer BC ==
[2024-02-19] MEDS ORDERED: DIPHENHYDRAMINE 50 MG/ML VIAL ONE (07:13)
[2024-02-19] MEDS ORDERED: KETOROLAC 30 MG/ML INJ ONE (07:13)
[2024-02-19] MEDS ORDERED: METOCLOPRAMIDE 10 MG/2mL INJ ONE (07:13)
[2024-02-19 07:29] LABS: Absolute Basophils 0.1 K/uL (0-0.5); Absolute Eosinophils 0.1 K/uL (0-0.5); Absolute Lymphocytes (CBC) 3.3 K/uL (0.7-4.9); Absolute Monocytes 0.6 K/uL (0.1-1.3); Absolute Neutrophil 9.9 K/uL (1.8-8.0); Basophils % 0.5 % (0-1.3); Eosinophils % 1.1 % (0-4.4); Hematocrit 42.6 % (36.0-45.0); Hemoglobin 14.1 g/dL (12.0-15.0); Lymphocytes % 23.3 % (15.3-44.8); MCV 90.9 fL (80-100); MPV 7.9 fL (7.6-11.3); Monocytes % 4.4 % (3.3-12.3); Neutrophils % 70.7 % (41.7-73.7); Nucleated Red Blood Cells % 0.1 % (0-0); Platelets 372 thou/uL (152-406); RBC Red Blood Cell Count 4.69 M/uL (3.86-4.86); Red Cell Distribution Width 13.5 % (12.1-15.2)
[2024-02-19 07:56] LABS: ALT/SGPT 21 U/L (13-56); Albumin 3.4 g/dL (3.4-5.0); Alkaline Phosphatase 85 U/L (45-117); Anion Gap 5.8 mEq/L (5.0-15.0); BUN Blood Urea Nitrogen 18 mg/dL (7-18); Bicarbonate 30 mEq/L (21-32); Bilirubin Total 0.4 mg/dL (0.2-1.0); Globulin 3.4 g/dL (2.3-3.5); Glomerular Filtration Rate 77 ml/min (=/>90); Glucose Level 87 mg/dL (74-106); Potassium 3.8 mEq/L (3.5-5.1); Protein, Total 6.8 g/dL (6.4-8.2); Sodium Level 138 mEq/L (136-145)
[2024-02-19 07:57] LABS: AST/SGOT < 10 U/L (15-37); Bilirubin Direct < 0.2 mg/dL (0-0.2); Bilirubin Indirect, Calculated 0.2 mg/dL (0.2-0.8); Troponin High Sensitivity < 3.0 pg/mL (<58.9)
--- NOTE | 2024-02-19 08:00 | RAD REPORT ---
EXAM: CT brain without contrast HISTORY: Headache COMPARISON: 2009 TECHNIQUE: Multiple contiguous axial images were obtained and a CT of the brain without contrast.. Sagittal and coronal reconstruction performed. Automated exposure control, adjustment of the mA and/or kV according to patient size, and/or iterative reconstruction. Unless otherwise specified, incidental f indings do not require dedicated imaging follow-u FINDINGS: An intracranial bleed is not seen Ventricles are normal caliber No extra-axial fluid collection noted No significant hypodensity within the brain No fluid within the visualized sinuses or mastoids noted. IMPRESSION: No acute intracranial abnormality noted. If the patient's symptoms persist MRI of the brain would be recommended.
--- NOTE | 2024-02-19 08:09 | RAD REPORT ---
Procedure: Chest Single View HISTORY: Palpitations COMPARISON: 2022 FINDINGS: The lungs appear clear of acute infiltrate. No significant pleural effusion noted. The heart is normal size. IMPRESSION: No acute abnormality is displayed.
--- NOTE | 2024-02-19 08:31 | EDPHYS ---
Physician Documentation [facility] Name: Paulina Ryan Age: 63 yrs Sex: Female : 1960 Arrival Date: 02/19/2024 Time: 06:31 Bed 8 Private MD: ED Physician Chava Hutson HPI: 02/18 09:30 This 63 yrs old Female presents to ER via Ambulatory with complaints of Headache. rt 09:30 Patient presents to the ED with frontal headache. She does report a history of rt migraines, states that it felt differently than a previous migraine but cannot be more specific regarding that. Patient states that symptoms have improved, now feels like a typical migraine for her. States that she felt palpitations, that her heart was pounding earlier. Denies other acute complaints at this time, symptoms are moderate in severity, no other aggravating or alleviating factors.. Historical: - Allergies: 07:22 No Known Allergies; hb - PMHx: 07:22 diabetes mellitus; nerve pain; hb - PSHx: 07:22 Appendectomy; section; hb - Immunization history:: Adult Immunizations up to date. - Infectious Disease History:: Denies. - Social history:: Smoking status: Patient denies any tobacco usage or history of. - Family history:: not pertinent. ROS: 09:30 Constitutional: Negative for fever, chills, and weight loss, Respiratory: Negative for rt shortness of breath, cough, wheezing, and pleuritic chest pain, Abdomen/GI: Negative for abdominal pain, nausea, vomiting, diarrhea, and constipation, MS/Extremity: Negative for injury and deformity, Skin: Negative for injury, rash, and discoloration, 09:30 Cardiovascular: Positive for palpitations, Negative for chest pain, 09:30 Neuro: Positive for headache, Negative for loss of consciousness, Exam: 09:30 Constitutional: This is a well developed, well nourished patient who is awake, alert, rt and in no acute distress. Head/Face: Normocephalic, atraumatic. Chest/axilla: Normal chest wall appearance and motion. Nontender with no deformity. No lesions are appreciated. Cardiovascular: Regular rate and rhythm with a normal S1 and S2. No gallops, murmurs, or rubs. Normal PMI, no JVD. No pulse deficits. Respiratory: Lungs have equal breath sounds bilaterally, clear to auscultation and percussion. No rales, rhonchi or wheezes noted. No increased work of breathing, no retractions or nasal flaring. Abdomen/GI: Soft, non-tender, with normal bowel sounds. No distension or tympany. No guarding or rebound. No evidence of tenderness throughout. Skin: Warm, dry with normal turgor. Normal color with no rashes, no lesions, and no evidence of cellulitis. MS/ Extremity: Pulses equal, no cyanosis. Neurovascular intact. Full, normal range of motion. Neuro: Awake and alert, GCS 15, oriented to person, place, time, and situation. Cranial nerves II-XII grossly intact. Motor strength 5/5 in all extremities. Sensory grossly intact. Cerebellar exam normal. Normal gait. 09:30 ECG was reviewed by the Attending Physician. Vital Signs: 07:00 Pain 10/10; hb 07:00 BP 135 / 76; Pulse 89; Resp 16; Temp 98; Pulse Ox 99% ; bp 08:43 BP 127 / 75; Pulse 77; Resp 16; Pulse Ox 99% ; bp 07:00 Pain Scale: Adult hb MDM: 06:59 Medical Screening Exam initiated rt 09:30 Differential diagnosis: Migraine, dysrhythmia, palpitations, intracranial hemorrhage. rt Data reviewed: vital signs, nurses notes, lab test result(s), EKG, radiologic studies. Consideration of Admission/Observation Escalation of care including admission/observation considered. Low suspicion for subarachnoid hemorrhage clinically. Normal CT scan, symptoms resolved with migraine cocktail in the ED. Do not believe that further workup is indicated at this time. Patient with normal EKG, normal labs, white count most attributable to patient being on steroids. Do not suspect infectious etiology. Stable for outpatient care.. I considered the following discharge prescriptions or medication management in the emergency department Medications were administered in the Emergency Department. See MAR. Independent interpretation of the following test(s) in the Emergency Department CT Scan: My interpretation is No intracranial hemorrhage seen on interpretation of CT scan images. Care significantly affected by the following chronic conditions: Diabetes. Counseling: I had a detailed discussion with the patient and/or guardian regarding the historical points, exam findings, and any diagnostic results supporting the discharge/admit diagnosis, lab results, radiology results, the need for outpatient follow up, to return to the emergency department if symptoms worsen or persist or if there are any questions or concerns that arise at home. Response to treatment: the patient's symptoms have markedly improved after treatment. 02/18 07:05 Order name: Basic Metabolic Panel; Complete Time: 08:11 rt 02/18 07:05 Order name: CBC with Diff; Complete Time: 08:11 rt 02/18 07:05 Order name: LFT's; Complete Time: 08:11 rt 02/18 07:05 Order name: Troponin HS; Complete Time: 08:11 rt 02/18 07:05 Order name: TSH; Complete Time: 08:11 rt 02/18 07:05 Order name: XRAY Chest (1 view); Complete Time: 08:11 rt 02/18 07:05 Order name: CT Head Brain wo Cont; Complete Time: 08:11 rt 02/18 07:05 Order name: EKG; Complete Time: 07:06 rt 02/18 07:05 Order name: Cardiac monitoring; Complete Time: 07:06 rt 02/18 07:05 Order name: EKG - Nurse/Tech; Complete Time: 07:06 rt 02/18 07:05 Order name: IV Saline Lock; Complete Time: 07:21 rt 02/18 07:05 Order name: Labs collected and sent; Complete Time: 07:21 rt 02/18 07:05 Order name: O2 Per Protocol; Complete Time: 07:06 rt 02/18 07:05 Order name: O2 Sat Monitoring; Complete Time: 07:06 rt EC:30 Rate is 56 beats/min. Rhythm is regular, Sinus bradycardia with No ectopy. QRS [place] is rt Normal. DE interval is normal. QRS interval is normal. QT interval is normal. No Q waves. T waves are Normal. No ST changes noted. Administered Medications: 07:15 Drug: metoCLOPramide IVP 10 mg IVP once; over 1 to 2 minutes Route: IVP; Site: left bp antecubital; 08:44 Follow up: Response: No adverse reaction bp 07:15 Drug: diphenhydrAMINE IVP 25 mg IVP once Route: IVP; Site: left antecubital; bp 08:44 Follow up: Response: No adverse reaction bp 07:15 Drug: Ketorolac IVP 15 mg IVP once Route: IVP; Site: left antecubital; bp 08:44 Follow up: Response: No adverse reaction bp Disposition Summary: 02/19/24 08:30 Discharge Ordered Notes: Location: Home rt Problem: new rt Symptoms: are resolved rt Condition: Stable rt Diagnosis - Migraine without aura, not intractable rt - Palpitations rt Followup: rt - With: Private Physician - When: 2 - 3 days - Reason: Discharge Instructions: - Discharge Summary Sheet rt - Migraine Headache rt - Palpitations rt Forms: - Family Work Release rt - Medication Reconciliation Form rt - Antibiotic Education rt - Prescription Opioid Use rt - Patient Portal Instructions rt - Leadership Thank You Letter rt Signatures: Dispatcher [employer] EDMS Joan Seaman RN RN hb Stanley Vazquez RN RN bp Chava Hutson MD MD rt Corrections: (The following items were deleted from the chart) 07:06 07:05 BASIC METABOLIC PANEL+C.LAB.BRZ ordered. EDMS EDMS 07:06 07:05 CBC+H.LAB.BRZ ordered. EDMS EDMS 07:06 07:05 HEPATIC FUNCTION+C.LAB.BRZ ordered. EDMS EDMS 07:06 07:05 Troponin High Sensitivity+C.LAB.BRZ ordered. EDMS EDMS 07:06 07:05 THYROID STIMULAT HORMONE+C.LAB.BRZ ordered. EDMS EDMS
--- NOTE | 2024-02-19 08:31 | ER ---
Nurse's Notes [facility] Name: Paulina Ryan Age: 63 yrs Sex: Female : 1960 Arrival Date: 02/19/2024 Time: 06:31 Bed 8 Private MD: Diagnosis: Migraine without aura, not intractable;Palpitations Presentation: 02/18 07:00 Chief complaint: Headache since last night, worst ever, + photophobia. Coronavirus hb screen: At this time, the client does not indicate any symptoms associated with coronavirus-19. Ebola Screen: No symptoms or risks identified at this time. Initial Sepsis Screen: Does the patient meet any 2 criteria? No. Patient's initial sepsis screen is negative. Does the patient have a suspected source of infection? No. Patient's initial sepsis screen is negative. Risk Assessment: Do you want to hurt yourself or someone else? Patient reports no desire to harm self or others. Onset of symptoms was February 18, 2024. 07:00 Method Of Arrival: Ambulatory hb 07:00 Acuity: CHENTE 3 hb Triage Assessment: 07:00 General: Appears in no apparent distress. uncomfortable, Behavior is calm, cooperative, bp appropriate for age. Pain: Complains of pain in head. Neuro: Level of Consciousness is awake, alert, obeys commands, Oriented to Appropriate for age Reports headache. Historical: - Allergies: : No Known Allergies; hb - PMHx: 07: diabetes mellitus; nerve pain; hb - PSHx: 07:22 Appendectomy; section; hb - Immunization history:: Adult Immunizations up to date. - Infectious Disease History:: Denies. - Social history:: Smoking status: Patient denies any tobacco usage or history of. - Family history:: not pertinent. Screenin:22 [facility] ED Fall Risk Assessment (Adult) History of falling in the last 3 months, hb including since admission No falls in past 3 months (0 pts) Confusion or Disorientation No (0 pts) Intoxicated or Sedated No (0 pts) Impaired Gait No (0 pts) Mobility Assist Device Used No (0 pt) Altered Elimination No (0 pt) Score/Fall Risk Level 0 - 2 = Low Risk Oriented to surroundings, Maintained a safe environment, Educated pt \T\ family on fall prevention, incl call for assistance when getting out of bed. Abuse screen: Denies threats or abuse. Denies injuries from another. Nutritional screening: No deficits noted. Tuberculosis screening: No symptoms or risk factors identified. Assessment: 07:25 General: Appears in no apparent distress. uncomfortable, Behavior is calm, cooperative. hb Pain: Pain currently is 10 out of 10 on a pain scale. Neuro: Level of Consciousness is awake, alert, obeys commands, Oriented to person, place, time, situation, Reports headache photophobia. Cardiovascular: Patient's skin is warm and dry. Respiratory: Respiratory effort is even, unlabored, Respiratory pattern is regular, symmetrical. GI: No signs and/or symptoms were reported involving the gastrointestinal system. : No signs and/or symptoms were reported regarding the genitourinary system. EENT: No signs and/or symptoms were reported regarding the EENT system. Derm: Skin is pink, warm \T\ dry. Musculoskeletal: No signs and/or symptoms reported regarding the musculoskeletal system. 08:43 Reassessment: D/C AMBULATORY WITH FAMILY. bp Vital Signs: 07:00 Pain 10/10; hb 07:00 BP 135 / 76; Pulse 89; Resp 16; Temp 98; Pulse Ox 99% ; bp 08:43 BP 127 / 75; Pulse 77; Resp 16; Pulse Ox 99% ; bp 07:00 Pain Scale: Adult hb ED Course: 06:33 Patient arrived in ED. jj6 06:58 Chava Hutson MD is Attending Physician. rt 07:04 Stanley Vazquez, ROHIT is Primary Nurse. bp 07:19 Inserted saline lock: 20 gauge in left antecubital area, using aseptic technique. Blood hb collected. Flushed with 10 mL NS. 07:20 Basic Metabolic Panel Sent. bc6 07:20 CBC with Diff Sent. bc6 07:20 LFT's Sent. bc6 07:21 Troponin HS Sent. bc6 07:21 Inserted saline lock: 20 gauge in left antecubital area, using aseptic technique. Blood bc6 collected. Flushed with 10 mL NS. 07:22 Arm band placed on. hb 07:24 Triage completed. hb 07:29 CT Head Brain wo Cont In Process Unspecified. EDMS 08:04 XRAY Chest (1 view) In Process Unspecified. EDMS 08:43 No provider procedures requiring assistance completed. IV discontinued, intact, bp bleeding controlled, No redness/swelling at site. Pressure dressing applied. 08:43 Patient has correct armband on for positive identification. bp Administered Medications: 07:15 Drug: metoCLOPramide IVP 10 mg IVP once; over 1 to 2 minutes Route: IVP; Site: left bp antecubital; 08:44 Follow up: Response: No adverse reaction bp 07:15 Drug: diphenhydrAMINE IVP 25 mg IVP once Route: IVP; Site: left antecubital; bp 08:44 Follow up: Response: No adverse reaction bp 07:15 Drug: Ketorolac IVP 15 mg IVP once Route: IVP; Site: left antecubital; bp 08:44 Follow up: Response: No adverse reaction bp Medication: 07:22 VIS not applicable for this client. hb Outcome: 08:30 Discharge ordered by . rt 08:43 Discharged to home ambulatory, with family, bp 08:43 Condition: stable 08:43 Discharge instructions given to patient, Instructed on discharge instructions, follow up and referral plans. Demonstrated understanding of instructions, follow-up care, 08:45 Patient left the ED. bp Signatures: Dispatcher [employer] EDMS Joan Seaman RN RN hb Stanley Vazquez RN RN bp Katie Hill jj6 Chava Hutson MD MD rt Shweta Lee bc6
[2024-02-19 11:08] VITALS: O2SAT 99
[2024-02-19 11:09] VITALS: BP 135/76; TEMP 98
--- NOTE | 2024-02-21 11:59 | EKG ---
Test Date: 2024-02-19 Test Time: 07:01:29 Tobacco Wrapping Machine Tender: THALIA MEASUREMENT RESULTS: Intervals: Rate: 56 ID: [id number] QRSD: 86 QT: 434 QTc: 418 Hunter: P: 36 ID: [id number] QRS: 33 T: 62 INTERPRETIVE STATEMENTS: Sinus bradycardia Otherwise normal ECG Compared to ECG 07/28/2022 14:48:54 Sinus tachycardia no longer present Myocardial infarct finding no longer present Electronically Signed On 02-21-24 11:53:37 CDT by Bryce Wild
== END 2024-02-19 08:45 | disposition home or self-care (01) ==
LOC: ER 06:31
DX: G43.009 Migraine without aura, not intractable, without status migrainosus (principal); R00.2 Palpitations; E11.9 Type 2 diabetes mellitus without complications
CPT/HCPCS: 93005; 85025; 80048; 36415; 80076; 84443; 84484; 70450; 71045; J2765; J1200; 96374; 96375; 99284

== ENCOUNTER 2024-05-07 08:23 | Emergency (ER) | payer BC ==
[2024-05-07] MEDS ORDERED: KETOROLAC 30 MG/ML INJ ONE (09:11)
[2024-05-07] MEDS ORDERED: DIPHENHYDRAMINE 50 MG/ML VIAL ONE (09:11)
[2024-05-07] MEDS ORDERED: METOCLOPRAMIDE 10 MG/2mL INJ ONE (09:11)
[2024-05-07] MEDS ORDERED: NA CHLORIDE 0.9% 500 ML ONE (09:12)
[2024-05-07 09:24] LABS: Absolute Eosinophils 0.1 K/uL (0-0.5); Absolute Lymphocytes (CBC) 0.8 K/uL (0.7-4.9); Absolute Monocytes 0.5 K/uL (0.1-1.3); Basophils % 0.8 % (0-1.3); Hematocrit 41.4 % (36.0-45.0); Hemoglobin 13.9 g/dL (12.0-15.0); Lymphocytes % 14.4 % (15.3-44.8); MCH 30.8 pg (27.0-35.0); MCHC 33.7 g/dL (32.0-36.0); MCV 91.3 fL (80-100); MPV 8.5 fL (7.6-11.3); Monocytes % 9.8 % (3.3-12.3); Nucleated Red Blood Cells % 0.2 % (0-0); Platelets 265 thou/uL (152-406); RBC Red Blood Cell Count 4.53 M/uL (3.86-4.86); Red Cell Distribution Width 13.6 % (12.1-15.2)
[2024-05-07 09:31] LABS: Anion Gap 7.2 mEq/L (5.0-15.0); Potassium 4.2 mEq/L (3.5-5.1)
--- NOTE | 2024-05-07 09:58 | EDPHYS ---
Physician Documentation [facility] Name: Paulina Ryan Age: 63 yrs Sex: Female : 1960 Arrival Date: 05/07/2024 Time: 08:23 Bed 11 Private MD: ED Physician Blake Edge HPI: 05/07 08:47 This 63 yrs old Female presents to ER via Unassigned with complaints of Flu ec2 Symptoms. 08:47 Patient arrives today for evaluation of upper respiratory symptoms. Patient reports ec2 cough and cold symptoms ongoing for several days. Patient has at home who tested positive for the flu recently. Some cough and cold symptoms, headaches, myalgias. No vomiting, no diarrhea. Historical: - Allergies: 09:01 No Known Allergies; jl7 - PMHx: 09:01 diabetes mellitus; nerve pain; jl7 - PSHx: 09:01 Appendectomy; section; jl7 - Immunization history:: Adult Immunizations unknown. - Infectious Disease History:: Denies. - Social history:: Smoking status: Patient denies any tobacco usage or history of. ROS: 08:52 Constitutional: as per hpi ec2 Exam: 08:52 Constitutional: GEN: NAD Head: atraumatic Eyes: EOMI Ears: External ears are ec2 normal. CV: regular rate LUNGS: no respiratory distress, no wheezes, rales or rhonchi ABD: non-distended SKIN: no evidence of rashes MSK: no evidence of trauma Vital Signs: 08:58 BP 138 / 68; Pulse 71; Resp 17; Temp 97.1; Pulse Ox 100% ; Weight 90.26 kg; Height 5 jl7 ft. 4 in. ; Pain 9/10; 08:58 Body Mass Index 34.16 (90.26 kg, 162.56 cm) jl7 08:58 Pain Scale: Adult jl7 MDM: 08:35 Medical Screening Exam initiated ec2 08:52 Data reviewed: vital signs, nurses notes. ED course: Patient arrives today for URI ec2 signs symptoms. Examination is revealing for reassuring pulmonary examination. Will obtain lab work, treat the patient's symptoms, obtain chest x-ray. 1. Will treat for influenza given patient with known influenza contact.. 09:50 ED course: Labs unrevealing. Will discharge home with presumptive flu diagnosis. Return ec2 precautions given. 05/07 08:47 Order name: CBC with Diff; Complete Time: 09:50 ec2 05/07 08:47 Order name: BMP; Complete Time: 09:37 ec2 05/07 08:47 Order name: CXR XRAY ec2 05/07 08:47 Order name: IV; Complete Time: 09:09 ec2 Administered Medications: 09:10 Drug: Ketorolac IVP 15 mg IVP once Route: IVP; Site: left antecubital; jl7 10:02 Follow up: Response: No adverse reaction; No change in condition jl7 09:10 Drug: NS 0.9% IV 500 ml 500 ml IV at 1 bolus once; to be given as a bolus over 30 jl7 minutes Volume: 500 ml; Route: IV; Rate: 1 bolus; Site: left antecubital; 09:45 Follow up: Response: No adverse reaction; IV Status: Completed infusion; IV Intake: jl7 500ml 09:12 Drug: diphenhydrAMINE IVP 25 mg IVP once Route: IVP; Site: left antecubital; jl7 10:02 Follow up: Response: No adverse reaction; No change in condition jl7 09:15 Drug: metoCLOPramide IVP 10 mg IVP once; over 1 to 2 minutes Route: IVP; Site: left jl7 antecubital; 10:02 Follow up: Response: No adverse reaction; No change in condition jl7 10:02 Drug: Dexamethasone IM 10 mg IM once Route: IM; Site: left deltoid; jl7 10:02 Follow up: Response: Medication administered at discharge. jl7 Disposition Summary: 05/07/24 09:58 Discharge Ordered Notes: Location: Home ec2 Condition: Stable ec2 Diagnosis - Influenza due to identified novel influenza A virus ec2 Followup: ec2 - With: Private Physician - When: - Reason: Recheck today's complaints Discharge Instructions: - Discharge Summary Sheet ec2 - Influenza, Adult ec2 Forms: - Medication Reconciliation Form ec2 - Antibiotic Education ec2 - Prescription Opioid Use ec2 - Patient Portal Instructions ec2 - Leadership Thank You Letter ec2 Signatures: Dispatcher [employer] Isabelle Ramirez RN RN jl7 Blake Edge MD MD ec2
--- NOTE | 2024-05-07 09:58 | ER ---
Nurse's Notes [facility] [place], [place] Name: Paulina Ryan Age: 63 yrs Sex: Female : 1960 Arrival Date: 05/07/2024 Time: 08:23 Bed 11 Private MD: Diagnosis: Influenza due to identified novel influenza A virus Presentation: 05/07 08:58 Chief complaint: Patient states: Flu like symptoms x 3 days. Coronavirus screen: Client jl7 presents with at least one sign or symptom that may indicate coronavirus-19. Ebola Screen: No symptoms or risks identified at this time. Initial Sepsis Screen: Does the patient meet any 2 criteria? No. Patient's initial sepsis screen is negative. Does the patient have a suspected source of infection? No. Patient's initial sepsis screen is negative. Risk Assessment: Do you want to hurt yourself or someone else? Patient reports no desire to harm self or others. Onset of symptoms was May 05, 2024. 08:58 Method Of Arrival: Ambulatory ed [facility] 08:58 Acuity: CHENTE 3 jl7 Triage Assessment: 09:01 General: Appears in no apparent distress. uncomfortable, Behavior is calm, cooperative, jl7 appropriate for age. Pain: Complains of pain in headache Pain currently is 9 out of 10 on a pain scale. Historical: - Allergies: 09: No Known Allergies; jl7 - PMHx: 09:01 diabetes mellitus; nerve pain; jl7 - PSHx: 09:01 Appendectomy; section; jl7 - Immunization history:: Adult Immunizations unknown. - Infectious Disease History:: Denies. - Social history:: Smoking status: Patient denies any tobacco usage or history of. Screenin:30 [facility] ED Fall Risk Assessment (Adult) History of falling in the last 3 months, jl7 including since admission No falls in past 3 months (0 pts) Confusion or Disorientation No (0 pts) Intoxicated or Sedated No (0 pts) Impaired Gait No (0 pts) Mobility Assist Device Used No (0 pt) Altered Elimination No (0 pt) Score/Fall Risk Level 0 - 2 = Low Risk Oriented to surroundings, Maintained a safe environment. Abuse screen: Denies threats or abuse. Denies injuries from another. Nutritional screening: No deficits noted. Tuberculosis screening: No symptoms or risk factors identified. Assessment: 10:02 Reassessment: On discharge pt states this is the worst hospital and I will not return. jl7 Pt reports the service took too long today and the last time she was here there was blood on the bathroom floor. Vital Signs: 08:58 BP 138 / 68; Pulse 71; Resp 17; Temp 97.1; Pulse Ox 100% ; Weight 90.26 kg; Height 5 jl7 ft. 4 in. ; Pain 9/10; 08:58 Body Mass Index 34.16 (90.26 kg, 162.56 cm) jl7 08:58 Pain Scale: Adult jl7 ED Course: 08:25 Patient arrived in ED. mr 08:35 Blake Edge MD is Attending Physician. ec2 08:45 Warm blanket given. jl7 08:45 Arm band placed on right wrist. jl7 08:49 Isabelle Morocho RN is Primary Nurse. jl7 09:01 Triage completed. jl7 09:09 CBC with Diff Sent. ty 09:09 BMP Sent. ty 09:10 Initial lab(s) drawn, by me, sent to lab. Inserted saline lock: 20 gauge in left ty antecubital area, using aseptic technique. Blood collected. Flushed with 10 mL NS. 09:15 CXR XRAY In Process Unspecified. EDMS 09:15 Warm blanket given. jl7 09:30 Patient has correct armband on for positive identification. Bed in low position. Call jl7 light in reach. Side rails up X 1. Provided Education on: use of call floyd. 10:02 No provider procedures requiring assistance completed. IV discontinued, intact, jl7 bleeding controlled, No redness/swelling at site. Pressure dressing applied. Administered Medications: 09:10 Drug: Ketorolac IVP 15 mg IVP once Route: IVP; Site: left antecubital; jl7 10:02 Follow up: Response: No adverse reaction; No change in condition jl7 09:10 Drug: NS 0.9% IV 500 ml 500 ml IV at 1 bolus once; to be given as a bolus over 30 jl7 minutes Volume: 500 ml; Route: IV; Rate: 1 bolus; Site: left antecubital; 09:45 Follow up: Response: No adverse reaction; IV Status: Completed infusion; IV Intake: jl7 500ml 09:12 Drug: diphenhydrAMINE IVP 25 mg IVP once Route: IVP; Site: left antecubital; jl7 10:02 Follow up: Response: No adverse reaction; No change in condition jl7 09:15 Drug: metoCLOPramide IVP 10 mg IVP once; over 1 to 2 minutes Route: IVP; Site: left jl7 antecubital; 10:02 Follow up: Response: No adverse reaction; No change in condition jl7 10:02 Drug: Dexamethasone IM 10 mg IM once Route: IM; Site: left deltoid; jl7 10:02 Follow up: Response: Medication administered at discharge. jl7 Medication: 09:30 VIS not applicable for this client. jl7 Intake: 09:45 IV: 500ml; Total: 500ml. jl7 Outcome: 09:58 Discharge ordered by . ec2 10:02 Discharged to home ambulatory, with family, jl7 10:02 Condition: stable 10:02 Discharge instructions given to patient, Instructed on discharge instructions, follow up and referral plans. Demonstrated understanding of instructions, follow-up care, 10:05 Patient left the ED. jl7 Signatures: Dispatcher [employer] EDMI Snehal Saavedra, Reg Reg mr Isabelle Morocho, RN RN jl7 Blake Edge MD MD ec2 Brice Viveros Corrections: (The following items were deleted from the chart) 09:57 08:58 BP 138 / 68; Pulse 17bpm; Resp 17bpm; Pulse Ox 100%; Temp 97.1F; 90.26 kg; Height jl7 5 ft. 4 in.; BMI: 34.1; Pain 9/10, Adult; jl7 10:34 10:31 Patient left the ED. jl7 jl7
[2024-05-07] MEDS ORDERED: dexAMETHasone 10 MG/ML VIAL ONE (10:03)
[2024-05-07 11:04] VITALS: BP 138/68; TEMP 97.1; O2SAT 100
--- NOTE | 2024-05-07 11:23 | RAD REPORT ---
EXAMINATION: ONE VIEW CHEST XR CLINICAL INDICATION: COUGH TECHNIQUE: Frontal chest projection is submitted. Examination is limited by patient positioning and t echnique. COMPARISON: 02/19/2024 FINDINGS: The lungs are well inflated and clear. The heart is normal in size. No displaced fractures identified . IMPRESSION: No acute intrathoracic abnormalities.
== END 2024-05-07 10:31 | disposition home or self-care (01) ==
LOC: ER 08:23
DX: J10.1 Influenza due to other identified influenza virus with other respiratory manifestations (principal)
CPT/HCPCS: 96361; 85025; 80048; 36415; 71045; 96375; 96372; 96374; 99284; J2765; J1200; J1100; J7040